=== PATIENT | male | born 1950 | race Caucasian/White ===

== ENCOUNTER 2018-12-30 14:28 | Emergency (ER) | payer OTHER | END 2018-12-30 15:50 | disposition home or self-care (01) | LOC: JERFT 14:28 ==

== ENCOUNTER 2019-12-10 09:23 | Inpatient (IN) | payer OTHER ==
--- NOTE | 2019-12-10 09:35 | PDOC ---
Rapid Medical Evaluation Medical Evaluation: Allergies Allergy/AdvReac Type Severity Reaction Status Date / Time NO Inhibitors Allergy Unknown Verified 11/19/19 08:44 lisinopril AdvReac Cough Verified 11/19/19 08:44 12/10/19 09:27 69 yo male h/o DM, HTN, CAD s/p bypass 1996 on plavix, CHF, CKD, anemia c/o fatigue, ROWELL x 1 month. worsening swelling to b/l LE and groin over the past [address] Bledsoe from wound center for fluid overload. had b/l LE dressings changed today. PMD Dr. Maravilla recently increased furosemide to 40 mg twice day for 5 days, today is day 4 out of 5, then back to 40 mg daily. VSS ill appearing b/l LE clean dressings noted A/P: ROWELL labs ecg cxr
--- NOTE | 2019-12-10 09:47 | PDOC ---
History of Present Illness - General Chief Complaint: Edema Stated Complaint: PAIN - History of Present Illness Initial Comments: Pt is a 69M w/ a history of DM, HTN, CAD s/p bypass 1996 (Plavix), CHF, CKD, anemia who presents for evaluation of 2 weeks of becoming easily fatigued with activity and worsening BLE swelling and worsening weeping from his lower legs. He states he was told to increase his Lasix dose from 40mg daily to 80mg daily for 5 days (today is day 5) w/ no improvement in his swelling. He states this last happened several years ago and was admitted for diuresis (at [facility]) He states that he now becomes tired after 10 step He reports BLE edema that is worsening over 2 weeks. He also reports right inner thigh pain. This was evaluated by Dr. Bledsoe and he was told it is likely due to his volume overload. Denies fevers/chills, chest pain, SOB, GONZALEZ, vision changes, dizziness, abdominal pain, N/V/C/D, or changes in strength/sensation 12/10/19 09:47 Past History - Medical History Allergies/Adverse Reactions: Allergies Allergy/AdvReac Type Severity Reaction Status Date / Time NO Inhibitors Allergy Unknown Verified 12/10/19 09:33 lisinopril AdvReac Cough Verified 12/10/19 09:33 Home Medications: Ambulatory Orders Omeprazole 40 mg PO DAILY 09/28/19 Carvedilol 12.5 mg PO Q12H 12/10/19 Clopidogrel Bisulfate [Clopidogrel] 75 mg PO DAILY 12/10/19 Cyanocobalamin [Vitamin B12 -] 1 tab PO DAILY 12/10/19 Ferrous Sulfate [Iron] 325 mg PO DAILY 12/10/19 Furosemide 40 mg PO BID 12/10/19 Hydralazine HCl 25 mg PO BID 12/10/19 Isosorbide Dinitrate [Isordil] 10 mg PO BID 12/10/19 Rosuvastatin [Crestor -] 20 mg PO HS 12/10/19 Anemia: Yes Asthma: No Cancer: No Cardiac Disorders: No CVA: No COPD: No CHF: Yes (quad bypass 3 cardiac stents) Dementia: No Diabetes: Yes GI Disorders: No Disorders: Yes (kidney function) HTN: Yes Hypercholesterolemia: Yes Liver Disease: No Seizures: No Thyroid Disease: No - Surgical History Abdominal Surgery: Yes (l ing hernia) Appendectomy: No Cardiac Surgery: Yes Cholecystectomy: No Lung Surgery: No Neurologic Surgery: No Orthopedic Surgery: Yes (left foot , great toe amputation, acl and meniscus repair 1994) - Psycho-Social/Smoking History Smoking History: Never smoked Have you smoked in the past 12 months: No If you are a former smoker, when did you quit?: 12yrs old stopped Information on smoking cessation initiated: No - Substance Abuse Hx (Audit-C & DAST Scrn) How often the patient has a drink containing alcohol: Never Score: In Men: 4 or > Positive; In Women: 3 or > Positive: 0 Screen Result (Pos requires Nsg. Audit-10AR): Negative In the last yr the pt used illegal drug/Rx for NonMed reason: No Score: Yes response is considered Positive: 0 Screen Result (Positive result requires Nsg. DAST-10): Negative Review of Systems - Review of Systems Able to Perform ROS?: Yes Comments:: GENERAL/CONSTITUTIONAL: No fever or chills HEAD, EYES, EARS, NOSE AND THROAT: No change in vision. No change in hearing. No sore throat CARDIOVASCULAR: +easy fatigue with exertion RESPIRATORY: Denies cough GASTROINTESTINAL: No nausea, vomiting, diarrhea or constipation GENITOURINARY: No dysuria MUSCULOSKELETAL: No joint or muscle swelling or pain. No neck or back pain SKIN: +recent rashes being treated with topical abx by dermatology NEUROLOGIC: No headache, vertigo, loss of consciousness, or change in strength/ sensation ENDOCRINE: No increased thirst HEMATOLOGIC/LYMPHATIC: +Plavix ALLERGIC/IMMUNOLOGIC: No hives or skin allergy 12/10/19 09:46 Is the patient limited Malay proficient: No *Physical Exam - Vital Signs Last Vital Signs Temp Pulse Resp BP Pulse Ox 98.5 F 66 20 176/77 H 98 12/10/19 09:28 12/10/19 09:28 12/10/19 09:28 12/10/19 09:28 12/10/19 09:28 - Physical Exam GENERAL: Awake, alert, and oriented to person/place/time, in no acute distress HEAD: No signs of trauma, normocephalic, atraumatic EYES: PERRLA, EOMI, sclera anicteric, conjunctiva clear ENT: Hearing grossly normal, nares patent, oropharynx clear without exudates. Moist mucosa LUNGS: No distress, speaks in full sentences, diminished at bases HEART: Regular rate and rhythm, normal S1 and S2, no murmurs appreciated, peripheral pulses normal and equal bilaterally ABDOMEN: Soft, nontender, normoactive bowel sounds. No guarding, no rebound EXTREMITIES: BLE edema to proximal thigh; B/l lower legs with dressings placed by wound care (unable to examine under them); moves all extremities independently, no cellulitis NEUROLOGICAL: Cranial nerves II through XII grossly intact. Normal speech, no focal sensorimotor deficits SKIN: As above otherwise warm, dry 12/10/19 09:46 ED Treatment Course - LABORATORY CBC & Chemistry Diagram: 12/11/19 06:05 12/11/19 06:05 - RADIOLOGY Radiograph Interpretation: RAD/CHEST X-RAY PORTABLE Single view of the chest reveals clear well aerated lungs, sharp angles, prominent heart and sternal sutures, some of which are broken along with clips. There is an unfolded aorta, normal adrienne and no sign of infiltrate or failure. Soft tissues are intact. There are degenerative changes. Correlation recommended. 12/10/19 10:59 Medical Decision Making - Medical Decision Making Pt is a 69M w/ a history of DM, HTN, CAD s/p bypass 1996 (Plavix), CHF, CKD, anemia who presents for evaluation of 2 weeks of becoming easily fatigued with activity and worsening BLE swelling and worsening weeping from his lower legs. ED Course CMP, CBC, Trop I, BNP ECG CXR ECG w/ RBBB; 1st degree AV block, MD 408; no axis deviation; QTc 507 (prolonged) CXR read w/o vascular congestion, PNA, or effusion Leukopenia noted, pt w/o fever or tachycardia Anemia noted, no indication to transfuse at this time Trop I neg BNP elevated, Lasix 80mg IV once given LFTs overall unremarkable Cr elevated, at baseline 12/10/19 10:31 Limited duplex of BLE w/o evidence of DVT Pt admitted to hypervolemia for diuresis Discharge - Discharge Information Problems reviewed: Yes Clinical Impression/Diagnosis: Leg swelling, Peripheral venous insufficiency Fatigue Qualifiers: Fatigue type: unspecified Qualified Code(s): R53.83 - Other fatigue Condition: Stable - Admission Yes - Follow up/Referral - Patient Discharge Instructions - Post Discharge Activity
[2019-12-10] MEDS ORDERED: FUROSEMIDE 40 MG/4 ML INJECTABLE VIAL ONE (10:24)
[2019-12-10] MEDS ORDERED: FUROSEMIDE 40 MG/4 ML INJECTABLE VIAL IVPUSH ONE (10:25)
[2019-12-10 10:30] LABS: BASO % 1.5 % (0-2.0); EOS % 2.7 % (0-4.5); HEMATOCRIT 32.1 % (35.4-49); HEMOGLOBIN 10.3 GM/dL (11.7-16.9); MCH 31.8 pg (25.7-33.7); MCHC 32.1 g/dl (32.0-35.9); MEAN CELL VOLUME 99.2 fl (80-96); NEUT % 66.8 % (42.8-82.8); PLATELET COUNT 78 K/MM3 (134-434); RBC 3.24 M/mm3 (4.00-5.60); RDW 16.7 % (11.9-15.9); WHITE BLOOD COUNT 3.7 K/mm3 (4.0-10.0)
[2019-12-10 10:38] LABS: INR 1.31 (0.83-1.09); PROTHROMBIN TIME (PATIENT) 15.5 SEC (9.7-13.0)
[2019-12-10 10:43] LABS: EPI CELLS 18 /uL (0-25.1); HYALINE CASTS 0 /uL (0-3.1); PH,URINE 6.5 (5.0-8.0); URINE APPEARANCE CLEAR; URINE BACTERIA 81 /uL (0-1359); URINE BILIRUBIN NEGATIVE (NEGATIVE); URINE COLOR YELLOW; URINE GLUCOSE (UA) NEGATIVE (NEGATIVE); URINE KETONE NEGATIVE (NEGATIVE); URINE LEUK ESTERASE NEGATIVE (NEGATIVE); URINE NITRITE NEGATIVE (NEGATIVE); URINE PROTEIN 3+ (NEGATIVE); URINE RBC 3 /uL (0-23.9); URINE WBC 10 /uL (0-25.8)
[2019-12-10 10:58] LABS: ALBUMIN 3.5 g/dl (3.4-5.0); ALK PHOS 70 U/L (45-117); ANION GAP 9 MMOL/L (8-16); BILIRUBIN,TOTAL 1.1 mg/dL (0.2-1); BLOOD UREA NITROGEN 47.7 mg/dL (7-18); CALCIUM 8.8 mg/dL (8.5-10.1); CHLORIDE 104 mmol/L (98-107); CO2 27 mmol/L (21-32); CREATININE 2.8 mg/dL (0.55-1.3); GLUCOSE,RANDOM 165 mg/dL (74-106); MAGNESIUM 2.3 mg/dL (1.8-2.4); N-TERMINAL BNP 7839.3 pg/ml (5-125); POTASSIUM 4.1 mmol/L (3.5-5.1); SGOT/AST 20 U/L (15-37); SGPT/ALT 15 U/L (13-61); SODIUM 139 mmol/L (136-145); TOT PROT 7.1 g/dl (6.4-8.2)
--- NOTE | 2019-12-10 11:50 | EKG ---
Test Reason : Blood Pressure : / mmHG Vent. Rate : 065 BPM Atrial Rate : 065 BPM P-R Int : 408 ms QRS Dur : 154 ms QT Int : 488 ms P-R-T Axes : 011 087 -69 degrees QTc Int : 507 ms SINUS RHYTHM WITH 1ST DEGREE A-V BLOCK RIGHT BUNDLE BRANCH BLOCK T WAVE ABNORMALITY, CONSIDER INFEROLATERAL ISCHEMIA ABNORMAL ECG NO PREVIOUS ECGS AVAILABLE Confirmed by Brittney Madera ([id number]) on 12/10/2019 11:50:19 AM Referred By: Confirmed By:Brittney Madera
--- NOTE | 2019-12-10 12:45 | HP ---
CHIEF COMPLAINT: worsening b/l LE swelling PCP: Dr. Maravilla HISTORY OF PRESENT ILLNESS: 69M w/ pmhx of DM, HTN, CAD (s/p bypass surgery, 1996), CHF, CKD presents in the ED for worsening b/l LE swelling. He was sent by [facility] ([facility]) for further evaluation of his b/l LE swelling. States over the past 2 weeks, he started noticing his legs more swollen, R > L, and was told by his PCP to take an extra dose of PO Lasix 40 in the evening for a total of 5 days. Today was his 4th day of taking an extra Lasix 40, but he had not noticed any improvement in the swelling. Additionally, he reports the swelling has worsened to the point where he has to stop 30 times when he walks outside (baseline he stops 10 times), due to worsening pain and swelling in his R leg. Denies magaña/c, f/c, n/v, chest pain, sob, robles, abd pain, urinary/bowel symptoms. States he takes all his medications as prescribed. He does not currently see a practice business asst as his PCP manages all his conditions. ER course was notable for: (1) Afebrile, BP 166/72, 96 RA (2) IV Lasix 80 mg; CXR showed no infiltrate/failure (3) Duplex ordered Recent Travel: Denies PAST MEDICAL HISTORY: As per HPI FAMILY HISTORY: Father - [place], at age 54 Mother - DM PAST SURGICAL HISTORY: CABG (1996) R ACL/mensicus repair cardiac stents x3 R leg angio/atherectom/angioplasty hernia repair Social History: Smoking: Denies Alcohol: Denies Drugs: Denies Walks with cane Allergies NO Inhibitors Allergy (Unknown, Verified 12/10/19 09:33) lisinopril Adverse Reaction (Verified 12/10/19 09:33) Cough Home Medications (Reconciled with PCP) Medication Instructions Recorded Clopidogrel Bisulfate [Plavix] 75 mg PO DAILY #30 tablet 01/12/18 Omeprazole 40 mg PO DAILY 09/28/19 Carvedilol 12.5 mg PO Q12H 12/10/19 Cyanocobalamin [Vitamin B12 -] 1 tab PO DAILY 12/10/19 Ferrous Sulfate [Iron] 325 mg PO DAILY 12/10/19 Furosemide 40 mg PO BID 12/10/19 Hydralazine HCl 25 mg PO BID 12/10/19 Isosorbide Dinitrate [Isordil] 10 mg PO BID 12/10/19 Rosuvastatin [Crestor -] 20 mg PO HS 12/10/19 REVIEW OF SYSTEMS CONSTITUTIONAL: Absent: fever, chills, diaphoresis, generalized weakness, malaise, loss of appetite, weight change HEENT: Absent: rhinorrhea, nasal congestion, throat pain, throat swelling, difficulty swallowing, mouth swelling, ear pain, eye pain, visual changes CARDIOVASCULAR: peripheral edema Absent: chest pain, syncope, palpitations, irregular heart rate, lightheadedness, RESPIRATORY: Absent: cough, shortness of breath, dyspnea with exertion, orthopnea, wheezing, stridor, hemoptysis GASTROINTESTINAL: Absent: abdominal pain, abdominal distension, nausea, vomiting, diarrhea, constipation, melena, hematochezia GENITOURINARY: Absent: dysuria, frequency, urgency, hesitancy, hematuria, flank pain, genital pain MUSCULOSKELETAL: Absent: myalgia, arthralgia, joint swelling, back pain, neck pain SKIN: Absent: rash, itching, pallor HEMATOLOGIC/IMMUNOLOGIC: Absent: easy bleeding, easy bruising, lymphadenopathy, frequent infections ENDOCRINE: Absent: unexplained weight gain, unexplained weight loss, heat intolerance, cold intolerance NEUROLOGIC: Absent: headache, focal weakness or paresthesias, dizziness, unsteady gait, seizure, mental status changes, bladder or bowel incontinence PSYCHIATRIC: Absent: anxiety, depression, suicidal or homicidal ideation, hallucinations. PHYSICAL EXAMINATION Vital Signs - 24 hr 12/10/19 12/10/19 12/10/19 09:28 10:40 10:56 Temperature 98.5 F Pulse Rate 66 Pulse Rate [ 83 Apical] Respiratory 20 26 H Rate Blood Pressure 176/77 H Blood Pressure 166/72 [Right Arm] O2 Sat by Pulse 98 96 96 Oximetry (%) GENERAL: Well-appearing, elderly male. NAD. AAOx3. HEENT: AT/NC. EOMI. MMM. NECK: Supple, no JVD. LUNGS: CTA B/L. No wheezes/rales noted. HEART: RRR. Normal S1, S2. NO murmurs noted. ABDOMEN: Obese, soft, nondistended. Mild +TTP MUSCULOSKELETAL: Moves all extremities. Limited RLE hip flexion. EXTREMITIES: BLE wrapped in dressing from base of toes to below the knee, unable to assess b/l LE ulcers, dressings c/d/i; L hallux amputation; stump clean dry well-healed. Visible swelling of RLE from knee to thigh, mild +TTP in R inner thigh. NEUROLOGICAL: Cranial nerves II-XII intact. Normal speech. Decreased sensation in R foot. PSYCHIATRIC: Cooperative. Good eye contact. Appropriate mood and affect. SKIN: Warm, dry, normal turgor, no rashes or lesions noted, normal capillary refill. CBCD WBC 3.7 K/mm3 (4.0-10.0) L 12/10/19 10:15 RBC 3.24 M/mm3 (4.00-5.60) L 12/10/19 10:15 Hgb 10.3 GM/dL (11.7-16.9) L 12/10/19 10:15 Hct 32.1 % (35.4-49) L 12/10/19 10:15 MCV 99.2 fl (80-96) H 12/10/19 10:15 MCHC 32.1 g/dl (32.0-35.9) 12/10/19 10:15 RDW 16.7 % (11.9-15.9) H 12/10/19 10:15 Plt Count 78 K/MM3 (134-434) L 12/10/19 10:15 MPV 10.0 fl (7.5-11.1) 12/10/19 10:15 CMP Sodium 139 mmol/L (136-145) 12/10/19 10:15 Potassium 4.1 mmol/L (3.5-5.1) 12/10/19 10:15 Chloride 104 mmol/L (98-107) 12/10/19 10:15 Carbon Dioxide 27 mmol/L (21-32) 12/10/19 10:15 Anion Gap 9 MMOL/L (8-16) 12/10/19 10:15 BUN 47.7 mg/dL (7-18) H 12/10/19 10:15 Creatinine 2.8 mg/dL (0.55-1.3) H 12/10/19 10:15 Calcium 8.8 mg/dL (8.5-10.1) 12/10/19 10:15 Total Bilirubin 1.1 mg/dL (0.2-1) H 12/10/19 10:15 AST 20 U/L (15-37) 12/10/19 10:15 ALT 15 U/L (13-61) 12/10/19 10:15 Alkaline Phosphatase 70 U/L (45-117) 12/10/19 10:15 Total Protein 7.1 g/dl (6.4-8.2) 12/10/19 10:15 Albumin 3.5 g/dl (3.4-5.0) 12/10/19 10:15 IMAGING: * CXR: no sign of infiltrate or failure * B/l LE duplex: No DVT in either leg ASSESSMENT/PLAN: 69M w/ pmhx of DM, HTN, CAD (s/p bypass surgery, 1996), CHF, CKD presents in the ED for worsening b/l LE swelling. #Fluid Overload; 2/2 chronic venous insufficiency vs. CHF exacerbation -Clinically, pt's has no symptoms of sob/robles, lungs are clear b/l and does not appear to have pulmonary vascular congestion. He does have swelling in lower extremity, R > L, with BNP ~7800, but pt also has CKD which may falsely elevate levels. Pt also reports he has had this issue in the past which usually improves with increased dosages of diuretic. Will cont with IV Lasix for now and monitor volume status daily. -IV Lasix 80 mg given, will cont with IV Lasix 40 mg BID -Trops neg x1, will cont to trend -CXR showed no acute process -I/O's, Daily weights -Echo ordered -LE duplex showed no evid of DVT in b/l LE -PT ordered Cont home meds: Plavix 75, Isosorbide Dinitrate 10 BID #PVD w/ Bilateral LE ulcers; s/p angioplasty/stent. Cont routine wound care per vasc surg. OP follow up. Will hold anti-platelet for no in setting of thrombocytopenia. Cont home meds: Crestor 20 #DM; Reported latest A1c ~6.5 and was recently told by PCP to d/c insulin. Will monitor for now. BGM/ISS ACHS. #CKD; Cr 2.8. Follows with nephro as outpatient. No acute issues. Avoid nephrotoxic agents. #Macrocytic Anemia; Cont home meds: Ferrous Sulfate 325, Vitamin B12 100 mcg #Thrombocytopenia; Hold all anti-platelets for now. Will cont to trend CBC, get manual diff, consult heme. #HTN/HLD; Cont home meds: Coreg 12.5 BID, Hydralazine 25 BID, Crestor 20 #CAD (s/p CABG + 3 stents). Cont home meds: Coreg 12.5 BID, Crestor 20 #Prophylaxis DVT: SCD/TEDs, will hold on chemical ppx in setting of thrombocytopenia GI: PPI #FEN -no IVf -recheck lytes in AM -diabetic/sodium-controlled diet Dispo -admit to tele Family Medical History Family Hx Cardiac Disorders: Father ( at age 54) Family Hx Diabetes: Mother Visit type - Medication Review Med list reviewed for High Risk Meds patients 65 and older: Yes - Emergency Visit Emergency Visit: Yes ED Registration Date: 12/10/19 Care time: The patient presented to the Emergency Department on the above date and was hospitalized for further evaluation of their emergent condition. - New Patient This patient is new to me today: Yes Date on this admission: 12/10/19 - Critical Care Critical Care patient: No ATTENDING PHYSICIAN STATEMENT I saw and evaluated the patient. I reviewed the resident's note and discussed the case with the resident. I agree with the resident's findings and plan as documented. SUBJECTIVE: OBJECTIVE: ASSESSMENT AND PLAN:
--- NOTE | 2019-12-10 13:45 | PDOC ---
Documentation entered by Nish Hale SCRIBE, acting as scribe for Christine Santoro MD. Christine Santoro MD: This documentation has been prepared by the lázaroe, Nish Hale SCRIBE, under my direction and personally reviewed by me in its entirety. I confirm that the documentation accurately reflects all work, treatment, procedures, and medical decision making performed by me. Attending Attestation - Resident Resident Name: Jayme Boyd - ED Attending Attestation I have performed the following: I have examined & evaluated the patient, The case was reviewed & discussed with the resident, I agree w/resident's findings & plan, Exceptions are as noted - HPI HPI: 12/10/19 10:27 The patient is a 69 year old male with a significant past medical history of insulin-dependent diabetes, HTN, CAD with bypass, and venous insufficiency who presents to the ED from wound care (Dr. Bledsoe) with bilateral lower leg edema and weeping wounds. Patient reports he has had a cough and weakness with walking as well as dyspnea lying down for the past month. Patient endorses decreased urination in response to lasix which was recently increased to 80mg. Patient denies fever, abdominal pain, headache, or any weakness. Pt denies CP, dizziness, headache, focal weakness/numbness. Patient denies any other symptoms. Allergies: NO Inhibitors, lisinopril - Physicial Exam PE: 12/10/19 10:29 Agree with resident exam - Medical Decision Making 12/10/19 13:39 69yo M presents to the ED with LE edema, ROWELL, fatigue. DDx includes CHF vs PNA vs ACS vs PE Given LE edema, obtained US DVT of LE which was negative. No other PE risk facors W/u with elevated BNP, also bedside sono with full IVC - likely fluid overload although CXR is mostly clear Plan for IV lasix, admit for further evaluation Discharge - Discharge Information Problems reviewed: Yes Clinical Impression/Diagnosis: Leg swelling Fatigue Qualifiers: Fatigue type: unspecified Qualified Code(s): R53.83 - Other fatigue - Follow up/Referral - Patient Discharge Instructions - Post Discharge Activity
--- NOTE | 2019-12-10 13:48 | PN ---
Teaching Attending Note Name of Resident: Daisy Jolley ATTENDING PHYSICIAN STATEMENT I saw and evaluated the patient. I reviewed the resident's note and discussed the case with the resident. I agree with the resident's findings and plan as documented. SUBJECTIVE:69M w/ pmhx of DM, HTN, CAD (s/p bypass surgery, 1996), CHF, PAD s/p L leg angioplasty and stent placement, CKD presents in the ED for worsening b/l LE swelling. He was sent by [facility] ([facility]) where he was seen for chronic eduardo leg wounds, for further evaluation of his b/l LE swelling. States over the past 2 weeks, he started noticing his legs more swollen, R > L, and was told by his PCP to take an extra dose of PO Lasix 40 in the evening for a total of 5 days. Today was his 4th day of taking an extra Lasix 40, but he had not noticed any improvement in the swelling. Additionally, he reports the swelling has worsened to the point where he has to stop 30 times when he walks outside (baseline he stops 10 times), due to worsening pain and swelling in his R leg. has been compliant with the meds, Denies magaña/c, f/c, n/v, chest pain, sob, robles, abd pain, urinary/bowel symptoms. States he takes all his medications as prescribed. He does not currently see a aws developer as his PCP manages all his conditions. OBJECTIVE: O/E appears comfortable, nad, alert awake oriented into 3, vss neck supple no jvd, cvs s1/s2/0 chest ctab abd soft nt no, bs+ ext bilateral leg edema, and legs wrapped in the dresseing( as per vascular surgery not to unwrap till week later, has clean wounds, ) neuro non focal, ASSESSMENT AND PLAN: 69M w/ pmhx of DM, HTN, CAD (s/p bypass surgery, 1996), CHF, CKD presents in the ED for worsening b/l LE swelling. #Fluid Overload; with h/o chf, and venous insufficiency, no improvement with po diuretics, discussed with dr Bledsoe and inpt iv diuretics, and dc planning when pt is euvolemic, 2/2 chronic venous insufficiency vs. CHF exacerbation , will cont with IV Lasix 40 mg BID check cardiac markers, 1st neg, CXR showed no acute process I/O's, Daily weights Echo ordered LE duplex showed no evid of DVT in b/l LE Isosorbide Dinitrate 10 BID #DM; Reported latest A1c ~6.5 and was recently told by PCP to d/c insulin. Will monitor for now. BGM/ISS ACHS. #CKD; Cr 2.8. Follows with nephro as outpatient. No acute issues. Avoid nephrotoxic agents. #Macrocytic Anemia; chronic Cont home meds: #Thrombocytopenia; Hold all anti-platelets for now. check manual diff and manual platelet count, monitor, #HTN/HLD; Cont home meds: Coreg 12.5 BID, Hydralazine 25 BID, Crestor 20 #CAD (s/p CABG + 3 stents). Cont home meds: Coreg 12.5 BID, Crestor 20 #Prophylaxis DVT: SCD/TEDs, will hold on chemical ppx in setting of thrombocytopenia GI: PPI
[2019-12-10] MEDS ORDERED: HEPARIN NA (PORCINE) 5,000 UNITS/ML 1ML VIAL SQ SCH (14:00)
[2019-12-10] MEDS ORDERED: CARVEDILOL 12.5 MG TABLET (FP) PO SCH (14:00)
[2019-12-10] MEDS ORDERED: HEPARIN NA (PORCINE) 5,000 UNITS/ML 1ML VIAL ONE (14:05)
[2019-12-10] MEDS: INSULIN SLIDING SCALE (NOVOLOG) 1 VIAL SQ SCH ×2 (17:00→22:30)
[2019-12-10] MEDS ORDERED: INSULIN SLIDING SCALE (NOVOLOG) 1 VIAL SQ ONE (17:04)
--- NOTE | 2019-12-10 17:07 | ECHO ---
Version: 1 Name: PILLO HYLTON Exam: Adult Echocardiogram Study Date: 12/10/2019, 3:19 PM Age: 69 Years MMode/2D Measurements & Calculations IVSd: 1.19 cm LVIDs: 2.9 cm LVIDd: 4.3 cm LVPWd: 1.08 cm LAV (MOD-bp): 65.0 ml ACS: 1.36 cm Ao root diam: 2.9 cm LVOT diam: 2.00 cm LA dimension: 4.7 cm Doppler Measurements & Calculations MV E max fermín: 117.9 cm/sec Med E/e': 30.2 MV A max fermín: 82.3 cm/sec Med Peak E' Fermín: 3.9 cm/sec MV E/A: 1.43 Lat E/e': 15.1 Lat Peak E' Fermín: 7.8 cm/sec Ao max P.7 mmHg PAUL(I,D): 1.41 cm Ao mean P.2 mmHg LV V1 mean: 51.7 cm/sec Ao V2 max: 147.8 cm/sec LV V1 mean P.20 mmHg TR max fermín: 274.2 cm/sec TR max P.4 mmHg Procedure The study was technically limited with all images being suboptimal in quality. Left Ventricle The left ventricle is grossly normal size. There is mild asymmetric left ventricular hypertrophy. Th e left ventricular ejection fraction is normal. Ejection Fraction = 55-60%. Diastolic dysfunction, Grade II (pseudonormalization pattern). Right Ventricle Borderline right ventricular enlargement. The right ventricular systolic function is normal. Atria The left atrium is mildly dilated. Right atrial size is normal. Mitral Valve There is moderate mitral valve thickening. There is mild to moderate mitral annular calcification. T here is trace to mild mitral regurgitation. Tricuspid Valve The tricuspid valve is not well visualized, but is grossly normal. There is mild tricuspid regurgita tion. Right ventricular systolic pressure is elevated at 40-50mmHg. There is mild pulmonary hypertension. Aortic Valve The aortic valve is not well visualized. No aortic regurgitation is present. Pulmonic Valve The pulmonic valve is not well visualized. Great Vessels The aortic root is not well visualized. Pericardium/Pleura There is no pericardial effusion. Tech Comments TDS due to body habitus. Patient scanned supine. Summary Statements Technically limited study LV: Grossly normal size,mild LVH,normal systolic function EF 55-60%,diastolic dysfunction grade II RV: Borderline enlargement, appears normal in function LA: Mildly dilated Clcified aortic valve ,mildly restricted Mild TR with mild pulmonary HTN Rob Cassy 12/10/2019, 5:06 PM Ordering Physician: Daisy Toro Referring Physician: DAISY TORO Performed By: Emily Groves
[2019-12-10] MEDS ORDERED: ISOSORBIDE DINITRATE 10 MG TABLET (FP) PO SCH (22:00)
[2019-12-10] MEDS ORDERED: PT OWN MED DRAWER 7, Y5N ONE (22:07)
[2019-12-10] MEDS: ROSUVASTATIN CA 20 MG TABLET (FP) PO SCH (22:17)
[2019-12-10] MEDS: hydrALAZINE HCL 25 MG TABLET (FP) PO SCH (22:17)
[2019-12-10] MEDS: CARVEDILOL 12.5 MG TABLET (FP) PO SCH (22:21)
[2019-12-10] MEDS ORDERED: INSULIN (NOVOLOG) ASPART 100 UNITS/ML 10ML VIAL ONE (22:28)
--- NOTE | 2019-12-10 23:49 | CON.HO ---
Consult - text type - Consultation Consultation Note: 69M w/ a history of DM, HTN, CAD s/p bypass 1996 (Plavix), CHF, CKD, anemia who presents for evaluation of 2 weeks of becoming easily fatigued with activity and worsening BLE swelling and worsening weeping from his lower legs. He states he was told to increase his Lasix dose from 40mg daily to 80mg daily for 5 days (today is day 5) w/ no improvement in his swelling. He reports BLE edema that is worsening over 2 weeks. He also reports right gluteal pain, nonradiating Denies fevers/chills, chest pain, SOB, GONZALEZ, vision changes, dizziness, abdominal pain, N/V/C/D, or changes in strength/sensation Allergies/Adverse Reactions: Allergies Allergy/AdvReac Type Severity Reaction Status Date / Time NO Inhibitors Allergy Unknown Verified 12/10/19 09:33 lisinopril AdvReac Cough Verified 12/10/19 09:33 Home Medications: Ambulatory Orders Coreg 25 mg PO BID 09/15/15 Crestor 20 mg PO HS 09/15/15 Isosorbide Dinitrate 10 mg PO BID 09/15/15 Lasix - 40 mg PO BID 09/15/15 Novolog 10 unit SQ DAILY PRN 09/15/15 Clopidogrel Bisulfate [Plavix] 75 mg PO DAILY #30 tablet 01/12/18 Omeprazole 40 mg PO DAILY 09/28/19 Cyanocobalamin [Vitamin B12 -] 1 tab PO DAILY 12/10/19 Ferrous Sulfate [Iron] 325 mg PO DAILY 12/10/19 PMH Anemia: Yes CHF: Yes (quad bypass 3 cardiac stents) Diabetes: Yes Disorders: Yes (kidney function) HTN: Yes Hypercholesterolemia: Yes - Surgical History Abdominal Surgery: Yes (l ing hernia) Cardiac Surgery: Yes Orthopedic Surgery: Yes (left foot , great toe amputation, acl and meniscus repair 1994) - Psycho-Social/Smoking History Smoking History: Never smoked If you are a former smoker, when did you quit?: 12yrs old stopped - Substance Abuse Hx (Aud[facility] & [facility]) How often the patient has a drink containing alcohol: Never *Physical Exam - Vital Signs Last Vital Signs Temp Pulse Resp BP Pulse Ox 98.5 F 66 20 176/77 H 98 12/10/19 09:28 12/10/19 09:28 12/10/19 09:28 12/10/19 09:28 12/10/19 09:28 - Physical Exam Cor: RSR, No murmurs, No gallops Lungs: Clear to P&A Abd: Soft, Normal bowel sounds, No organomegaly BLE wrapped in dressing from base of toes to below the knee, unable to assess b/l LE ulcers, dressings c/d/i; L hallux amputation; stump clean dry well- healed. Visible swelling of RLE from knee to thigh, RAD/CHEST X-RAY PORTABLE Single view of the chest reveals clear well aerated lungs, sharp angles, prominent heart and sternal sutures, some of which are broken along with clips. There is an unfolded aorta, normal adrienne and no sign of infiltrate or failure. Soft tissues are intact. There are degenerative changes. Labs/MEds reviewed A/P Pt is a 69M w/ a history of DM, HTN, CAD s/p bypass 1996 (Plavix), CHF, CKD, anemia who presents for evaluation of 2 weeks of becoming easily fatigued with activity and worsening BLE swelling and worsening weeping from his lower legs. ECG w/ RBBB; 1st degree AV block, RI 408; no axis deviation; QTc 507 (prolonged) CXR read w/o vascular congestion, PNA, or effusion Pancytopenia/macrocytic anemia ? consumption related to CHF r/o occult infxn --- ? wound infxn. check cultures r/o B12/folate deficiency. check TSH check U/S liver/spleen If above w/u neg. will consider w/u for marrow pathology
[2019-12-11] MEDS ORDERED: ACETAMINOPHEN 325 MG TABLET (FP) PO ONE (01:49)
[2019-12-11] MEDS: INSULIN SLIDING SCALE (NOVOLOG) 1 VIAL SQ SCH ×4 (06:21→21:43)
[2019-12-11] MEDS: FUROSEMIDE 40 MG/4 ML INJECTABLE VIAL IVPUSH SCH ×2 (06:22→13:47)
[2019-12-11 06:52] LABS: BASO % 1.3 % (0-2.0); EOS % 2.8 % (0-4.5); HEMATOCRIT 32.8 % (35.4-49); HEMOGLOBIN 10.6 GM/dL (11.7-16.9); LYMPH % 20.7 % (8-40); MCH 32.1 pg (25.7-33.7); MCHC 32.3 g/dl (32.0-35.9); MEAN CELL VOLUME 99.5 fl (80-96); MEAN PLT VOLUME 10.3 fl (7.5-11.1); MONO % 14.7 % (3.8-10.2); NEUT % 60.5 % (42.8-82.8); PLATELET COUNT 76 K/MM3 (134-434); RDW 16.4 % (11.9-15.9); WHITE BLOOD COUNT 4.2 K/mm3 (4.0-10.0)
[2019-12-11 07:27] LABS: ALBUMIN 3.4 g/dl (3.4-5.0); BILIRUBIN,TOTAL 0.9 mg/dL (0.2-1); BLOOD UREA NITROGEN 48.6 mg/dL (7-18); CALCIUM 8.6 mg/dL (8.5-10.1); CREATININE 2.8 mg/dL (0.55-1.3); MAGNESIUM 2.4 mg/dL (1.8-2.4); PHOSPHOROUS 3.6 mg/dL (2.5-4.9); TOT PROT 7.2 g/dl (6.4-8.2)
[2019-12-11] MEDS ORDERED: PT OWN MED DRAWER 7, Y5N ONE ×2 (09:31→17:09)
[2019-12-11] MEDS: hydrALAZINE HCL 25 MG TABLET (FP) PO SCH ×2 (09:36→21:38)
[2019-12-11] MEDS: ISOSORBIDE DINITRATE 10 MG TABLET (FP) PO SCH ×2 (09:36→17:56)
[2019-12-11] MEDS: CARVEDILOL 12.5 MG TABLET (FP) PO SCH ×2 (09:36→21:38)
[2019-12-11] MEDS: FERROUS SO4 325 MG TABLET (FP) PO SCH (09:36)
[2019-12-11] MEDS: PANTOPRAZOLE 40 MG TABLET PO SCH (09:36)
[2019-12-11] MEDS ORDERED: FUROSEMIDE 40 MG/4 ML INJECTABLE VIAL IVPUSH SCH (10:00)
[2019-12-11] MEDS ORDERED: CLOPIDOGREL BISULFATE 75 MG TABLET (FP) PO SCH (10:00)
[2019-12-11] MEDS ORDERED: INSULIN (NOVOLOG) ASPART 100 UNITS/ML 10ML VIAL ONE ×2 (11:26→17:50)
[2019-12-11] MEDS: CYANOCOBALAMIN (VITAMIN B-12) 100 MCG TABLET PO SCH (11:43)
--- NOTE | 2019-12-11 13:06 | PN ---
Teaching Attending Note Name of Resident: Maria C Moncada ATTENDING PHYSICIAN STATEMENT I saw and evaluated the patient. I reviewed the resident's note and discussed the case with the resident. I agree with the resident's findings and plan as documented. SUBJECTIVE: pt was seen and examined at bedside, reported improvement of breathing and leg swelling, denies chest pain OBJECTIVE: Last Vital Signs Temp Pulse Resp BP Pulse Ox 97.6 F 71 20 160/86 97 12/11/19 10:00 12/11/19 10:00 12/11/19 10:00 12/11/19 10:12/11/19 09:00 GENERAL: Awake, alert, and fully oriented, in no acute distress. HEENT: neck supple, obese unable to assess JVD LUNGS: bilateral lower lobe rales. HEART: Regular rate and rhythm, normal S1 and S2 ABDOMEN: obese, Soft, nontender, not distended MUSCULOSKELETAL: both legs wrapped in surgical dressing, pt wanted his surgeon to change the dressing if needed UPPER EXTREMITIES: 2+ pulses, warm, well-perfused. No cyanosis. No clubbing. No peripheral edema. LOWER EXTREMITIES: 2+ pulses, warm, well-perfused. No calf tenderness. Edema extending to knees +3. NEUROLOGICAL: Cranial nerves II-XII intact. Normal speech. ASSESSMENT AND PLAN: 69M w/ a history of DM, HTN, CAD s/p bypass 1996 (Plavix), CHF, CKD, anemia who presents for evaluation of 2 weeks of becoming easily fatigued with activity and worsening BLE swelling and worsening weeping from his lower legs. not fully responding to PO furosemide #Acute on chronic CHF, unknown type will attempt to obtain previous ECHO; with h/o venous insufficiency, IV furosemide, until euvolemic check cardiac markers, 1st neg, CXR showed no acute process I/O's, Daily weights Echo ordered c/w home meds #DM; #CKD; Cr 2.8. Follows with nephro as outpatient. No acute issues. Avoid nephrotoxic agents. #Macrocytic Anemia; chronic check B12, folate, supplement if B12 <400 trend H&H #Thrombocytopenia; US showed splenomegaly Eitiology unknown, pt reported no previous thrombocytopenia hx possible causes: B12 def, consumption, infetion, TSH hold heparin, peripheral smear check B12, TSH, folate if normal then will extend further work up #HTN/HLD; Cont home meds: Coreg 12.5 BID, Hydralazine 25 BID, Crestor 20 #CAD (s/p CABG + 3 stents). Cont home meds: Coreg 12.5 BID, Crestor 20 #Prophylaxis DVT: SCD/TEDs, will hold on chemical ppx in setting of thrombocytopenia GI: PPI
--- NOTE | 2019-12-11 13:37 | PN ---
Physical Exam: SUBJECTIVE: Patient seen and examined at bedside this morning. Patient reports feeling well and noted significant improvement in his leg swelling. He denies any fever, chills, headache, dizziness, chest pain, shortness of breath, abdominal pain, urinary symptoms. OBJECTIVE: Vital Signs Temperature 97.6 F 12/11/19 10:00 Pulse Rate 71 12/11/19 10:00 Respiratory Rate 20 12/11/19 10:00 Blood Pressure 160/86 12/11/19 10:00 O2 Sat by Pulse Oximetry (%) 97 12/11/19 09:00 GENERAL: The patient is awake, alert, and fully oriented, in no acute distress. NECK: full range of motion, supple. LUNGS: Fine bibasilar crackles HEART: Regular rate and rhythm, S1, S2 ABDOMEN: Soft, nontender, nondistended, normoactive bowel sounds EXTREMITIES: 2+ pulses, warm, well-perfused, B/L LE wrapped in bandage NEUROLOGICAL: Cranial nerves II through XII grossly intact. Normal speech PSYCH: Normal mood, normal affect. SKIN: Warm, dry, normal turgor Laboratory Results - last 24 hr 12/10/19 12/10/19 12/10/19 16:58 18:35 22:25 WBC RBC Hgb Hct MCV MCH MCHC RDW Plt Count MPV Absolute Neuts (auto) Neutrophils % Lymphocytes % Monocytes % Eosinophils % Basophils % Nucleated RBC % Sodium Potassium Chloride Carbon Dioxide Anion Gap BUN Creatinine Est GFR (CKD-EPI)AfAm Est GFR (CKD-EPI)NonAf POC Glucometer 201 254 Random Glucose Hemoglobin A1c % Calcium Phosphorus Magnesium Total Bilirubin AST ALT Alkaline Phosphatase LD Total Troponin I < 0.02 Total Protein Albumin TSH Free T4 12/11/19 12/11/19 12/11/19 05:41 06:05 06:05 WBC 4.2 RBC 3.30 L Hgb 10.6 L Hct 32.8 L MCV 99.5 H MCH 32.1 MCHC 32.3 RDW 16.4 H Plt Count 76 L MPV 10.3 Absolute Neuts (auto) 2.5 Neutrophils % 60.5 Lymphocytes % 20.7 D Monocytes % 14.7 H Eosinophils % 2.8 Basophils % 1.3 Nucleated RBC % 0 Sodium 139 Potassium 4.0 Chloride 103 Carbon Dioxide 29 Anion Gap 7 L BUN 48.6 H Creatinine 2.8 H Est GFR (CKD-EPI)AfAm 25.34 Est GFR (CKD-EPI)NonAf 21.86 POC Glucometer 135 Random Glucose 146 H Hemoglobin A1c % Calcium 8.6 Phosphorus 3.6 Magnesium 2.4 Total Bilirubin 0.9 AST 17 ALT 15 Alkaline Phosphatase 65 LD Total 187 Troponin I Total Protein 7.2 Albumin 3.4 TSH 0.50 Free T4 1.24 H 12/11/19 12/11/19 06:05 11:11 WBC RBC Hgb Hct MCV MCH MCHC RDW Plt Count MPV Absolute Neuts (auto) Neutrophils % Lymphocytes % Monocytes % Eosinophils % Basophils % Nucleated RBC % Sodium Potassium Chloride Carbon Dioxide Anion Gap BUN Creatinine Est GFR (CKD-EPI)AfAm Est GFR (CKD-EPI)NonAf POC Glucometer 208 Random Glucose Hemoglobin A1c % 6.7 H Calcium Phosphorus Magnesium Total Bilirubin AST ALT Alkaline Phosphatase LD Total Troponin I Total Protein Albumin TSH Free T4 Active Medications Generic Name Dose Route Start Last Admin Trade Name Freq PRN Reason Stop Dose Admin Carvedilol 12.5 mg 12/10/19 14:44 12/11/19 09:36 Coreg - PO 12.5 mg BID ISH Administration Cyanocobalamin 100 mcg 12/11/19 10:00 12/11/19 11:43 Vitamin B12 - PO 100 mcg DAILY ISH Administration Ferrous Sulfate 325 mg 12/11/19 10:00 12/11/19 09:36 Feosol - PO 325 mg DAILY ISH Administration Furosemide 40 mg 12/11/19 06:00 12/11/19 06:22 Lasix Injection - IVPUSH 40 mg BIDLASIX ISH Administration Hydralazine HCl 25 mg 12/10/19 22:00 12/11/19 09:36 Apresoline - PO 25 mg BID ISH Administration Insulin Aspart 1 vial 12/10/19 16:30 12/11/19 11:42 Novolog Vial Sliding Scale - SQ 4 units ACHS ISH Administration Protocol Isosorbide Dinitrate 10 mg 12/11/19 10:00 12/11/19 09:36 Isordil - PO 10 mg BIDISORDIL ISH Administration Pantoprazole Sodium 40 mg 12/11/19 10:00 12/11/19 09:36 Protonix - PO 40 mg DAILY ISH Administration Rosuvastatin Calcium 20 mg 12/10/19 22:00 12/10/19 22:17 Crestor - PO 20 mg HS ISH Administration ASSESSMENT/PLAN: Patient is a 69M w/ pmhx of DM, HTN, CAD (s/p bypass surgery, 1996), CHF, CKD presents in the ED for worsening bilateral LE swelling. #Acute on Chronic CHF -Echo (12/09) - LV grossly normal size, mild LVH, normal systolic function EF 55- 60%, diastolic dysfunction grade II. Calcified aortic valve, mildly restricted. Mild TR with mild pulmonary HTN -will continue with IV Lasix 40 mg BID -Trops neg x2 -CXR showed no acute process -I/O's, Daily weights -LE duplex showed no evid of DVT in b/l LE -Physical therapy -Cont Coreg 12.5mg bid #PVD w/ Bilateral LE ulcers -s/p angioplasty/stent. -Cont routine wound care. Vascular surgery consulted. -Will hold Plavix in setting of thrombocytopenia. #DM -A1c ~6.7 -BGM/ISS ACHS. #CKD -Cr 2.5. (currently at baseline) -Follows with nephro as outpatient. -Avoid nephrotoxic agents. #Macrocytic Anemia -Cont home meds: Ferrous Sulfate 325, Vitamin B12 100 mcg -Folate and Vit b12 levels pending #Thrombocytopenia -Hold all anti-platelets for now. -Will cont to trend CBC -Heme-onc (Dr. Cintron) consulted. REcommendations appreciated. -B12, folate, TSH -Abd US: diffuse fatty infiltration of the liver and mild splenomegaly -If above w/u neg. will consider w/u for marrow pathology #HTN/HLD -Cont home meds: Coreg 12.5 BID, Hydralazine 25 BID, Isosorbide Dinitrate 10 BID -Crestor 20mg HS #CAD -s/p CABG + 3 stents. -Cont home meds: Coreg 12.5 BID, Crestor 20 #FEN -not on any standing fluids -recheck lytes in AM -diabetic/sodium-controlled diet #Prophylaxis DVT: SCD/TEDs, will hold on chemical ppx in setting of thrombocytopenia GI: PPI #Dispo -admit to tele Visit type - Emergency Visit Emergency Visit: Yes ED Registration Date: 12/10/19 Care time: The patient presented to the Emergency Department on the above date and was hospitalized for further evaluation of their emergent condition. - New Patient This patient is new to me today: Yes Date on this admission: 12/11/19 - Critical Care Critical Care patient: No - Medication Review Med list reviewed for High Risk Meds patients 65 and older: Yes ATTENDING PHYSICIAN STATEMENT I saw and evaluated the patient. I reviewed the resident's note and discussed the case with the resident. I agree with the resident's findings and plan as documented. SUBJECTIVE: OBJECTIVE: ASSESSMENT AND PLAN:
--- NOTE | 2019-12-11 14:30 | PN ---
<Rufus Paulson - Last Filed: 12/13/19 10:57> Physical Exam: SUBJECTIVE: Patient seen and examined. Pt. denies any acute complaints. 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 OBJECTIVE: Vital Signs Period Temp Pulse Resp BP Sys/Espinosa Pulse Ox Last 24 Hr 97.5 F-98.3 F 60-71 18-22 129-160/55-86 60-97 GENERAL: The patient is awake, alert, and fully oriented, in no acute distress. HEAD: Normal with no signs of trauma. EYES: Sclera anicteric, conjunctiva clear. ENT: Ears normal, nares patent, oropharynx clear without exudates, moist mucous membranes. NECK: Trachea midline, full range of motion, supple. LUNGS: Breath sounds equal, clear to auscultation bilaterally, no wheezes, no crackles, no accessory muscle use. HEART: Regular rate and rhythm, S1, S2 without murmur ABDOMEN: Soft, nontender, nondistended, normoactive bowel sounds, no guarding, no rebound EXTREMITIES: 2+ dorsal pedal pulses, warm, well-perfused, no edema. NEUROLOGICAL: No focal deficits. Normal speech, gait not observed. PSYCH: Normal mood, normal affect. SKIN: Warm, dry, normal turgor, lower extremities bandaged Laboratory Results - last 24 hr 12/10/19 12/10/19 12/10/19 16:58 18:35 22:25 WBC RBC Hgb Hct MCV MCH MCHC RDW Plt Count MPV Absolute Neuts (auto) Neutrophils % Lymphocytes % Monocytes % Eosinophils % Basophils % Nucleated RBC % Sodium Potassium Chloride Carbon Dioxide Anion Gap BUN Creatinine Est GFR (CKD-EPI)AfAm Est GFR (CKD-EPI)NonAf POC Glucometer 201 254 Random Glucose Hemoglobin A1c % Calcium Phosphorus Magnesium Total Bilirubin AST ALT Alkaline Phosphatase LD Total Troponin I < 0.02 Total Protein Albumin TSH Free T4 12/11/19 12/11/19 12/11/19 05:41 06:05 06:05 WBC 4.2 RBC 3.30 L Hgb 10.6 L Hct 32.8 L MCV 99.5 H MCH 32.1 MCHC 32.3 RDW 16.4 H Plt Count 76 L MPV 10.3 Absolute Neuts (auto) 2.5 Neutrophils % 60.5 Lymphocytes % 20.7 D Monocytes % 14.7 H Eosinophils % 2.8 Basophils % 1.3 Nucleated RBC % 0 Sodium 139 Potassium 4.0 Chloride 103 Carbon Dioxide 29 Anion Gap 7 L BUN 48.6 H Creatinine 2.8 H Est GFR (CKD-EPI)AfAm 25.34 Est GFR (CKD-EPI)NonAf 21.86 POC Glucometer 135 Random Glucose 146 H Hemoglobin A1c % Calcium 8.6 Phosphorus 3.6 Magnesium 2.4 Total Bilirubin 0.9 AST 17 ALT 15 Alkaline Phosphatase 65 LD Total 187 Troponin I Total Protein 7.2 Albumin 3.4 TSH 0.50 Free T4 1.24 H 12/11/19 12/11/19 06:05 11:11 WBC RBC Hgb Hct MCV MCH MCHC RDW Plt Count MPV Absolute Neuts (auto) Neutrophils % Lymphocytes % Monocytes % Eosinophils % Basophils % Nucleated RBC % Sodium Potassium Chloride Carbon Dioxide Anion Gap BUN Creatinine Est GFR (CKD-EPI)AfAm Est GFR (CKD-EPI)NonAf POC Glucometer 208 Random Glucose Hemoglobin A1c % 6.7 H Calcium Phosphorus Magnesium Total Bilirubin AST ALT Alkaline Phosphatase LD Total Troponin I Total Protein Albumin TSH Free T4 Active Medications Generic Name Dose Route Start Last Admin Trade Name Freq PRN Reason Stop Dose Admin Carvedilol 12.5 mg 12/10/19 14:44 12/11/19 09:36 Coreg - PO 12.5 mg BID ISH Administration Cyanocobalamin 100 mcg 12/11/19 10:00 12/11/19 11:43 Vitamin B12 - PO 100 mcg DAILY ISH Administration Ferrous Sulfate 325 mg 12/11/19 10:00 12/11/19 09:36 Feosol - PO 325 mg DAILY ISH Administration Furosemide 40 mg 12/11/19 06:00 12/11/19 13:47 Lasix Injection - IVPUSH 40 mg BIDLASIX ISH Administration Hydralazine HCl 25 mg 12/10/19 22:00 12/11/19 09:36 Apresoline - PO 25 mg BID ISH Administration Insulin Aspart 1 vial 12/10/19 16:30 12/11/19 11:42 Novolog Vial Sliding Scale - SQ 4 units ACHS ISH Administration Protocol Isosorbide Dinitrate 10 mg 12/11/19 10:00 12/11/19 09:36 Isordil - PO 10 mg BIDISORDIL ISH Administration Pantoprazole Sodium 40 mg 12/11/19 10:00 12/11/19 09:36 Protonix - PO 40 mg DAILY ISH Administration Rosuvastatin Calcium 20 mg 12/10/19 22:00 12/10/19 22:17 Crestor - PO 20 mg HS ISH Administration ASSESSMENT/PLAN: Pt. laura 69 y.o. M w/ PMHx. of DM2, HTN, CAD (s/p CABG and PCI, on Plavix), HFpEF, CKD and anemia presents for lower extremity swelling, lethargy and weeping from wounds in lower extremity. Pt. admitted for CHF exacerbation. We are called to assess for cytopenia #Cytopenia Anemia is borderline macrocytic and is likely related to chronic kidney disease. Has been stable while in the hospital. Abd US. shows fatty infiltration of the liver and mild splenomegaly, this is likely a contributing factor to baseline thrombocytopenia. Pt. is admitted for CHF exacerbation which can cause a decreased in platelets, cannot rule out drug induced thrombocytopenia TSH, T4, B12 and folate studies unremarkable Will consider for bone marrow biopsy if Pt. continues platelet decline CXR noted to be clear with sharp angles. Visit type - Emergency Visit Emergency Visit: Yes ED Registration Date: 12/10/19 Care time: The patient presented to the Emergency Department on the above date and was hospitalized for further evaluation of their emergent condition. - New Patient This patient is new to me today: No - Critical Care Critical Care patient: No - Discharge Referral Referred to [facility] Med [facility] No - Medication Review Med list reviewed for High Risk Meds patients 65 and older: Yes ATTENDING PHYSICIAN STATEMENT I saw and evaluated the patient. I reviewed the resident's note and discussed the case with the resident. I agree with the resident's findings and plan as documented. SUBJECTIVE: OBJECTIVE: ASSESSMENT AND PLAN: <Chepe Colon - Last Filed: 12/18/19 10:07> Physical Exam: SUBJECTIVE: Patient seen and examined OBJECTIVE: GENERAL: The patient is awake, alert, and fully oriented, in no acute distress. HEAD: Normal with no signs of trauma. EYES: PERRL, extraocular movements intact, sclera anicteric, conjunctiva clear. No ptosis. ENT: Ears normal, nares patent, oropharynx clear without exudates, moist mucous membranes. NECK: Trachea midline, full range of motion, supple. LUNGS: Breath sounds equal, clear to auscultation bilaterally, no wheezes, no crackles, no accessory muscle use. HEART: Regular rate and rhythm, S1, S2 without murmur, rub or gallop. ABDOMEN: Soft, nontender, nondistended, normoactive bowel sounds, no guarding, no rebound, no hepatosplenomegaly, no masses. EXTREMITIES: 2+ pulses, warm, well-perfused, no edema. NEUROLOGICAL: Cranial nerves II through XII grossly intact. Normal speech, gait not observed. PSYCH: Normal mood, normal affect. SKIN: Warm, dry, normal turgor, no rashes or lesions noted ASSESSMENT/PLAN: ATTENDING PHYSICIAN STATEMENT I saw and evaluated the patient. I reviewed the resident's note and discussed the case with the resident. I agree with the resident's findings and plan as documented. SUBJECTIVE: OBJECTIVE: ASSESSMENT AND PLAN:
--- NOTE | 2019-12-11 15:47 | CONSULT ---
- Consultation REQUESTING PROVIDER: CONSULT REQUEST: We have been asked to surgically evaluate this patient for Multiple leg wounds/ulcers PCP:Sherie García MD HISTORY OF PRESENT ILLNESS: 69M w/ pmhx of DM, HTN, CAD (s/p bypass surgery, 1996), CHF, CKD presents in the ED for worsening b/l LE swelling. He was sent by [facility] ([facility]) for further evaluation of his b/l LE swelling. States over the past 2 weeks, he started noticing his legs more swollen, R > L, and was told by his PCP to take an extra dose of PO Lasix 40 in the evening for a total of 5 days. Today was his 4th day of taking an extra Lasix 40, but he had not noticed any improvement in the swelling. Additionally, he reports the swelling has worsened to the point where he has to stop 30 times when he walks outside (baseline he stops 10 times), due to worsening pain and swelling in his R leg. Denies magaña/c, f/c, n/v, chest pain, sob, robles, abd pain, urinary/bowel symptoms. States he takes all his medications as prescribed. He does not currently see a program review director as his PCP manages all his conditions. ER course was notable for: (1) Afebrile, BP 166/72, 96 RA (2) IV Lasix 80 mg; CXR showed no infiltrate/failure (3) Duplex ordered Recent Travel: Denies PAST MEDICAL HISTORY: As per HPI FAMILY HISTORY: Father - [place], at age 54 Mother - DM PAST SURGICAL HISTORY: CABG (1996) R ACL/mensicus repair cardiac stents x3 R leg angio/atherectom/angioplasty hernia repair Social History: Smoking: Denies Alcohol: Denies Drugs: Denies Walks with cane Allergies NO Inhibitors Allergy (Unknown, Verified 12/10/19 09:33) lisinopril Adverse Reaction (Verified 12/10/19 09:33) Cough Home Medications (Reconciled with PCP) Medication Instructions Recorded Clopidogrel Bisulfate [Plavix] 75 mg PO DAILY #30 tablet 01/12/18 Omeprazole 40 mg PO DAILY 09/28/19 Carvedilol 12.5 mg PO Q12H 12/10/19 Cyanocobalamin [Vitamin B12 -] 1 tab PO DAILY 12/10/19 Ferrous Sulfate [Iron] 325 mg PO DAILY 12/10/19 Furosemide 40 mg PO BID 12/10/19 Hydralazine HCl 25 mg PO BID 12/10/19 Isosorbide Dinitrate [Isordil] 10 mg PO BID 12/10/19 Rosuvastatin [Crestor -] 20 mg PO HS 12/10/19 REVIEW OF SYSTEMS CONSTITUTIONAL: Absent: fever, chills, diaphoresis, generalized weakness, malaise, loss of appetite, weight change HEENT: Absent: rhinorrhea, nasal congestion, throat pain, throat swelling, difficulty swallowing, mouth swelling, ear pain, eye pain, visual changes CARDIOVASCULAR: peripheral edema Absent: chest pain, syncope, palpitations, irregular heart rate, lightheadednes s, RESPIRATORY: Absent: cough, shortness of breath, dyspnea with exertion, orthopnea, wheezing, stridor, hemoptysis GASTROINTESTINAL: Absent: abdominal pain, abdominal distension, nausea, vomiting, diarrhea, constipation, melena, hematochezia GENITOURINARY: Absent: dysuria, frequency, urgency, hesitancy, hematuria, flank pain, genital pain MUSCULOSKELETAL: Absent: myalgia, arthralgia, joint swelling, back pain, neck pain SKIN: Absent: rash, itching, pallor HEMATOLOGIC/IMMUNOLOGIC: Absent: easy bleeding, easy bruising, lymphadenopathy, frequent infections ENDOCRINE: Absent: unexplained weight gain, unexplained weight loss, heat intolerance, cold intolerance NEUROLOGIC: Absent: headache, focal weakness or paresthesias, dizziness, unsteady gait, seizure, mental status changes, bladder or bowel incontinence PSYCHIATRIC: Absent: anxiety, depression, suicidal or homicidal ideation, hallucinations. PHYSICAL EXAMINATION Vital Signs - 24 hr 12/10/19 12/10/19 12/10/19 09:28 10:40 10:56 Temperature 98.5 F Pulse Rate 66 Pulse Rate [ 83 Apical] Respiratory 20 26 H Rate Blood Pressure 176/77 H Blood Pressure 166/72 [Right Arm] O2 Sat by Pulse 98 96 96 Oximetry (%) GENERAL: Well-appearing, elderly male. NAD. AAOx3. HEENT: AT/NC. EOMI. MMM. NECK: Supple, no JVD. LUNGS: CTA B/L. No wheezes/rales noted. HEART: RRR. Normal S1, S2. NO murmurs noted. ABDOMEN: Obese, soft, nondistended. Mild +TTP MUSCULOSKELETAL: Moves all extremities. Limited RLE hip flexion. EXTREMITIES: BLE wrapped in dressing from base of toes to below the knee, unable to assess b/l LE ulcers, dressings c/d/i; L hallux amputation; stump clean dry well-healed. Visible swelling of RLE from knee to thigh, mild +TTP in R inner thigh. NEUROLOGICAL: Cranial nerves II-XII intact. Normal speech. Decreased sensation in R foot. PSYCHIATRIC: Cooperative. Good eye contact. Appropriate mood and affect. SKIN: Warm, dry, normal turgor, no rashes or lesions noted, normal capillary refill. CBCD WBC 3.7 K/mm3 (4.0-10.0) L 12/10/19 10:15 RBC 3.24 M/mm3 (4.00-5.60) L 12/10/19 10:15 Hgb 10.3 GM/dL (11.7-16.9) L 12/10/19 10:15 Hct 32.1 % (35.4-49) L 12/10/19 10:15 MCV 99.2 fl (80-96) H 12/10/19 10:15 MCHC 32.1 g/dl (32.0-35.9) 12/10/19 10:15 RDW 16.7 % (11.9-15.9) H 12/10/19 10:15 Plt Count 78 K/MM3 (134-434) L 12/10/19 10:15 MPV 10.0 fl (7.5-11.1) 12/10/19 10:15 CMP Sodium 139 mmol/L (136-145) 12/10/19 10:15 Potassium 4.1 mmol/L (3.5-5.1) 12/10/19 10:15 Chloride 104 mmol/L (98-107) 12/10/19 10:15 Carbon Dioxide 27 mmol/L (21-32) 12/10/19 10:15 Anion Gap 9 MMOL/L (8-16) 12/10/19 10:15 BUN 47.7 mg/dL (7-18) H 12/10/19 10:15 Creatinine 2.8 mg/dL (0.55-1.3) H 12/10/19 10:15 Calcium 8.8 mg/dL (8.5-10.1) 12/10/19 10:15 Total Bilirubin 1.1 mg/dL (0.2-1) H 12/10/19 10:15 AST 20 U/L (15-37) 12/10/19 10:15 ALT 15 U/L (13-61) 12/10/19 10:15 Alkaline Phosphatase 70 U/L (45-117) 12/10/19 10:15 Total Protein 7.1 g/dl (6.4-8.2) 12/10/19 10:15 Albumin 3.5 g/dl (3.4-5.0) 12/10/19 10:15 IMAGING: * CXR: no sign of infiltrate or failure * B/l LE duplex: No DVT in either leg ASSESSMENT/PLAN: 69M w/ pmhx of DM, HTN, CAD (s/p bypass surgery, 1996), CHF, CKD presents in the ED for worsening b/l LE swelling. PMHx: PSHx: Home Medications Medication Instructions Recorded Omeprazole 40 mg PO DAILY 09/28/19 Carvedilol 12.5 mg PO Q12H 12/10/19 Clopidogrel Bisulfate [Clopidogrel] 75 mg PO DAILY 12/10/19 Cyanocobalamin [Vitamin B12 -] 1 tab PO DAILY 12/10/19 Ferrous Sulfate [Iron] 325 mg PO DAILY 12/10/19 Furosemide 40 mg PO BID 12/10/19 Hydralazine HCl 25 mg PO BID 12/10/19 Isosorbide Dinitrate [Isordil] 10 mg PO BID 12/10/19 Rosuvastatin [Crestor -] 20 mg PO HS 12/10/19 Allergies Allergy/AdvReac Type Severity Reaction Status Date / Time NO Inhibitors Allergy Unknown Verified 12/10/19 09:33 lisinopril AdvReac Cough Verified 12/10/19 09:33 REVIEW OF SYSTEMS: CONSTITUTIONAL: Absent: fever, chills, diaphoresis, generalized weakness, malaise, loss of appetite, weight change CARDIOVASCULAR: Absent: chest pain, syncope, palpitations, irregular heart rate, lightheadedness, peripheral edema RESPIRATORY: Absent: cough, shortness of breath, dyspnea with exertion, wheezing, stridor, hemoptysis GASTROINTESTINAL: Absent: abdominal pain, abdominal distension, nausea, vomiting, diarrhea, constipation, melena, hematochezia GENITOURINARY: Absent: dysuria, frequency, urgency, hesitancy, hematuria, flank pain, genital pain MUSCULOSKELETAL: Absent: myalgia, arthralgia, joint swelling, back pain, neck pain SKIN: Absent: rash, itching, pallor HEMATOLOGIC/IMMUNOLOGIC: Absent: easy bleeding, easy bruising, lymphadenopathy NEUROLOGIC: Absent: headache, focal weakness, paresthesias, dizziness, unsteady gait, seizure, mental status changes, bladder or bowel incontinence PSYCHIATRIC: Absent: anxiety, depression, suicidal or homicidal ideation, hallucinations. PHYSICAL EXAM: GENERAL: Awake, alert, and fully oriented, in no acute distress. HEAD: Normal with no signs of trauma. EYES: PERRL, sclera anicteric, conjunctiva clear. NECK: Normal ROM, supple without lymphadenopathy, JVD, or masses. LUNGS: Clear to auscultation bilat anteriorly. No wheezes, and no crackles. No accessory muscle use. HEART: Regular rate and rhythm. No murmurs ABDOMEN: Soft, nontender, not distended, normoactive bowel sounds, no guarding, no rebound, no masses. No organomegaly. MUSCULOSKELETAL: Normal ROM at all joints. No bony deformities or tenderness. No CVA tenderness. UPPER EXTREMITIES: 2+ pulses, warm, well-perfused. No cyanosis. Cap refill <2 seconds. No peripheral edema. LOWER EXTREMITIES: 2+ pulses, warm, well-perfused. No calf tenderness. No peripheral edema. NEUROLOGICAL: Normal speech, gait not observed. PSYCH: Cooperative. Good eye contact. Appropriate mood and affect. SKIN: Warm, dry, normal turgor, no rashes or lesions noted. Vital Signs Temperature 97.7 F 12/11/19 14:00 Pulse Rate 62 12/11/19 14:00 Respiratory Rate 20 12/11/19 10:00 Blood Pressure 131/73 12/11/19 14:00 O2 Sat by Pulse Oximetry (%) 97 12/11/19 09:00 Lab Results WBC 4.2 K/mm3 (4.0-10.0) 12/11/19 06:05 RBC 3.30 M/mm3 (4.00-5.60) L 12/11/19 06:05 Hgb 10.6 GM/dL (11.7-16.9) L 12/11/19 06:05 Hct 32.8 % (35.4-49) L 12/11/19 06:05 MCV 99.5 fl (80-96) H 12/11/19 06:05 MCHC 32.3 g/dl (32.0-35.9) 12/11/19 06:05 RDW 16.4 % (11.9-15.9) H 12/11/19 06:05 Plt Count 76 K/MM3 (134-434) L 12/11/19 06:05 INR 1.31 (0.83-1.09) H 12/10/19 10:15 Sodium 139 mmol/L (136-145) 12/11/19 06:05 Potassium 4.0 mmol/L (3.5-5.1) 12/11/19 06:05 Chloride 103 mmol/L (98-107) 12/11/19 06:05 Carbon Dioxide 29 mmol/L (21-32) 12/11/19 06:05 Anion Gap 7 MMOL/L (8-16) L 12/11/19 06:05 BUN 48.6 mg/dL (7-18) H 12/11/19 06:05 Creatinine 2.8 mg/dL (0.55-1.3) H 12/11/19 06:05 Random Glucose 146 mg/dL (74-106) H 12/11/19 06:05 Calcium 8.6 mg/dL (8.5-10.1) 12/11/19 06:05
--- NOTE | 2019-12-11 16:37 | PN ---
Teaching Attending Note Name of Resident: Rufus Paulson ATTENDING PHYSICIAN STATEMENT I saw and evaluated the patient. I reviewed the resident's note and discussed the case with the resident. I agree with the resident's findings and plan as documented. SUBJECTIVE: Doing well. Denies SOB, bleeding. ASSESSMENT AND PLAN: 69 y/o gentleman w/ a history of DM, HTN, CAD s/p bypass 1996 (Plavix), CHF, CKD, anemia who presents for evaluation of 2 weeks of becoming easily fatigued with activity and worsening BLE swelling and worsening weeping from his lower legs. ECG w/ RBBB; 1st degree AV block, CO 408; no axis deviation; QTc 507 (prolonged) CXR read w/o vascular congestion, PNA, or effusion Pancytopenia/macrocytic anemia ? consumption related to CHF r/o occult infxn --- ? wound infxn. check cultures r/o B12/folate deficiency. check TSH check U/S liver/spleen Peripheral blood flow cytometry/cytogenetics. May consider BMBx if sustained cytopenias
[2019-12-11] MEDS: ROSUVASTATIN CA 20 MG TABLET (FP) PO SCH (21:38)
[2019-12-12] MEDS ORDERED: ACETAMINOPHEN 325 MG TABLET (FP) PO ONE (02:20)
[2019-12-12] MEDS ORDERED: ACETAMINOPHEN 325 MG TABLET (FP) ONE (02:23)
[2019-12-12] MEDS: FUROSEMIDE 40 MG/4 ML INJECTABLE VIAL IVPUSH SCH ×2 (06:30→13:37)
[2019-12-12] MEDS: INSULIN SLIDING SCALE (NOVOLOG) 1 VIAL SQ SCH ×4 (06:31→21:15)
[2019-12-12 07:06] LABS: BASO % 1.1 % (0-2.0); EOS % 4.4 % (0-4.5); HEMATOCRIT 31.6 % (35.4-49); HEMOGLOBIN 10.4 GM/dL (11.7-16.9); LYMPH % 17.8 % (8-40); MCH 32.4 pg (25.7-33.7); MCHC 32.7 g/dl (32.0-35.9); MEAN PLT VOLUME 10.1 fl (7.5-11.1); MONO % 14.3 % (3.8-10.2); NEUT % 62.4 % (42.8-82.8); PLATELET COUNT 73 K/MM3 (134-434); RDW 16.1 % (11.9-15.9); WHITE BLOOD COUNT 4.2 K/mm3 (4.0-10.0)
[2019-12-12 07:41] LABS: ALBUMIN 3.5 g/dl (3.4-5.0); BILIRUBIN,TOTAL 0.8 mg/dL (0.2-1); BLOOD UREA NITROGEN 50.8 mg/dL (7-18); CREATININE 2.5 mg/dL (0.55-1.3); MAGNESIUM 2.5 mg/dL (1.8-2.4); PHOSPHOROUS 3.6 mg/dL (2.5-4.9); POTASSIUM 3.6 mmol/L (3.5-5.1); TOT PROT 7.1 g/dl (6.4-8.2)
[2019-12-12] MEDS ORDERED: PT OWN MED DRAWER 7, Y5N ONE (09:32)
[2019-12-12] MEDS: PANTOPRAZOLE 40 MG TABLET PO SCH (10:01)
[2019-12-12] MEDS: CYANOCOBALAMIN (VITAMIN B-12) 100 MCG TABLET PO SCH (10:01)
[2019-12-12] MEDS: hydrALAZINE HCL 25 MG TABLET (FP) PO SCH ×2 (10:01→21:07)
[2019-12-12] MEDS: ISOSORBIDE DINITRATE 10 MG TABLET (FP) PO SCH ×2 (10:01→18:01)
[2019-12-12] MEDS: FERROUS SO4 325 MG TABLET (FP) PO SCH (10:01)
[2019-12-12] MEDS: CARVEDILOL 12.5 MG TABLET (FP) PO SCH ×2 (10:01→21:07)
--- NOTE | 2019-12-12 11:42 | CONSULT ---
Consult Consult Specialty:: Nephrology Reason for Consultation:: CKD - History of Present Illness Chief Complaint: edema History of Present Illness: Pt is a 69 year old male with pmhx of dm, htn, cad, chf, ckd who presents with lower ext edema. I was called to evaluate him for elevated talent management specialist. He says that he has ckd for many years and that it has been attributed to the DM. He has never had a kidney biopsy. He denies nsaid use. He denies hematuria or dysuria. He complains of worsening lower ext edema. He denies scrotal edema. He denies shortness of breath. He was also found to be pancytopenic. - History Source History Provided By: Patient - Past Medical History Cardio/Vascular: Yes: HTN, Hyperlipdemia Renal/: Yes: Renal Inusuff - Alcohol/Substance Use Hx Alcohol Use: No - Smoking History Smoking history: Never smoked Have you smoked in the past 12 months: No If you are a former smoker, when did you quit?: 12yrs old stopped Home Medications - Allergies Allergies/Adverse Reactions: Allergies Allergy/AdvReac Type Severity Reaction Status Date / Time NO Inhibitors Allergy Unknown Verified 12/10/19 09:33 lisinopril AdvReac Cough Verified 12/10/19 09:33 - Home Medications Home Medications: Ambulatory Orders Omeprazole 40 mg PO DAILY 09/28/19 Carvedilol 12.5 mg PO Q12H 12/10/19 Clopidogrel Bisulfate [Clopidogrel] 75 mg PO DAILY 12/10/19 Cyanocobalamin [Vitamin B12 -] 1 tab PO DAILY 12/10/19 Ferrous Sulfate [Iron] 325 mg PO DAILY 12/10/19 Furosemide 40 mg PO BID 12/10/19 Hydralazine HCl 25 mg PO BID 12/10/19 Isosorbide Dinitrate [Isordil] 10 mg PO BID 12/10/19 Rosuvastatin [Crestor -] 20 mg PO HS 12/10/19 Family Medical History Family History: Denies Review of Systems - Review of Systems Constitutional: reports: Malaise Eyes: reports: No Symptoms HENT: reports: No Symptoms Neck: reports: No Symptoms Cardiovascular: reports: Edema, Shortness of Breath Respiratory: reports: SOB on Exertion Gastrointestinal: reports: No Symptoms Genitourinary: reports: No Symptoms Musculoskeletal: reports: No Symptoms Integumentary: reports: Lesions Neurological: reports: No Symptoms Endocrine: reports: No Symptoms Hematology/Lymphatic: reports: No Symptoms Psychiatric: reports: No Symptoms Physical Exam Vital Signs: Vital Signs Temperature 97.5 F L 12/12/19 09:59 Pulse Rate 63 12/12/19 09:59 Respiratory Rate 18 12/12/19 09:59 Blood Pressure 141/64 12/12/19 09:59 O2 Sat by Pulse Oximetry (%) 96 12/12/19 09:59 Constitutional: Yes: Calm Eyes: Yes: Conjunctiva Clear HENT: Yes: Atraumatic Neck: Yes: Supple Cardiovascular: Yes: S1, S2 Gastrointestinal: Yes: Soft Renal/: Yes: WNL Musculoskeletal: Yes: WNL Edema: Yes Edema: LLE: 2+, RLE: 2+ Neurological: Yes: Oriented Psychiatric: Yes: Oriented Labs: CBC, BMP 12/12/19 05:50 12/12/19 05:50 Laboratory Tests 01/05/18 11/01/19 12/10/19 10:24 13:58 10:00 Hgb Plt Count Creatinine 2.5 H 2.3 H Hemoglobin A1c % Calcium Urine Protein 3+ H COVID-19 (JACKELYN) 12/10/19 12/10/19 12/10/19 10:15 10:15 10:45 Hgb Plt Count 78 L Creatinine 2.8 H Hemoglobin A1c % Calcium Urine Protein COVID-19 (JACKELYN) Not detected 12/11/19 12/11/19 12/11/19 06:05 06:05 06:05 Hgb Plt Count 76 L Creatinine 2.8 H Hemoglobin A1c % 6.7 H Calcium Urine Protein COVID-19 (JACKELYN) 12/12/19 12/12/19 05:50 05:50 Hgb 10.4 L Plt Count 73 L Creatinine 2.5 H Hemoglobin A1c % Calcium 9.0 Urine Protein COVID-19 (JACKELYN) Imaging - Results Chest X-ray: Report Reviewed Ultrasound: Report Reviewed Assessment/Plan Current Medications Generic Name Dose Route Start Last Admin Trade Name Freq PRN Reason Stop Dose Admin Carvedilol 12.5 mg 12/10/19 14:44 12/12/19 10:01 Coreg - PO 12.5 mg BID ISH Administration Cyanocobalamin 100 mcg 12/11/19 10:00 12/12/19 10:01 Vitamin B12 - PO 100 mcg DAILY ISH Administration Ferrous Sulfate 325 mg 12/11/19 10:00 12/12/19 10:01 Feosol - PO 325 mg DAILY ISH Administration Furosemide 40 mg 12/11/19 06:00 12/12/19 06:30 Lasix Injection - IVPUSH 40 mg BIDLASIX ISH Administration Hydralazine HCl 25 mg 12/10/19 22:00 12/12/19 10:01 Apresoline - PO 25 mg BID ISH Administration Insulin Aspart 1 vial 12/10/19 16:30 12/12/19 06:31 Novolog Vial Sliding Scale - SQ 2 units ACHS ISH Administration Protocol Isosorbide Dinitrate 10 mg 12/11/19 10:00 12/12/19 10:01 Isordil - PO 10 mg BIDISORDIL ISH Administration Pantoprazole Sodium 40 mg 12/11/19 10:00 12/12/19 10:01 Protonix - PO 40 mg DAILY ISH Administration Rosuvastatin Calcium 20 mg 12/10/19 22:00 12/11/19 21:38 Crestor - PO 20 mg HS ISH Administration Impression 1. CKD 2. volume overload 3. hld 4. htn 5. dm 6. proteinuria 7. pancytopenia 8. various skin lesions, looke like scabs, will observe Plan - renal function is stable - check protein to talent management specialist ratio to quantify proteinuria - repeat spep - check echo - possible bone marrow biopsy - pt did see a vehicle operator, Dr Thomas in the past, put a page out to see what renal workup was done - will follow - cont lasix - avoid nsaids
--- NOTE | 2019-12-12 11:46 | PN ---
Teaching Attending Note Name of Resident: Maria C Moncada ATTENDING PHYSICIAN STATEMENT I saw and evaluated the patient. I reviewed the resident's note and discussed the case with the resident. I agree with the resident's findings and plan as documented. SUBJECTIVE: pt seen and examined at bedside, sitting on chair, denies CP, dyspnea OBJECTIVE: Last Vital Signs Temp Pulse Resp BP Pulse Ox 97.5 F L 63 18 141/64 96 12/12/19 09:59 12/12/19 09:59 12/12/19 09:59 12/12/19 09:59 12/12/19 09:59 GENERAL: Awake, alert, and fully oriented, in no acute distress. HEENT: neck supple, obese unable to assess JVD LUNGS: clear to auscultation HEART: Regular rate and rhythm, normal S1 and S2 ABDOMEN: obese, Soft, nontender, not distended MUSCULOSKELETAL: both legs wrapped in surgical dressing, pt wanted his surgeon to change the dressing if needed UPPER EXTREMITIES: 2+ pulses, warm, well-perfused. No cyanosis. No clubbing. No peripheral edema. LOWER EXTREMITIES: 2+ pulses, warm, well-perfused. No calf tenderness. Edema extending to knees +3, slight improvement compare to yesterday. [id number] more obvious on medial aspect of both thighs with mild tenderness to palpation NEUROLOGICAL: Cranial nerves II-XII intact. Normal speech. Skin: scattered open blisters on upper extremities bilaterally WBC 4.2 K/mm3 (4.0-10.0) 12/12/19 05:50 RBC 3.20 M/mm3 (4.00-5.60) L 12/12/19 05:50 Hgb 10.4 GM/dL (11.7-16.9) L 12/12/19 05:50 Hct 31.6 % (35.4-49) L 12/12/19 05:50 MCV 99.0 fl (80-96) H 12/12/19 05:50 MCHC 32.7 g/dl (32.0-35.9) 12/12/19 05:50 RDW 16.1 % (11.9-15.9) H 12/12/19 05:50 Plt Count 73 K/MM3 (134-434) L 12/12/19 05:50 MPV 10.1 fl (7.5-11.1) 12/12/19 05:50 CMP Sodium 138 mmol/L (136-145) 12/12/19 05:50 Potassium 3.6 mmol/L (3.5-5.1) 12/12/19 05:50 Chloride 100 mmol/L (98-107) 12/12/19 05:50 Carbon Dioxide 28 mmol/L (21-32) 12/12/19 05:50 Anion Gap 9 MMOL/L (8-16) 12/12/19 05:50 BUN 50.8 mg/dL (7-18) H 12/12/19 05:50 Creatinine 2.5 mg/dL (0.55-1.3) H 12/12/19 05:50 Calcium 9.0 mg/dL (8.5-10.1) 12/12/19 05:50 Total Bilirubin 0.8 mg/dL (0.2-1) 12/12/19 05:50 AST 16 U/L (15-37) 12/12/19 05:50 ALT 15 U/L (13-61) 12/12/19 05:50 Alkaline Phosphatase 68 U/L (45-117) 12/12/19 05:50 Total Protein 7.1 g/dl (6.4-8.2) 12/12/19 05:50 Albumin 3.5 g/dl (3.4-5.0) 12/12/19 05:50 ASSESSMENT AND PLAN: 69M w/ a history of DM, HTN, CAD s/p bypass 1996 (Plavix), CHF, CKD, anemia who presents for evaluation of 2 weeks of becoming easily fatigued with activity and worsening BLE swelling and worsening weeping from his lower legs. not fully responding to PO furosemide #Acute on chronic HFpEF ECHO reviewed, pt have HFpEF and Pul HTN IV furosemide, until euvolemic I/O's, Daily weights CXR showed no acute process c/w home meds #DM; #LESTER on CKD; Cr 2.5. F Avoid nephrotoxic agents. renal dose of medications Ptnuria +3, in the setting of his general conditions would consult nephrology SPEP ptn/creat ratio #Macrocytic Anemia; and thrombocytopenia B12, TSH done, not clinically significant US showed splenomegaly trend H&H MDS? in setting of thrombocytopenia, anemia will need BM biopsy #HTN/HLD; Cont home meds: Coreg 12.5 BID, Hydralazine 25 BID, Crestor 20 #CAD (s/p CABG + 3 stents). Cont home meds: Coreg 12.5 BID, Crestor 20 #Prophylaxis DVT: SCD/TEDs, will hold on chemical ppx in setting of thrombocytopenia GI: PPI
[2019-12-12] MEDS ORDERED: ACETAMINOPHEN 325 MG TABLET (FP) PO PRN (14:20)
--- NOTE | 2019-12-12 15:33 | PN ---
Physical Exam: SUBJECTIVE: Patient seen and examined OBJECTIVE: Vital Signs Temperature 97.9 F 12/12/19 13:35 Pulse Rate 71 12/12/19 13:35 Respiratory Rate 18 12/12/19 13:35 Blood Pressure 138/72 12/12/19 13:35 O2 Sat by Pulse Oximetry (%) 99 12/12/19 13:35 GENERAL: The patient is awake, alert, and fully oriented, in no acute distress. NECK: full range of motion, supple. LUNGS: Fine bibasilar crackles HEART: Regular rate and rhythm, S1, S2 ABDOMEN: Soft, nontender, nondistended, normoactive bowel sounds EXTREMITIES: 2+ pulses, warm, well-perfused, B/L LE wrapped in bandage NEUROLOGICAL: Cranial nerves II through XII grossly intact. Normal speech PSYCH: Normal mood, normal affect. SKIN: Warm, dry, normal turgor Laboratory Results - last 24 hr 12/10/19 12/11/19 12/11/19 10:45 06:05 16:50 WBC RBC Hgb Hct MCV MCH MCHC RDW Plt Count MPV Absolute Neuts (auto) Neutrophils % Lymphocytes % Monocytes % Eosinophils % Basophils % Nucleated RBC % Sodium Potassium Chloride Carbon Dioxide Anion Gap BUN Creatinine Est GFR (CKD-EPI)AfAm Est GFR (CKD-EPI)NonAf POC Glucometer 246 Random Glucose Calcium Phosphorus Magnesium Total Bilirubin AST ALT Alkaline Phosphatase Total Protein Albumin Vitamin B12 1516 H Serum Folate 12 Ur Random Creatinine U Random Total Protein Protein/Creatinin Ratio COVID-19 (JACKELYN) Not detected 12/11/19 12/12/19 12/12/19 21:39 05:50 05:50 WBC 4.2 RBC 3.20 L Hgb 10.4 L Hct 31.6 L MCV 99.0 H MCH 32.4 MCHC 32.7 RDW 16.1 H Plt Count 73 L MPV 10.1 Absolute Neuts (auto) 2.6 Neutrophils % 62.4 Lymphocytes % 17.8 Monocytes % 14.3 H Eosinophils % 4.4 Basophils % 1.1 Nucleated RBC % 0 Sodium 138 Potassium 3.6 Chloride 100 Carbon Dioxide 28 Anion Gap 9 BUN 50.8 H Creatinine 2.5 H Est GFR (CKD-EPI)AfAm 29.06 Est GFR (CKD-EPI)NonAf 25.07 POC Glucometer 228 Random Glucose 172 H Calcium 9.0 Phosphorus 3.6 Magnesium 2.5 H Total Bilirubin 0.8 AST 16 ALT 15 Alkaline Phosphatase 68 Total Protein 7.1 Albumin 3.5 Vitamin B12 1599 H Serum Folate Ur Random Creatinine U Random Total Protein Protein/Creatinin Ratio COVID-19 (JACKELYN) 12/12/19 12/12/19 12/12/19 05:57 11:53 12:00 WBC RBC Hgb Hct MCV MCH MCHC RDW Plt Count MPV Absolute Neuts (auto) Neutrophils % Lymphocytes % Monocytes % Eosinophils % Basophils % Nucleated RBC % Sodium Potassium Chloride Carbon Dioxide Anion Gap BUN Creatinine Est GFR (CKD-EPI)AfAm Est GFR (CKD-EPI)NonAf POC Glucometer 156 235 Random Glucose Calcium Phosphorus Magnesium Total Bilirubin AST ALT Alkaline Phosphatase Total Protein Albumin Vitamin B12 Serum Folate Ur Random Creatinine 16.0 L U Random Total Protein 60.6 H Protein/Creatinin Ratio 3.8 COVID-19 (JACKELYN) Active Medications Generic Name Dose Route Start Last Admin Trade Name Freq PRN Reason Stop Dose Admin Acetaminophen 650 mg 12/12/19 14:20 Tylenol - PO Q6H PRN PAIN LEVEL 1-5 Carvedilol 12.5 mg 12/10/19 14:44 12/12/19 10:01 Coreg - PO 12.5 mg BID ISH Administration Cyanocobalamin 100 mcg 12/11/19 10:00 12/12/19 10:01 Vitamin B12 - PO 100 mcg DAILY ISH Administration Ferrous Sulfate 325 mg 12/11/19 10:00 12/12/19 10:01 Feosol - PO 325 mg DAILY ISH Administration Furosemide 40 mg 12/11/19 06:00 12/12/19 13:37 Lasix Injection - IVPUSH 40 mg BIDLASIX ISH Administration Hydralazine HCl 25 mg 12/10/19 22:00 12/12/19 10:01 Apresoline - PO 25 mg BID ISH Administration Insulin Aspart 1 vial 12/10/19 16:30 12/12/19 11:54 Novolog Vial Sliding Scale - SQ 4 units ACHS ISH Administration Protocol Isosorbide Dinitrate 10 mg 12/11/19 10:00 12/12/19 10:01 Isordil - PO 10 mg BIDISORDIL ISH Administration Pantoprazole Sodium 40 mg 12/11/19 10:00 12/12/19 10:01 Protonix - PO 40 mg DAILY ISH Administration Rosuvastatin Calcium 20 mg 12/10/19 22:00 12/11/19 21:38 Crestor - PO 20 mg HS ISH Administration ASSESSMENT/PLAN: Patient is a 69M w/ pmhx of DM, HTN, CAD (s/p bypass surgery, 1996), CHF, CKD presents in the ED for worsening bilateral LE swelling. #Acute on Chronic CHF -Echo (12/09) - LV grossly normal size, mild LVH, normal systolic function EF 55- 60%, diastolic dysfunction grade II. Calcified aortic valve, mildly restricted. Mild TR with mild pulmonary HTN -will continue with IV Lasix 40 mg BID -Trops neg x2 -CXR showed no acute process -I/O's, Daily weights -LE duplex showed no evid of DVT in b/l LE -Physical therapy -Cont Coreg 12.5mg bid #PVD w/ Bilateral LE ulcers -s/p angioplasty/stent. -Cont routine wound care. Vascular surgery consulted. -Will hold Plavix in setting of thrombocytopenia. #DM -A1c ~6.7 -BGM/ISS ACHS. #CKD -Cr 2.5. (currently at baseline) -Follows with nephro as outpatient. -Avoid nephrotoxic agents. -protein to building cleaning supervisor ratio to quantify proteinuria -spep -cont lasix -Nephrology (Dr. Hearn) consulted. REcommendations appreciated. #Macrocytic Anemia -Cont home meds: Ferrous Sulfate 325, Vitamin B12 100 mcg -Folate and Vit b12 levels elevated #Thrombocytopenia -Hold all anti-platelets for now. -Will cont to trend CBC -Heme-onc (Dr. Cintron) consulted. REcommendations appreciated. -B12, folate, TSH -Abd US: diffuse fatty infiltration of the liver and mild splenomegaly -Peripheral blood flow cytometry/cytogenetics done -may consider bone marrow bx #HTN/HLD -Cont home meds: Coreg 12.5 BID, Hydralazine 25 BID, Isosorbide Dinitrate 10 BID -Crestor 20mg HS #CAD -s/p CABG + 3 stents. -Cont home meds: Coreg 12.5 BID, Crestor 20 #FEN -not on any standing fluids -routine bmp monitoring -diabetic/sodium-controlled diet #Prophylaxis -DVT: SCD/TEDs, will hold on chemical ppx in setting of thrombocytopenia -GI: PPI #Dispo -admit to tele Visit type - Emergency Visit Emergency Visit: Yes ED Registration Date: 12/10/19 Care time: The patient presented to the Emergency Department on the above date and was hospitalized for further evaluation of their emergent condition. - New Patient This patient is new to me today: No - Critical Care Critical Care patient: No - Medication Review Med list reviewed for High Risk Meds patients 65 and older: Yes ATTENDING PHYSICIAN STATEMENT I saw and evaluated the patient. I reviewed the resident's note and discussed the case with the resident. I agree with the resident's findings and plan as documented. SUBJECTIVE: OBJECTIVE: ASSESSMENT AND PLAN:
[2019-12-12] MEDS: ROSUVASTATIN CA 20 MG TABLET (FP) PO SCH (21:07)
[2019-12-13] MEDS: FUROSEMIDE 40 MG/4 ML INJECTABLE VIAL IVPUSH SCH ×2 (06:50→13:33)
[2019-12-13] MEDS: INSULIN SLIDING SCALE (NOVOLOG) 1 VIAL SQ SCH ×4 (06:51→22:12)
[2019-12-13 07:43] LABS: BASO % 1.4 % (0-2.0); EOS % 3.6 % (0-4.5); HEMATOCRIT 33.8 % (35.4-49); HEMOGLOBIN 10.9 GM/dL (11.7-16.9); LYMPH % 17.5 % (8-40); MCH 32.1 pg (25.7-33.7); MCHC 32.4 g/dl (32.0-35.9); MEAN CELL VOLUME 99.3 fl (80-96); MEAN PLT VOLUME 10.7 fl (7.5-11.1); MONO % 13.3 % (3.8-10.2); NEUT % 64.2 % (42.8-82.8); PLATELET COUNT 92 K/MM3 (134-434); RDW 16.1 % (11.9-15.9); WHITE BLOOD COUNT 4.4 K/mm3 (4.0-10.0)
[2019-12-13 08:11] LABS: ALBUMIN 3.7 g/dl (3.4-5.0); BLOOD UREA NITROGEN 50.1 mg/dL (7-18); CALCIUM 9.4 mg/dL (8.5-10.1); CREATININE 2.5 mg/dL (0.55-1.3); MAGNESIUM 2.4 mg/dL (1.8-2.4); PHOSPHOROUS 3.5 mg/dL (2.5-4.9); POTASSIUM 3.9 mmol/L (3.5-5.1); TOT PROT 7.5 g/dl (6.4-8.2)
[2019-12-13] MEDS ORDERED: PT OWN MED DRAWER 7, Y5N ONE (09:22)
[2019-12-13] MEDS: CARVEDILOL 12.5 MG TABLET (FP) PO SCH ×2 (09:47→21:15)
[2019-12-13] MEDS: CYANOCOBALAMIN (VITAMIN B-12) 100 MCG TABLET PO SCH (09:47)
[2019-12-13] MEDS: ISOSORBIDE DINITRATE 10 MG TABLET (FP) PO SCH ×2 (09:48→21:15)
[2019-12-13] MEDS: FERROUS SO4 325 MG TABLET (FP) PO SCH (09:48)
[2019-12-13] MEDS: PANTOPRAZOLE 40 MG TABLET PO SCH (09:48)
[2019-12-13] MEDS: hydrALAZINE HCL 25 MG TABLET (FP) PO SCH ×2 (09:48→21:15)
--- NOTE | 2019-12-13 10:57 | PN ---
Physical Exam: SUBJECTIVE: Patient seen and examined. Pt. denies any acute complaints. Pt. is happy that his legs have been re-bandaged. Pt. tolderating PO and denies any bleeding. OBJECTIVE: Vital Signs Period Temp Pulse Resp BP Sys/Espinosa Pulse Ox Last 24 Hr 97.8 F-98.2 F 58-71 18-20 102-156/49-73 97-99 GENERAL: The patient is awake, alert, and fully oriented, in no acute distress. HEAD: Normal with no signs of trauma. EYES: Sclera anicteric, conjunctiva clear. ENT: Ears normal, nares patent, oropharynx clear without exudates, moist mucous membranes. NECK: Trachea midline, full range of motion, supple. LUNGS: Breath sounds equal, clear to auscultation bilaterally, no wheezes, no crackles, no accessory muscle use. HEART: Regular rate and rhythm, S1, S2 without murmur ABDOMEN: Soft, nontender, nondistended, normoactive bowel sounds, no guarding, no rebound EXTREMITIES: 2+ dorsal pedal pulses, warm, well-perfused, no edema. NEUROLOGICAL: No focal deficits. Normal speech, gait not observed. PSYCH: Normal mood, normal affect. SKIN: Warm, dry, normal turgor, lower extremities bandaged Laboratory Results - last 24 hr 12/11/19 12/12/19 12/12/19 06:05 11:53 12:00 WBC RBC Hgb Hct 32.6 L MCV MCH MCHC RDW Plt Count MPV Absolute Neuts (auto) Neutrophils % Lymphocytes % Monocytes % Eosinophils % Basophils % Nucleated RBC % Sodium Potassium Chloride Carbon Dioxide Anion Gap BUN Creatinine Est GFR (CKD-EPI)AfAm Est GFR (CKD-EPI)NonAf POC Glucometer 235 Random Glucose Calcium Phosphorus Magnesium Total Bilirubin AST ALT Alkaline Phosphatase Total Protein Albumin Folate 1804 Folate Hemolysate 588.0 Ur Random Creatinine 16.0 L U Random Total Protein 60.6 H Protein/Creatinin Ratio 3.8 12/12/19 12/12/19 12/13/19 17:29 21:09 06:00 WBC 4.4 RBC 3.40 L Hgb 10.9 L Hct 33.8 L MCV 99.3 H MCH 32.1 MCHC 32.4 RDW 16.1 H Plt Count 92 L D MPV 10.7 Absolute Neuts (auto) 2.8 Neutrophils % 64.2 Lymphocytes % 17.5 Monocytes % 13.3 H Eosinophils % 3.6 Basophils % 1.4 Nucleated RBC % 0 Sodium Potassium Chloride Carbon Dioxide Anion Gap BUN Creatinine Est GFR (CKD-EPI)AfAm Est GFR (CKD-EPI)NonAf POC Glucometer 264 210 Random Glucose Calcium Phosphorus Magnesium Total Bilirubin AST ALT Alkaline Phosphatase Total Protein Albumin Folate Folate Hemolysate Ur Random Creatinine U Random Total Protein Protein/Creatinin Ratio 12/13/19 12/13/19 06:00 06:15 WBC RBC Hgb Hct MCV MCH MCHC RDW Plt Count MPV Absolute Neuts (auto) Neutrophils % Lymphocytes % Monocytes % Eosinophils % Basophils % Nucleated RBC % Sodium 136 Potassium 3.9 Chloride 99 Carbon Dioxide 29 Anion Gap 9 BUN 50.1 H Creatinine 2.5 H Est GFR (CKD-EPI)AfAm 29.06 Est GFR (CKD-EPI)NonAf 25.07 POC Glucometer 280 Random Glucose 263 H Calcium 9.4 Phosphorus 3.5 Magnesium 2.4 Total Bilirubin 1.0 AST 16 ALT 15 Alkaline Phosphatase 73 Total Protein 7.5 Albumin 3.7 Folate Folate Hemolysate Ur Random Creatinine U Random Total Protein Protein/Creatinin Ratio Active Medications Generic Name Dose Route Start Last Admin Trade Name Freq PRN Reason Stop Dose Admin Acetaminophen 650 mg 12/12/19 14:20 12/12/19 21:15 Tylenol - PO 650 mg Q6H PRN Administration PAIN LEVEL 1-5 Carvedilol 12.5 mg 12/10/19 14:44 12/13/19 09:47 Coreg - PO 12.5 mg BID ISH Administration Cyanocobalamin 100 mcg 12/11/19 10:00 12/13/19 09:47 Vitamin B12 - PO 100 mcg DAILY ISH Administration Ferrous Sulfate 325 mg 12/11/19 10:00 12/13/19 09:48 Feosol - PO 325 mg DAILY ISH Administration Furosemide 40 mg 12/11/19 06:00 12/13/19 06:50 Lasix Injection - IVPUSH 40 mg BIDLASIX ISH Administration Hydralazine HCl 25 mg 12/10/19 22:00 12/13/19 09:48 Apresoline - PO 25 mg BID ISH Administration Insulin Aspart 1 vial 12/10/19 16:30 12/13/19 06:51 Novolog Vial Sliding Scale - SQ 6 units ACHS ISH Administration Protocol Isosorbide Dinitrate 10 mg 12/11/19 10:00 12/13/19 09:48 Isordil - PO 10 mg BIDISORDIL ISH Administration Pantoprazole Sodium 40 mg 12/11/19 10:00 12/13/19 09:48 Protonix - PO 40 mg DAILY ISH Administration Rosuvastatin Calcium 20 mg 12/10/19 22:00 12/12/19 21:07 Crestor - PO 20 mg HS ISH Administration ASSESSMENT/PLAN: Pt. laura 69 y.o. M w/ PMHx. of DM2, HTN, CAD (s/p CABG and PCI, on Plavix), HFpEF, CKD and anemia presents for lower extremity swelling, lethargy and w eeping from wounds in lower extremity. Pt. admitted for CHF exacerbation. We are called to assess for cytopenia #Cytopenia Anemia is borderline macrocytic and is likely related to chronic kidney disease. Has been stable while in the hospital. Abd US. shows fatty infiltration of the liver and mild splenomegaly, this is likely a contributing factor to baseline thrombocytopenia. Pt. is admitted for CHF exacerbation which can cause a decreased in platelets, cannot rule out drug induced thrombocytopenia. TSH, T4, B12 and folate studies unremarkable Will consider for bone marrow biopsy if Pt. continues platelet decline Platelets have increased to 92K CXR noted to be clear with sharp angles. Visit type - Emergency Visit Emergency Visit: Yes ED Registration Date: 12/10/19 Care time: The patient presented to the Emergency Department on the above date and was hospitalized for further evaluation of their emergent condition. - New Patient This patient is new to me today: No - Critical Care Critical Care patient: No - Discharge Referral Referred to [facility] Med [facility].C[facility] No - Medication Review Med list reviewed for High Risk Meds patients 65 and older: Yes ATTENDING PHYSICIAN STATEMENT I saw and evaluated the patient. I reviewed the resident's note and discussed the case with the resident. I agree with the resident's findings and plan as documented. SUBJECTIVE: OBJECTIVE: ASSESSMENT AND PLAN:
--- NOTE | 2019-12-13 11:55 | PN ---
Teaching Attending Note Name of Resident: Maria C Moncada ATTENDING PHYSICIAN STATEMENT I saw and evaluated the patient. I reviewed the resident's note and discussed the case with the resident. I agree with the resident's findings and plan as documented. SUBJECTIVE: OBJECTIVE: ASSESSMENT AND PLAN: 69M w/ a history of DM, HTN, CAD s/p bypass 1996 (Plavix), CHF, CKD, anemia who presents for evaluation of 2 weeks of becoming easily fatigued with activity and worsening BLE swelling and worsening weeping from his lower legs. not fully responding to PO furosemide #Acute on chronic HFpEF ECHO reviewed, pt have HFpEF and Pul HTN IV furosemide, until euvolemic I/O's, Daily weights leg swelling decreased c/w home meds #DM; added levemir #LESTER on CKD; Cr 2.5. F Avoid nephrotoxic agents. renal dose of medications ptn/color weigher 3.8 SPEP kidney biopsy? #Macrocytic Anemia; and thrombocytopenia B12, TSH done, not clinically significant US showed splenomegaly trend H&H improving plt MDS? will need BM biopsy # positive culture - will repeat as WBC normal, pt afebrile #HTN/HLD; Cont home meds: Coreg 12.5 BID, Hydralazine 25 BID, Crestor 20 #CAD (s/p CABG + 3 stents). Cont home meds: Coreg 12.5 BID, Crestor 20 DVT: SCD/TEDs, will hold on chemical ppx in setting of thrombocytopenia GI: PPI
--- NOTE | 2019-12-13 13:02 | PN ---
Physical Exam: SUBJECTIVE: Patient seen and examined OBJECTIVE: Vital Signs Temperature 97.8 F 12/13/19 09:46 Pulse Rate 63 12/13/19 09:46 Respiratory Rate 18 12/13/19 09:46 Blood Pressure 137/67 12/13/19 09:46 O2 Sat by Pulse Oximetry (%) 98 12/13/19 09:46 GENERAL: The patient is awake, alert, and fully oriented, in no acute distress. NECK: full range of motion, supple. LUNGS: Fine bibasilar crackles HEART: Regular rate and rhythm, S1, S2 ABDOMEN: Soft, nontender, nondistended, normoactive bowel sounds EXTREMITIES: 2+ pulses, warm, well-perfused, B/L LE wrapped in bandage NEUROLOGICAL: Cranial nerves II through XII grossly intact. Normal speech PSYCH: Normal mood, normal affect. SKIN: Warm, dry, normal turgor Laboratory Results - last 24 hr 12/11/19 12/12/19 12/12/19 06:05 17:29 21:09 WBC RBC Hgb Hct 32.6 L MCV MCH MCHC RDW Plt Count MPV Absolute Neuts (auto) Neutrophils % Lymphocytes % Monocytes % Eosinophils % Basophils % Nucleated RBC % Sodium Potassium Chloride Carbon Dioxide Anion Gap BUN Creatinine Est GFR (CKD-EPI)AfAm Est GFR (CKD-EPI)NonAf POC Glucometer 264 210 Random Glucose Calcium Phosphorus Magnesium Total Bilirubin AST ALT Alkaline Phosphatase Total Protein Albumin Folate 1804 Folate Hemolysate 588.0 12/13/19 12/13/19 12/13/19 06:00 06:00 06:15 WBC 4.4 RBC 3.40 L Hgb 10.9 L Hct 33.8 L MCV 99.3 H MCH 32.1 MCHC 32.4 RDW 16.1 H Plt Count 92 L D MPV 10.7 Absolute Neuts (auto) 2.8 Neutrophils % 64.2 Lymphocytes % 17.5 Monocytes % 13.3 H Eosinophils % 3.6 Basophils % 1.4 Nucleated RBC % 0 Sodium 136 Potassium 3.9 Chloride 99 Carbon Dioxide 29 Anion Gap 9 BUN 50.1 H Creatinine 2.5 H Est GFR (CKD-EPI)AfAm 29.06 Est GFR (CKD-EPI)NonAf 25.07 POC Glucometer 280 Random Glucose 263 H Calcium 9.4 Phosphorus 3.5 Magnesium 2.4 Total Bilirubin 1.0 AST 16 ALT 15 Alkaline Phosphatase 73 Total Protein 7.5 Albumin 3.7 Folate Folate Hemolysate 12/13/19 11:08 WBC RBC Hgb Hct MCV MCH MCHC RDW Plt Count MPV Absolute Neuts (auto) Neutrophils % Lymphocytes % Monocytes % Eosinophils % Basophils % Nucleated RBC % Sodium Potassium Chloride Carbon Dioxide Anion Gap BUN Creatinine Est GFR (CKD-EPI)AfAm Est GFR (CKD-EPI)NonAf POC Glucometer 277 Random Glucose Calcium Phosphorus Magnesium Total Bilirubin AST ALT Alkaline Phosphatase Total Protein Albumin Folate Folate Hemolysate Active Medications Generic Name Dose Route Start Last Admin Trade Name Freq PRN Reason Stop Dose Admin Acetaminophen 650 mg 12/12/19 14:20 12/12/19 21:15 Tylenol - PO 650 mg Q6H PRN Administration PAIN LEVEL 1-5 Carvedilol 12.5 mg 12/10/19 14:44 12/13/19 09:47 Coreg - PO 12.5 mg BID ISH Administration Cyanocobalamin 100 mcg 12/11/19 10:00 12/13/19 09:47 Vitamin B12 - PO 100 mcg DAILY ISH Administration Ferrous Sulfate 325 mg 12/11/19 10:00 12/13/19 09:48 Feosol - PO 325 mg DAILY ISH Administration Furosemide 40 mg 12/11/19 06:00 12/13/19 06:50 Lasix Injection - IVPUSH 40 mg BIDLASIX ISH Administration Hydralazine HCl 25 mg 12/10/19 22:00 12/13/19 09:48 Apresoline - PO 25 mg BID ISH Administration Insulin Aspart 1 vial 12/10/19 16:30 12/13/19 11:43 Novolog Vial Sliding Scale - SQ 6 units ACHS ISH Administration Protocol Insulin Detemir 8 units 12/13/19 22:00 Levemir Vial SQ 0700,2200 ISH Isosorbide Dinitrate 10 mg 12/11/19 10:00 12/13/19 09:48 Isordil - PO 10 mg BIDISORDIL ISH Administration Pantoprazole Sodium 40 mg 12/11/19 10:00 12/13/19 09:48 Protonix - PO 40 mg DAILY ISH Administration Rosuvastatin Calcium 20 mg 12/10/19 22:00 12/12/19 21:07 Crestor - PO 20 mg HS ISH Administration ASSESSMENT/PLAN: Patient is a 69M w/ pmhx of DM, HTN, CAD (s/p bypass surgery, 1996), CHF, CKD presents in the ED for worsening bilateral LE swelling. #Acute on Chronic CHF -Echo (12/09) - LV grossly normal size, mild LVH, normal systolic function EF 55- 60%, diastolic dysfunction grade II. Calcified aortic valve, mildly restricted. Mild TR with mild pulmonary HTN -will continue with IV Lasix 40 mg BID -Trops neg x2 -CXR showed no acute process -I/O's, Daily weights -LE duplex showed no evid of DVT in b/l LE -Physical therapy -Cont Coreg 12.5mg bid #PVD w/ Bilateral LE ulcers -s/p angioplasty/stent. -Cont routine wound care. Vascular surgery consulted. -Will hold Plavix in setting of thrombocytopenia. #DM -A1c ~6.7 -BGM/ISS ACHS. #CKD -Cr 2.5. (currently at baseline) -Follows with nephro as outpatient. -Avoid nephrotoxic agents. -protein to workforce management coordinator ratio elevated -spep -cont lasix -Nephrology (Dr. Hearn) consulted. REcommendations appreciated. #Macrocytic Anemia -Cont home meds: Ferrous Sulfate 325, Vitamin B12 100 mcg -Folate and Vit b12 levels elevated #Thrombocytopenia, improving -Hold all anti-platelets for now. -Will cont to trend CBC -Heme-onc (Dr. Cintron) consulted. REcommendations appreciated. -B12, folate, TSH -Abd US: diffuse fatty infiltration of the liver and mild splenomegaly -Peripheral blood flow cytometry/cytogenetics sent -may consider bone marrow bx, likely as outpatient #HTN/HLD -Cont home meds: Coreg 12.5 BID, Hydralazine 25 BID, Isosorbide Dinitrate 10 BID -Crestor 20mg HS #CAD -s/p CABG + 3 stents. -Cont home meds: Coreg 12.5 BID, Crestor 20 #FEN -not on any standing fluids -routine bmp monitoring -diabetic/sodium-controlled diet #Prophylaxis -DVT: SCD/TEDs -GI: PPI #Dispo -admit to tele Visit type - Emergency Visit Emergency Visit: Yes ED Registration Date: 12/10/19 Care time: The patient presented to the Emergency Department on the above date and was hospitalized for further evaluation of their emergent condition. - New Patient This patient is new to me today: No - Critical Care Critical Care patient: No - Medication Review Med list reviewed for High Risk Meds patients 65 and older: Yes ATTENDING PHYSICIAN STATEMENT I saw and evaluated the patient. I reviewed the resident's note and discussed the case with the resident. I agree with the resident's findings and plan as documented. SUBJECTIVE: OBJECTIVE: ASSESSMENT AND PLAN:
--- NOTE | 2019-12-13 14:12 | PN ---
Progress Note, Physician History of Present Illness: Pt seen and examined at bedside. He is awake and alert. He feels that his edema is improving. - Current Medication List Current Medications: Active Medications Acetaminophen (Tylenol -) 650 mg PO Q6H PRN PRN Reason: PAIN LEVEL 1-5 Last Admin: 12/12/19 21:15 Dose: 650 mg Documented by: Carvedilol (Coreg -) 12.5 mg PO BID [facility] Last Admin: 12/13/19 09:47 Dose: 12.5 mg Documented by: Cyanocobalamin (Vitamin B12 -) 100 mcg PO DAILY [facility] Last Admin: 12/13/19 09:47 Dose: 100 mcg Documented by: Ferrous Sulfate (Feosol -) 325 mg PO DAILY [facility] Last Admin: 12/13/19 09:48 Dose: 325 mg Documented by: Furosemide (Lasix Injection -) 40 mg IVPUSH BIDLASIX [facility] Last Admin: 12/13/19 13:33 Dose: 40 mg Documented by: Hydralazine HCl (Apresoline -) 25 mg PO BID [facility] Last Admin: 12/13/19 09:48 Dose: 25 mg Documented by: Insulin Aspart (Novolog Vial Sliding Scale -) 1 vial SQ ACHS [facility]; Protocol Last Admin: 12/13/19 11:43 Dose: 6 units Documented by: Insulin Detemir (Levemir Vial) 8 units SQ 0700,2200 [facility] Isosorbide Dinitrate (Isordil -) 10 mg PO BIDISORDIL [facility] Last Admin: 12/13/19 09:48 Dose: 10 mg Documented by: Pantoprazole Sodium (Protonix -) 40 mg PO DAILY [facility] Last Admin: 12/13/19 09:48 Dose: 40 mg Documented by: Rosuvastatin Calcium (Crestor -) 20 mg PO HS [facility] Last Admin: 12/12/19 21:07 Dose: 20 mg Documented by: - Objective Vital Signs: Vital Signs Temperature 97.8 F 12/13/19 09:46 Pulse Rate 63 12/13/19 09:46 Respiratory Rate 18 12/13/19 09:46 Blood Pressure 137/67 12/13/19 09:46 O2 Sat by Pulse Oximetry (%) 98 12/13/19 09:46 Constitutional: Yes: Calm Eyes: Yes: Conjunctiva Clear HENT: Yes: Atraumatic Neck: Yes: Supple Cardiovascular: Yes: S1, S2 Respiratory: Yes: CTA Bilaterally Gastrointestinal: Yes: Soft Genitourinary: Yes: WNL Musculoskeletal: Yes: WNL Edema: Yes Edema: LLE: 2+, RLE: 2+ Neurological: Yes: Oriented Psychiatric: Yes: Oriented Labs: CBC, BMP 12/13/19 06:00 12/13/19 06:00 INR, PTT INR 1.31 (0.83-1.09) H 12/10/19 10:15 Assessment/Plan Current Medications Generic Name Dose Route Start Last Admin Trade Name Freq PRN Reason Stop Dose Admin Acetaminophen 650 mg 12/12/19 14:20 12/12/19 21:15 Tylenol - PO 650 mg Q6H PRN Administration PAIN LEVEL 1-5 Carvedilol 12.5 mg 12/10/19 14:44 12/13/19 09:47 Coreg - PO 12.5 mg BID ISH Administration Cyanocobalamin 100 mcg 12/11/19 10:00 12/13/19 09:47 Vitamin B12 - PO 100 mcg DAILY ISH Administration Ferrous Sulfate 325 mg 12/11/19 10:00 12/13/19 09:48 Feosol - PO 325 mg DAILY ISH Administration Furosemide 40 mg 12/11/19 06:00 12/13/19 13:33 Lasix Injection - IVPUSH 40 mg BIDLASIX ISH Administration Hydralazine HCl 25 mg 12/10/19 22:00 12/13/19 09:48 Apresoline - PO 25 mg BID ISH Administration Insulin Aspart 1 vial 12/10/19 16:30 12/13/19 11:43 Novolog Vial Sliding Scale - SQ 6 units ACHS ISH Administration Protocol Insulin Detemir 8 units 12/13/19 22:00 Levemir Vial SQ 0700,2200 ISH Isosorbide Dinitrate 10 mg 12/11/19 10:00 12/13/19 09:48 Isordil - PO 10 mg BIDISORDIL ISH Administration Pantoprazole Sodium 40 mg 12/11/19 10:00 12/13/19 09:48 Protonix - PO 40 mg DAILY ISH Administration Rosuvastatin Calcium 20 mg 12/10/19 22:00 12/12/19 21:07 Crestor - PO 20 mg HS ISH Administration Impression 1. CKD 2. volume overload 3. hld 4. htn 5. dm 6. proteinuria 7. pancytopenia 8. various skin lesions, looke like scabs, will observe Plan - cont lasix - renal function not far from baseline - pt had platelets of 80 last week as outpt - discussed with his resident care technician, Dr Thomas, renal function has been stable as outpt and pt has history of proteinuria. Would defer renal biopsy to primary outpt resident care technician. - cont to monitor platelets, improving - follow spep - monitor volume status - discussed diet, pt is not compliant with diet - avoid nsaids
[2019-12-13] MEDS: ROSUVASTATIN CA 20 MG TABLET (FP) PO SCH (21:15)
[2019-12-13] MEDS: INSULIN (LEVEMIR) 100 UNITS/ML UNITS SQ SCH (22:10)
[2019-12-14] MEDS: MUPIROCIN 2% TOPICAL OINTMENT 22 GM TUBE TP SCH ×3 (00:11→21:26)
[2019-12-14] MEDS: FUROSEMIDE 40 MG/4 ML INJECTABLE VIAL IVPUSH SCH (06:13)
[2019-12-14] MEDS: INSULIN (LEVEMIR) 100 UNITS/ML UNITS SQ SCH ×2 (06:15→21:20)
[2019-12-14] MEDS: INSULIN SLIDING SCALE (NOVOLOG) 1 VIAL SQ SCH ×4 (06:16→21:20)
[2019-12-14 06:53] LABS: BASO % 1.4 % (0-2.0); EOS % 3.9 % (0-4.5); HEMATOCRIT 31.9 % (35.4-49); HEMOGLOBIN 10.4 GM/dL (11.7-16.9); LYMPH % 19.2 % (8-40); MCH 32.2 pg (25.7-33.7); MCHC 32.7 g/dl (32.0-35.9); MEAN CELL VOLUME 98.6 fl (80-96); NEUT % 61.5 % (42.8-82.8); PLATELET COUNT 87 K/MM3 (134-434); RBC 3.24 M/mm3 (4.00-5.60); RDW 16.1 % (11.9-15.9); WHITE BLOOD COUNT 4.4 K/mm3 (4.0-10.0)
[2019-12-14 07:24] LABS: CALCIUM 9.2 mg/dL (8.5-10.1); CREATININE 2.6 mg/dL (0.55-1.3); MAGNESIUM 2.4 mg/dL (1.8-2.4); POTASSIUM 4.1 mmol/L (3.5-5.1)
[2019-12-14] MEDS ORDERED: PT OWN MED DRAWER 7, Y5N ONE ×2 (09:49→17:06)
[2019-12-14] MEDS: CARVEDILOL 12.5 MG TABLET (FP) PO SCH ×2 (10:01→21:17)
[2019-12-14] MEDS: FERROUS SO4 325 MG TABLET (FP) PO SCH (10:01)
[2019-12-14] MEDS: CYANOCOBALAMIN (VITAMIN B-12) 100 MCG TABLET PO SCH (10:01)
[2019-12-14] MEDS: ISOSORBIDE DINITRATE 10 MG TABLET (FP) PO SCH ×2 (10:01→17:21)
[2019-12-14] MEDS: hydrALAZINE HCL 25 MG TABLET (FP) PO SCH ×2 (10:01→21:17)
[2019-12-14] MEDS: PANTOPRAZOLE 40 MG TABLET PO SCH (10:01)
--- NOTE | 2019-12-14 11:33 | PN ---
Teaching Attending Note Name of Resident: Maria C Moncada ATTENDING PHYSICIAN STATEMENT I saw and evaluated the patient. I reviewed the resident's note and discussed the case with the resident. I agree with the resident's findings and plan as documented. SUBJECTIVE: seen and examined, pleasant OBJECTIVE: Last Vital Signs Temp Pulse Resp BP Pulse Ox 98.1 F 70 20 133/70 98 12/14/19 06:10 12/14/19 06:10 12/14/19 06:10 12/14/19 06:10 12/13/19 23:38 GENERAL: Awake, alert, and fully oriented, in no acute distress. HEENT: neck supple, obese unable to assess JVD LUNGS: clear to auscultation HEART: Regular rate and rhythm, normal S1 and S2 ABDOMEN: obese, Soft, nontender, not distended MUSCULOSKELETAL: both legs wrapped in surgical dressing, pt wanted his surgeon to change the dressing if needed UPPER EXTREMITIES: 2+ pulses, warm, well-perfused. No cyanosis. No clubbing. No peripheral edema. LOWER EXTREMITIES: 2+ pulses, warm, well-perfused. No calf tenderness. Edema extending to knees +1, much improved [id number] more obvious on medial aspect of both thighs with mild tenderness to palpation NEUROLOGICAL: Cranial nerves II-XII intact. Normal speech. Skin: scattered open blisters on upper extremities bilaterally CBCD WBC 4.4 K/mm3 (4.0-10.0) 12/14/19 06:35 RBC 3.24 M/mm3 (4.00-5.60) L 12/14/19 06:35 Hgb 10.4 GM/dL (11.7-16.9) L 12/14/19 06:35 Hct 31.9 % (35.4-49) L 12/14/19 06:35 MCV 98.6 fl (80-96) H 12/14/19 06:35 MCHC 32.7 g/dl (32.0-35.9) 12/14/19 06:35 RDW 16.1 % (11.9-15.9) H 12/14/19 06:35 Plt Count 87 K/MM3 (134-434) L 12/14/19 06:35 MPV 10.0 fl (7.5-11.1) 12/14/19 06:35 CMP Sodium 136 mmol/L (136-145) 12/14/19 06:35 Potassium 4.1 mmol/L (3.5-5.1) 12/14/19 06:35 Chloride 98 mmol/L (98-107) 12/14/19 06:35 Carbon Dioxide 31 mmol/L (21-32) 12/14/19 06:35 Anion Gap 7 MMOL/L (8-16) L 12/14/19 06:35 BUN 54.0 mg/dL (7-18) H 12/14/19 06:35 Creatinine 2.6 mg/dL (0.55-1.3) H 12/14/19 06:35 Calcium 9.2 mg/dL (8.5-10.1) 12/14/19 06:35 Total Bilirubin 1.0 mg/dL (0.2-1) 12/13/19 06:00 AST 16 U/L (15-37) 12/13/19 06:00 ALT 15 U/L (13-61) 12/13/19 06:00 Alkaline Phosphatase 73 U/L (45-117) 12/13/19 06:00 Total Protein 7.5 g/dl (6.4-8.2) 12/13/19 06:00 Albumin 3.7 g/dl (3.4-5.0) 12/13/19 06:00 ASSESSMENT AND PLAN: 69M w/ a history of DM, HTN, CAD s/p bypass 1996 (Plavix), CHF, CKD, anemia who presents for evaluation of 2 weeks of becoming easily fatigued with activity and worsening BLE swelling and worsening weeping from his lower legs. not fully responding to PO furosemide #Acute on chronic HFpEF ECHO reviewed, pt have HFpEF and Pul HTN IV furosemide decrease to once daily I/O's, Daily weights leg swelling decreased c/w home meds #DM; levemir #LESTER on CKD; Cr 2.5. F Avoid nephrotoxic agents. 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 will need BM biopsy # positive culture - will repeat as WBC normal, pt afebrile #HTN/HLD #CAD DVT: SCD/TEDs, will hold on chemical ppx in setting of thrombocytopenia GI: PPI if cultures are still negative will d/c in AM plan for outpatient appointments with his PMD, taker off hemp fiber, auto rebuilder and hem/onc spoke with patient and his , who agrees with the above plan.
--- NOTE | 2019-12-14 11:53 | PN ---
Physical Exam: SUBJECTIVE: Patient seen and examined. No acute events overnight. OBJECTIVE: Vital Signs Temperature 98.5 F 12/14/19 10:00 Pulse Rate 70 12/14/19 10:00 Respiratory Rate 12/14/19 10:00 Blood Pressure 132/66 12/14/19 10:00 O2 Sat by Pulse Oximetry (%) 98 12/14/19 10:00 GENERAL: The patient is awake, alert, and fully oriented, in no acute distress. NECK: full range of motion, supple. LUNGS: Fine bibasilar crackles HEART: Regular rate and rhythm, S1, S2 ABDOMEN: Soft, nontender, nondistended, normoactive bowel sounds EXTREMITIES: 2+ pulses, warm, well-perfused, B/L LE wrapped in bandage NEUROLOGICAL: Cranial nerves II through XII grossly intact. Normal speech PSYCH: Normal mood, normal affect. SKIN: Warm, dry, normal turgor Laboratory Results - last 24 hr 12/12/19 12/13/19 12/13/19 13:15 17:20 21:47 WBC RBC Hgb Hct MCV MCH MCHC RDW Plt Count MPV Absolute Neuts (auto) Neutrophils % Lymphocytes % Monocytes % Eosinophils % Basophils % Nucleated RBC % Sodium Potassium Chloride Carbon Dioxide Anion Gap BUN Creatinine Est GFR (CKD-EPI)AfAm Est GFR (CKD-EPI)NonAf POC Glucometer 245 253 Random Glucose Calcium Magnesium Total Protein (PEP) 6.8 Albumin (PEP) 3.6 Globulin 3.2 Albumin/Globulin Ratio 1.1 Beta Globulins 1.0 CHASTITY M-Jairon Not observed 12/14/19 12/14/19 12/14/19 05:13 06:35 06:35 WBC 4.4 RBC 3.24 L Hgb 10.4 L Hct 31.9 L MCV 98.6 H MCH 32.2 MCHC 32.7 RDW 16.1 H Plt Count 87 L MPV 10.0 Absolute Neuts (auto) 2.7 Neutrophils % 61.5 Lymphocytes % 19.2 Monocytes % 14.0 H Eosinophils % 3.9 Basophils % 1.4 Nucleated RBC % 0 Sodium 136 Potassium 4.1 Chloride 98 Carbon Dioxide 31 Anion Gap 7 L BUN 54.0 H Creatinine 2.6 H Est GFR (CKD-EPI)AfAm 27.72 Est GFR (CKD-EPI)NonAf 23.91 POC Glucometer 189 Random Glucose 205 H Calcium 9.2 Magnesium 2.4 Total Protein (PEP) Albumin (PEP) Globulin Albumin/Globulin Ratio Beta Globulins CHASTITY M-Jairon Active Medications Generic Name Dose Route Start Last Admin Trade Name Freq PRN Reason Stop Dose Admin Acetaminophen 650 mg 12/12/19 14:20 12/12/19 21:15 Tylenol - PO 650 mg Q6H PRN Administration PAIN LEVEL 1-5 Carvedilol 12.5 mg 12/10/19 14:44 12/14/19 10:01 Coreg - PO 12.5 mg BID [facility] Administration Cyanocobalamin 100 mcg 12/11/19 10:00 12/14/19 10:01 Vitamin B12 - PO 100 mcg DAILY [facility] Administration Ferrous Sulfate 325 mg 12/11/19 10:00 12/14/19 10:01 Feosol - PO 325 mg DAILY [facility] Administration Furosemide 40 mg 12/15/19 10:00 Lasix Injection - IVPUSH DAILY [facility] Hydralazine HCl 25 mg 12/10/19 22:00 12/14/19 10:01 Apresoline - PO 25 mg BID [facility] Administration Insulin Aspart 1 vial 12/10/19 16:30 12/14/19 06:16 Novolog Vial Sliding Scale - SQ 4 units ACHS [facility] Administration Protocol Insulin Detemir 10 units 12/14/19 22:00 Levemir Vial SQ BID@0700,2200 [facility] Isosorbide Dinitrate 10 mg 12/11/19 10:00 12/14/19 10:01 Isordil - PO 10 mg BIDISORDIL [facility] Administration Mupirocin 1 applic 12/13/19 22:00 12/14/19 00:11 Bactroban 2% Ointment - TP Not Given BID [facility] Pantoprazole Sodium 40 mg 12/11/19 10:00 12/14/19 10:01 Protonix - PO 40 mg DAILY [facility] Administration Rosuvastatin Calcium 20 mg 12/10/19 22:00 12/13/19 21:15 Crestor - PO 20 mg HS [facility] Administration ASSESSMENT/PLAN: Patient is a 69M w/ pmhx of DM, HTN, CAD (s/p bypass surgery, 1996), CHF, CKD p resents in the ED for worsening bilateral LE swelling. #Acute on Chronic CHF -Echo (12/09) - LV grossly normal size, mild LVH, normal systolic function EF 55- 60%, diastolic dysfunction grade II. Calcified aortic valve, mildly restricted. Mild TR with mild pulmonary HTN -decreased IV Lasix to 40mg daily. Likely can switch to PO tomorrow -Trops neg x2 -CXR showed no acute process -I/O's, Daily weights -LE duplex showed no evid of DVT in b/l LE -Physical therapy -Cont Coreg 12.5mg bid #PVD w/ Bilateral LE ulcers -s/p angioplasty/stent. -Cont routine wound care. Vascular surgery consulted. -Will hold Plavix in setting of thrombocytopenia. #DM -A1c ~6.7 -BGM/ISS ACHS. #CKD -Cr at baseline -Avoid nephrotoxic agents. -protein to geriatric physician ratio elevated -spep -cont lasix -to follow up with aquatic director upon discharge -Nephrology (Dr. Hearn) consulted. REcommendations appreciated. #Macrocytic Anemia -Cont home meds: Ferrous Sulfate 325, Vitamin B12 100 mcg -Folate and Vit b12 levels elevated #Thrombocytopenia, improving -Hold all anti-platelets for now. -Will cont to trend CBC -Heme-onc (Dr. Cintron) consulted. REcommendations appreciated. -B12, folate, TSH -Abd US: diffuse fatty infiltration of the liver and mild splenomegaly -Peripheral blood flow cytometry/cytogenetics sent. to follow up results OP -may consider bone marrow bx, likely as outpatient #HTN/HLD -Cont home meds: Coreg 12.5 BID, Hydralazine 25 BID, Isosorbide Dinitrate 10 BID -Crestor 20mg HS #CAD -s/p CABG + 3 stents. -Cont home meds: Coreg 12.5 BID, Crestor 20 #FEN -not on any standing fluids -routine bmp monitoring -diabetic/sodium-controlled diet #Prophylaxis -DVT: SCD/TEDs -GI: PPI #Dispo -admit to tele Visit type - Emergency Visit Emergency Visit: Yes ED Registration Date: 12/10/19 Care time: The patient presented to the Emergency Department on the above date and was hospitalized for further evaluation of their emergent condition. - New Patient This patient is new to me today: No - Critical Care Critical Care patient: No - Medication Review Med list reviewed for High Risk Meds patients 65 and older: Yes ATTENDING PHYSICIAN STATEMENT I saw and evaluated the patient. I reviewed the resident's note and discussed the case with the resident. I agree with the resident's findings and plan as documented. SUBJECTIVE: OBJECTIVE: ASSESSMENT AND PLAN:
--- NOTE | 2019-12-14 14:46 | PN ---
Progress Note, Physician History of Present Illness: Pt seen and examined at bedside. He is awake and alert. He feels that his edema is improving. - Current Medication List Current Medications: Active Medications Acetaminophen (Tylenol -) 650 mg PO Q6H PRN PRN Reason: PAIN LEVEL 1-5 Last Admin: 12/12/19 21:15 Dose: 650 mg Documented by: Carvedilol (Coreg -) 12.5 mg PO BID [facility] Last Admin: 12/14/19 10:01 Dose: 12.5 mg Documented by: Cyanocobalamin (Vitamin B12 -) 100 mcg PO DAILY [facility] Last Admin: 12/14/19 10:01 Dose: 100 mcg Documented by: Ferrous Sulfate (Feosol -) 325 mg PO DAILY [facility] Last Admin: 12/14/19 10:01 Dose: 325 mg Documented by: Furosemide (Lasix Injection -) 40 mg IVPUSH DAILY [facility] Hydralazine HCl (Apresoline -) 25 mg PO BID [facility] Last Admin: 12/14/19 10:01 Dose: 25 mg Documented by: Insulin Aspart (Novolog Vial Sliding Scale -) 1 vial SQ [facility]; Protocol Last Admin: 12/14/19 12:28 Dose: Not Given Documented by: Insulin Detemir (Levemir Vial) 10 units SQ BID@0700,2200 [facility] Isosorbide Dinitrate (Isordil -) 10 mg PO BIDISORDIL [facility] Last Admin: 12/14/19 10:01 Dose: 10 mg Documented by: Mupirocin (Bactroban 2% Ointment -) 1 applic TP BID [facility] Last Admin: 12/14/19 12:29 Dose: Not Given Documented by: Pantoprazole Sodium (Protonix -) 40 mg PO DAILY [facility] Last Admin: 12/14/19 10:01 Dose: 40 mg Documented by: Rosuvastatin Calcium (Crestor -) 20 mg PO HS [facility] Last Admin: 12/13/19 21:15 Dose: 20 mg Documented by: - Objective Vital Signs: Vital Signs Temperature 98.5 F 12/14/19 10:00 Pulse Rate 70 12/14/19 10:00 Respiratory Rate 20 12/14/19 10:00 Blood Pressure 132/66 12/14/19 10:00 O2 Sat by Pulse Oximetry (%) 98 12/14/19 10:00 Constitutional: Yes: Calm Eyes: Yes: Conjunctiva Clear HENT: Yes: Atraumatic Neck: Yes: Supple Cardiovascular: Yes: S1, S2 Respiratory: Yes: CTA Bilaterally Gastrointestinal: Yes: Normal Bowel Sounds, Soft Genitourinary: Yes: WNL Musculoskeletal: Yes: WNL Edema: Yes Edema: LLE: 2+, RLE: 2+ Neurological: Yes: Oriented Psychiatric: Yes: Oriented Labs: CBC, BMP 12/14/19 06:35 12/14/19 06:35 INR, PTT INR 1.31 (0.83-1.09) H 12/10/19 10:15 Assessment/Plan Current Medications Generic Name Dose Route Start Last Admin Trade Name Freq PRN Reason Stop Dose Admin Acetaminophen 650 mg 12/12/19 14:20 12/12/19 21:15 Tylenol - PO 650 mg Q6H PRN Administration PAIN LEVEL 1-5 Carvedilol 12.5 mg 12/10/19 14:44 12/14/19 10:01 Coreg - PO 12.5 mg BID [facility] Administration Cyanocobalamin 100 mcg 12/11/19 10:00 12/14/19 10:01 Vitamin B12 - PO 100 mcg DAILY [facility] Administration Ferrous Sulfate 325 mg 12/11/19 10:00 12/14/19 10:01 Feosol - PO 325 mg DAILY [facility] Administration Furosemide 40 mg 12/15/19 10:00 Lasix Injection - IVPUSH DAILY [facility] Hydralazine HCl 25 mg 12/10/19 22:00 12/14/19 10:01 Apresoline - PO 25 mg BID [facility] Administration Insulin Aspart 1 vial 12/10/19 16:30 12/14/19 12:28 Novolog Vial Sliding Scale - SQ Not Given ACHS [facility] Protocol Insulin Detemir 10 units 12/14/19 22:00 Levemir Vial SQ BID@0700,2200 [facility] Isosorbide Dinitrate 10 mg 12/11/19 10:00 12/14/19 10:01 Isordil - PO 10 mg BIDISORDIL [facility] Administration Mupirocin 1 applic 12/13/19 22:00 12/14/19 12:29 Bactroban 2% Ointment - TP Not Given BID [facility] Pantoprazole Sodium 40 mg 12/11/19 10:00 12/14/19 10:01 Protonix - PO 40 mg DAILY [facility] Administration Rosuvastatin Calcium 20 mg 12/10/19 22:00 12/13/19 21:15 Crestor - PO 20 mg HS [facility] Administration Impression 1. CKD 2. volume overload 3. hld 4. htn 5. dm 6. proteinuria 7. pancytopenia 8. various skin lesions, looke like scabs, will observe Plan - volume status improving - monitor renal function - cont lasix, can switch to PO likely tomorrow - will need outpt follow up - follow spep - monitor platelets - discussed diet again - avoid nsaids
[2019-12-14] MEDS: ROSUVASTATIN CA 20 MG TABLET (FP) PO SCH (21:17)
[2019-12-15] VITALS: BMI 32.4
[2019-12-15] MEDS: INSULIN SLIDING SCALE (NOVOLOG) 1 VIAL SQ SCH ×2 (06:12→12:25)
[2019-12-15] MEDS: INSULIN (LEVEMIR) 100 UNITS/ML UNITS SQ SCH (06:12)
[2019-12-15 08:53] VITALS: BP 135/86; PULSE 78; TEMP 97.7
[2019-12-15] MEDS ORDERED: PT OWN MED DRAWER 7, Y5N ONE ×2 (08:59→09:55)
--- NOTE | 2019-12-15 09:36 | PN ---
Physical Exam: SUBJECTIVE: Patient seen and examined OBJECTIVE: Vital Signs Period Temp Pulse Resp BP Sys/Espinosa Pulse Ox Last 24 Hr 97.7 F-98.8 F 67-78 18-20 111-153/62-93 96-100 GENERAL: Awake, alert, and fully oriented, in no acute distress. HEENT: neck supple, obese unable to assess JVD LUNGS: clear to auscultation HEART: Regular rate and rhythm, normal S1 and S2 ABDOMEN: obese, Soft, nontender, not distended MUSCULOSKELETAL: both legs wrapped in surgical dressing, pt wanted his surgeon to change the dressing if needed UPPER EXTREMITIES: 2+ pulses, warm, well-perfused. No cyanosis. No clubbing. No peripheral edema. LOWER EXTREMITIES: 2+ pulses, warm, well-perfused. No calf tenderness. Edema extending to knees +1, much improved [id number] more obvious on medial aspect of both thighs with mild tenderness to palpation NEUROLOGICAL: Cranial nerves II-XII intact. Normal speech. Skin: scattered open blisters on upper extremities bilaterally Laboratory Results - last 24 hr 12/11/19 12/14/19 12/14/19 17:20 11:54 17:11 POC Glucometer 155 243 Ur Random Creatinine 18.2 Ur Random Microalbumin 228.3 Microalb/Creat Ratio 1254 H 12/14/19 12/15/19 21:10 06:00 POC Glucometer 178 170 Ur Random Creatinine Ur Random Microalbumin Microalb/Creat Ratio Active Medications Generic Name Dose Route Start Last Admin Trade Name Freq PRN Reason Stop Dose Admin Acetaminophen 650 mg 12/12/19 14:20 12/12/19 21:15 Tylenol - PO 650 mg Q6H PRN Administration PAIN LEVEL 1-5 Carvedilol 12.5 mg 12/10/19 14:44 12/14/19 21:17 Coreg - PO 12.5 mg BID [facility] Administration Cyanocobalamin 100 mcg 12/11/19 10:00 12/14/19 10:01 Vitamin B12 - PO 100 mcg DAILY [facility] Administration Ferrous Sulfate 325 mg 12/11/19 10:00 12/14/19 10:01 Feosol - PO 325 mg DAILY [facility] Administration Furosemide 40 mg 12/15/19 10:00 Lasix Injection - IVPUSH DAILY [facility] Hydralazine HCl 25 mg 12/10/19 22:00 12/14/19 21:17 Apresoline - PO 25 mg BID [facility] Administration Insulin Aspart 1 vial 12/10/19 16:30 12/15/19 06:12 Novolog Vial Sliding Scale - SQ 2 units ACHS [facility] Administration Protocol Insulin Detemir 10 units 12/14/19 22:00 12/15/19 06:12 Levemir Vial SQ 10 units BID@0700,2200 [facility] Administration Isosorbide Dinitrate 10 mg 12/11/19 10:00 12/14/19 17:21 Isordil - PO 10 mg BIDISORDIL [facility] Administration Mupirocin 1 applic 12/13/19 22:00 12/14/19 21:26 Bactroban 2% Ointment - TP 1 applic BID [facility] Administration Pantoprazole Sodium 40 mg 12/11/19 10:00 12/14/19 10:01 Protonix - PO 40 mg DAILY [facility] Administration Rosuvastatin Calcium 20 mg 12/10/19 22:00 12/14/19 21:17 Crestor - PO 20 mg HS [facility] Administration ASSESSMENT/PLAN: 69M w/ a history of DM, HTN, CAD s/p bypass 1996 (Plavix), CHF, CKD, anemia who presents for evaluation of 2 weeks of becoming easily fatigued with activity and worsening BLE swelling and worsening weeping from his lower legs. not fully responding to PO furosemide #Acute on chronic HFpEF ECHO reviewed, pt have HFpEF and Pul HTN IV furosemide decrease to once daily I/O's, Daily weights leg swelling decreased c/w home meds #LESTER on CKD; Avoid nephrotoxic agents. renal dose of medications nephrotic range SPEP, kidney biopsy, pt elected to c/w his outpatient racing mechanic #Macrocytic Anemia; and thrombocytopenia flow cytometry sent trend H&H improving plt MDS? will need BM biopsy #HTN/HLD #CAD #DM repeat culture showing no growth, likely contaminated first set plan for outpatient appointments with his PMD, junior graphic designer, racing mechanic and hem/onc discharge in afternoon. Visit type - Emergency Visit Emergency Visit: Yes ED Registration Date: 12/10/19 Care time: The patient presented to the Emergency Department on the above date and was hospitalized for further evaluation of their emergent condition. - New Patient This patient is new to me today: No - Critical Care Critical Care patient: No - Discharge Referral Referred to [facility] Med P.C.: No - Medication Review Med list reviewed for High Risk Meds patients 65 and older: Yes (reviewed)
[2019-12-15] MEDS ORDERED: FUROSEMIDE 40 MG/4 ML INJECTABLE VIAL IVPUSH SCH (10:00)
[2019-12-15] MEDS: CARVEDILOL 12.5 MG TABLET (FP) PO SCH (10:32)
[2019-12-15] MEDS: ISOSORBIDE DINITRATE 10 MG TABLET (FP) PO SCH (10:32)
[2019-12-15] MEDS: FERROUS SO4 325 MG TABLET (FP) PO SCH (10:32)
[2019-12-15] MEDS: hydrALAZINE HCL 25 MG TABLET (FP) PO SCH (10:32)
[2019-12-15] MEDS: PANTOPRAZOLE 40 MG TABLET PO SCH (10:32)
[2019-12-15] MEDS: CYANOCOBALAMIN (VITAMIN B-12) 100 MCG TABLET PO SCH (10:32)
[2019-12-15] MEDS: MUPIROCIN 2% TOPICAL OINTMENT 22 GM TUBE TP SCH (10:33)
--- NOTE | 2019-12-15 11:16 | DS ---
Physical Exam: SUBJECTIVE: Patient seen and examined OBJECTIVE: Vital Signs Period Temp Pulse Resp BP Sys/Espinosa Pulse Ox Last 24 Hr 97.7 F-98.8 F 67-78 18-20 111-153/62-93 96-100 PHYSICAL EXAM GENERAL: Awake, alert, and fully oriented, in no acute distress. HEENT: neck supple, obese unable to assess JVD LUNGS: clear to auscultation HEART: Regular rate and rhythm, normal S1 and S2 ABDOMEN: obese, Soft, nontender, not distended MUSCULOSKELETAL: both legs wrapped in surgical dressing, pt wanted his surgeon to change the dressing if needed UPPER EXTREMITIES: 2+ pulses, warm, well-perfused. No cyanosis. No clubbing. No peripheral edema. LOWER EXTREMITIES: 2+ pulses, warm, well-perfused. No calf tenderness. Edema extending to knees +1, much improved [id number] more obvious on medial aspect of both thighs with mild tenderness to palpation NEUROLOGICAL: Cranial nerves II-XII intact. Normal speech. Skin: scattered open blisters on upper extremities bilaterally LABS Laboratory Results - last 24 hr 12/11/19 12/14/19 12/14/19 17:20 11:54 17:11 POC Glucometer 155 243 Ur Random Creatinine 18.2 Ur Random Microalbumin 228.3 Microalb/Creat Ratio 1254 H 12/14/19 12/15/19 21:10 06:00 POC Glucometer 178 170 Ur Random Creatinine Ur Random Microalbumin Microalb/Creat Ratio CBCD WBC 4.4 K/mm3 (4.0-10.0) 12/14/19 06:35 RBC 3.24 M/mm3 (4.00-5.60) L 12/14/19 06:35 Hgb 10.4 GM/dL (11.7-16.9) L 12/14/19 06:35 Hct 31.9 % (35.4-49) L 12/14/19 06:35 MCV 98.6 fl (80-96) H 12/14/19 06:35 MCHC 32.7 g/dl (32.0-35.9) 12/14/19 06:35 RDW 16.1 % (11.9-15.9) H 12/14/19 06:35 Plt Count 87 K/MM3 (134-434) L 12/14/19 06:35 MPV 10.0 fl (7.5-11.1) 12/14/19 06:35 CMP Sodium 136 mmol/L (136-145) 12/14/19 06:35 Potassium 4.1 mmol/L (3.5-5.1) 12/14/19 06:35 Chloride 98 mmol/L (98-107) 12/14/19 06:35 Carbon Dioxide 31 mmol/L (21-32) 12/14/19 06:35 Anion Gap 7 MMOL/L (8-16) L 12/14/19 06:35 BUN 54.0 mg/dL (7-18) H 12/14/19 06:35 Creatinine 2.6 mg/dL (0.55-1.3) H 12/14/19 06:35 Calcium 9.2 mg/dL (8.5-10.1) 12/14/19 06:35 Total Bilirubin 1.0 mg/dL (0.2-1) 12/13/19 06:00 AST 16 U/L (15-37) 12/13/19 06:00 ALT 15 U/L (13-61) 12/13/19 06:00 Alkaline Phosphatase 73 U/L (45-117) 12/13/19 06:00 Total Protein 7.5 g/dl (6.4-8.2) 12/13/19 06:00 Albumin 3.7 g/dl (3.4-5.0) 12/13/19 06:00 HOME MEDICATIONS: Home Medications Medication Instructions Recorded Omeprazole 40 mg PO DAILY 09/28/19 Carvedilol 12.5 mg PO Q12H 12/10/19 Clopidogrel Bisulfate [Clopidogrel] 75 mg PO DAILY 12/10/19 Cyanocobalamin [Vitamin B12 -] 1 tab PO DAILY 12/10/19 Ferrous Sulfate [Iron] 325 mg PO DAILY 12/10/19 Hydralazine HCl 25 mg PO BID 12/10/19 Isosorbide Dinitrate [Isordil] 10 mg PO BID 12/10/19 Rosuvastatin [Crestor -] 20 mg PO HS 12/10/19 Mupirocin Ointment [Bactroban 2% 1 applic TP BID applic 12/14/19 Ointment -] Furosemide 40 mg PO DAILY #10 tablet 12/15/19 HOSPITAL COURSE: pt was admitted for treatment of acute on chronic heart failure and was placed on IV diuretics, his leg swelling and dyspnea improved. Pt was noted to have thrombocytopenia, survey data technician was consulted and condition was evaluated. His platelets count remained stable and pt was instructed to continue follow up as outpatient. Pt was noted to have high proteinuria in nephrotic range, laser engraver was consulted and pt was recommended to get kidney biopsy but pt wanted to continue workup with his outpatient laser engraver. Blood cultures were done on admission and one set came up positive. However, pt did not show any signs of systemic infection, so blood cultures were repeat. Pt continued to be afebrile, no WBC count, improving with IV diuresis. Repeated culture were negative for any growth and pt was discharged home on IV furosemide and follow up with his PMD and grinder operator tool. Date of Admission:12/10/19 Date of Discharge: 12/15/19 Minutes to complete discharge: 35 Discharge Summary Problems reviewed: Yes Reason For Visit: ACUTE CHRONIC CHF FATIGUE SWELLING OF LOWER EXTREM Current Active Problems Fatigue (Acute) Venous (peripheral) insufficiency (Acute) Condition: Stable - Instructions Diet, Activity, Other Instructions: Please, schedule a follow up appointment with your grinder operator tool within a week Please, schedule a follow up appointment with your primary care provider within a week Please, schedule a follow up appointment with survey data technician Avoid high salt intake, take your medications as instructed. If have an emergency, call 911 or come to Emergency Department. Referrals: Lonny Maravilla MD [Primary Care Provider] - Disposition: HOME - Home Medications Comprehensive Discharge Medication List: Ambulatory Orders Omeprazole 40 mg PO DAILY 09/28/19 Carvedilol 12.5 mg PO Q12H 12/10/19 Clopidogrel Bisulfate [Clopidogrel] 75 mg PO DAILY 12/10/19 Cyanocobalamin [Vitamin B12 -] 1 tab PO DAILY 12/10/19 Ferrous Sulfate [Iron] 325 mg PO DAILY 12/10/19 Hydralazine HCl 25 mg PO BID 12/10/19 Isosorbide Dinitrate [Isordil] 10 mg PO BID 12/10/19 Rosuvastatin [Crestor -] 20 mg PO HS 12/10/19 Mupirocin Ointment [Bactroban 2% Ointment -] 1 applic TP BID applic 12/14/19 Furosemide 40 mg PO DAILY #10 tablet 12/15/19 This patient is new to me today: No Emergency Visit: Yes ED Registration Date: 12/10/19 Care time: The patient presented to the Emergency Department on the above date and was hospitalized for further evaluation of their emergent condition. Critical Care patient: No - Discharge Referral Referred to [facility] Med P.C.: No
--- NOTE | 2019-12-15 13:19 | PN ---
Progress Note, Physician History of Present Illness: Pt seen and examined at bedside. He is awake and alert. He feels edema is improving. - Objective Vital Signs: Vital Signs Temperature 97.7 F 12/15/19 08:52 Pulse Rate 78 12/15/19 08:52 Respiratory Rate 18 12/15/19 09:00 Blood Pressure 135/86 12/15/19 08:52 O2 Sat by Pulse Oximetry (%) 100 12/15/19 09:00 Constitutional: Yes: Calm Eyes: Yes: Conjunctiva Clear HENT: Yes: Atraumatic Cardiovascular: Yes: S1, S2 Respiratory: Yes: CTA Bilaterally Gastrointestinal: Yes: Soft Genitourinary: Yes: WNL Musculoskeletal: Yes: WNL Edema: Yes Edema: LLE: 1+, RLE: 1+ Integumentary: Yes: WNL Neurological: Yes: Oriented Psychiatric: Yes: Oriented Labs: CBC, BMP 12/14/19 06:35 12/14/19 06:35 INR, PTT INR 1.31 (0.83-1.09) H 12/10/19 10:15 Assessment/Plan Laboratory Tests 12/12/19 12/12/19 12/13/19 12:00 13:15 06:00 Plt Count 92 L D Total Protein (PEP) 6.8 Albumin (PEP) 3.6 Globulin 3.2 Albumin/Globulin Ratio 1.1 Beta Globulins 1.0 Protein/Creatinin Ratio 3.8 CHASTITY M-Jairon Not observed 12/14/19 06:35 Plt Count 87 L Total Protein (PEP) Albumin (PEP) Globulin Albumin/Globulin Ratio Beta Globulins Protein/Creatinin Ratio CHASTITY M-Jairon Impression 1. CKD 2. volume overload 3. hld 4. htn 5. dm 6. proteinuria 7. pancytopenia 8. various skin lesions, looke like scabs, will observe Plan - cont lasix - pt will follow with his health and wellness coach next week - discussed low sodium diet - monitor platelets - avoid nsaids
== END 2019-12-15 13:00 | disposition home or self-care (01) | DRG 291 ==
LOC: JER 09:23 → JERBED 12:54 → J4W 18:43
PROVIDERS: ADMIT Internal Medicine; ATTEND Student in an Organized Health Care Education/Training Program
DX: I13.0 Hypertensive heart and chronic kidney disease with heart failure and stage 1 through stage 4 chronic kidney disease, or unspecified chronic kidney disease (principal); I50.33 Acute on chronic diastolic (congestive) heart failure; D61.818 Other pancytopenia; N17.9 Acute kidney failure, unspecified; L97.929 Non-pressure chronic ulcer of unspecified part of left lower leg with unspecified severity; L97.919 Non-pressure chronic ulcer of unspecified part of right lower leg with unspecified severity; E11.22 Type 2 diabetes mellitus with diabetic chronic kidney disease; I25.10 Atherosclerotic heart disease of native coronary artery without angina pectoris; N18.9 Chronic kidney disease, unspecified; I50.9 Heart failure, unspecified; D64.9 Anemia, unspecified; I45.10 Unspecified right bundle-branch block; I44.0 Atrioventricular block, first degree; Z79.4 Long term (current) use of insulin; E11.51 Type 2 diabetes mellitus with diabetic peripheral angiopathy without gangrene; D69.6 Thrombocytopenia, unspecified; Z95.1 Presence of aortocoronary bypass graft; R16.1 Splenomegaly, not elsewhere classified; I27.20 Pulmonary hypertension, unspecified; E87.5 Hyperkalemia
CPT/HCPCS: 36415; 71045-TC-FY; 76700-TC; 80048; 80053; 81003; 82043; 82565; 82570; 82607; 82746; 82747; 82962; 83036; 83615; 83735; 83880; 84100; 84155; 84156; 84165; 84439; 84443; 84484; 85014; 85025; 85610; 85730; 87040; 87086; 87186; 93005; 93010; 93306-TC; 93970-TC; 97116-GP; 97161-GP; 99285-25; G0463-25; J1644; U0003

== ENCOUNTER 2019-12-19 12:01 | Emergency (ER) | payer OTHER ==
--- NOTE | 2019-12-19 12:20 | RAPID ---
Physical Examination Vital Signs: 98.1F, 67bpm, 151/61, 18 breaths/min, 96% room air Constitutional: Yes: Well Nourished Eyes: Yes: WNL, EOM Intact HENT: Yes: WNL, Normocephalic, Other (laceration and bruise on forehead. blood on forehead.) Neck: Yes: WNL, Supple, Trachea Midline Musculoskeletal: Yes: WNL Extremities: Yes: WNL Edema: No Integumentary: Yes: WNL Neurological: Yes: WNL, Alert, Oriented ...Motor Strength: WNL Psychiatric: Yes: WNL Rapid Response - Rapid Response Assessment: Rapid Response called for the patient in the main lobby. Rapid Response team arrived at the main lobby at 11:56. Patient found fallen by the elevators with a small laceration on his forehead above his eyebrows and a small amount of blood from the laceration. Bruising and swelling where the patient hit his head. Patient is responsive and not confused. Patient taken to the ED.
[2019-12-19 12:42] VITALS: BMI 32.7
--- NOTE | 2019-12-19 13:11 | PDOC ---
History of Present Illness - General Chief Complaint: Injury Stated Complaint: FALL Time Seen by Provider: 12/19/19 13:07 Past History - Medical History Allergies/Adverse Reactions: Allergies Allergy/AdvReac Type Severity Reaction Status Date / Time NO Inhibitors Allergy Unknown Verified 12/10/19 09:33 lisinopril AdvReac Cough Verified 12/10/19 09:33 Home Medications: Ambulatory Orders Omeprazole 40 mg PO DAILY 09/28/19 Carvedilol 12.5 mg PO Q12H 12/10/19 Clopidogrel Bisulfate [Clopidogrel] 75 mg PO DAILY 12/10/19 Cyanocobalamin [Vitamin B12 -] 1 tab PO DAILY 12/10/19 Ferrous Sulfate [Iron] 325 mg PO DAILY 12/10/19 Hydralazine HCl 25 mg PO BID 12/10/19 Isosorbide Dinitrate [Isordil] 10 mg PO BID 12/10/19 Rosuvastatin [Crestor -] 20 mg PO HS 12/10/19 Mupirocin Ointment [Bactroban 2% Ointment -] 1 applic TP BID applic 12/14/19 Furosemide 40 mg PO DAILY #10 tablet 12/15/19 Anemia: Yes Asthma: No Cancer: No Cardiac Disorders: No CVA: No COPD: No CHF: Yes (quad bypass 3 cardiac stents) Dementia: No Diabetes: Yes GI Disorders: No Disorders: Yes (kidney function) HTN: Yes Hypercholesterolemia: Yes Liver Disease: No Seizures: No Thyroid Disease: No - Surgical History Abdominal Surgery: Yes (l ing hernia) Appendectomy: No Cardiac Surgery: Yes Cholecystectomy: No Lung Surgery: No Neurologic Surgery: No Orthopedic Surgery: Yes (left foot , great toe amputation, acl and meniscus repair 1994) - Psycho-Social/Smoking History Smoking History: Never smoked Have you smoked in the past 12 months: No If you are a former smoker, when did you quit?: 12yrs old stopped - Substance Abuse Hx (Audit-C & DAST Scrn) How often the patient has a drink containing alcohol: Never Score: In Men: 4 or > Positive; In Women: 3 or > Positive: 0 Screen Result (Pos requires Nsg. Audit-10AR): Negative *Physical Exam - Vital Signs Last Vital Signs Temp Pulse Resp BP Pulse Ox 98.1 F 66 20 151/61 98 12/19/19 12:05 12/19/19 12:05 12/19/19 12:05 12/19/19 12:05 12/19/19 12:05 Medical Decision Making - Medical Decision Making 12/19/19 13:10 HPI: 69yo M hx DM, HTN, CAD s/p bypass 1996 (Plavix), CHF, CKD, anemia, and recent admission for CHF exacerbation from 12/09-12/15/19 brought to ED by rapid response for unwitnessed fall with head injury at 1156. 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 Denies syncope, prodromal sx, CP, lightheadedness, SOB, vision changes, numbness/tingling, weakness, confusion, difficulty walking or talking, back pain, neck pain, hip pain, abdominal pain, N/V, other injuries. Last tetanus 2 years ago. "Rapid Response called for the patient in the main lobby. Rapid Response team arrived at the main lobby at 11:56. Patient found fallen by the elevators with a small laceration on his forehead above his eyebrows and a small amount of blood from the laceration. Bruising and swelling where the patient hit his head. Patient is responsive and not confused. Patient taken to the ED." ROS: Constitutional: Positive for fall Negative for chills, fever, fatigue, diaphoresis. HENT: Positive for forehead lac. Negative for sore throat, rhinorrhea, congestion. Eyes: Negative for visual disturbance. Respiratory: Negative for shortness of breath, cough, and wheezing. Cardiovascular: Negative for chest pain, palpitations, and leg swelling. Gastrointestinal: Negative for abdominal pain, blood in stool, constipation, diarrhea, nausea, and vomiting. Genitourinary: Negative for dysuria, flank pain, and hematuria. Musculoskeletal: Negative for myalgias, back pain, and neck pain. Skin: Negative for rash. Neurological: Negative for light-headedness, dizziness, vertigo, syncope, weakness, numbness and headaches. Psychiatric/Behavioral: Negative for behavioral problems and confusion. PE: Gen: Alert, NAD, comfortable-appearing. HEENT: PERRL, EOMI, MMM, NC, hematoma with overlying linear 1cm lac to L eyebrow. No conjunctival pallor. Sclera are non-icteric. Oropharynx is clear. CV: Regular rate and rhythm. No murmurs, rubs, or gallops. PULM: No resp distress. CTAB, no wheezes, rales, or rhonchi. ABD: soft, NT/ND, no rebound tenderness or guarding, no CVA tenderness. BACK: No TTP of c/t/l-spine. No step-offs or deformities. MSK: No bony deformities. 2+ pulses in all extremities. NEURO: AAOx3. PERRL. CN 2-12 intact. 5/5 strength in all extremities. Sensation to light touch intact in all extremities. EXTREMITIES: No cyanosis. No clubbing. No edema. No calf tenderness. Wounds on BLEs covered by dressings without bleeding or purulence. PSYCH: Normal mood and thought pattern. SKIN: Warm and dry. Normal capillary refill. No rashes. No jaundice. MDM: 69yo M hx DM, HTN, CAD s/p bypass 1996 (Plavix), CHF, CKD, anemia, and recent admission for CHF exacerbation from 12/09-12/15/19 brought to ED by rapid response for unwitnessed fall with head injury at 1156. Hemodynamically stable, afebrile, neurologically intact. Mechanical fall - no concern for syncope or seizure. Rule out fractures, dislocations, and ICH with imaging. No indication for labs. EKG from this AM reviewed. Recent labs reviewed. -CTH/c-spine/face -lac cleaned and repaired with dermabond -wound care: spoke with them, will see pt when discharged today -dispo: likely d/c home 12/19/19 15:27 CTs reviewed - no acute pathology No indication for observation due to very low risk of delayed bleed on plavix. Will discharge home to wound care upstairs with PCP f/u. Return precautions g iven. Pt understands all discharge instructions and all questions were answered. Discharge - Discharge Information Problems reviewed: Yes Clinical Impression/Diagnosis: Fall, Forehead laceration, Head injury Condition: Improved Disposition: HOME - Admission No - Follow up/Referral Referrals: ON STAFF,NOT [Primary Care Provider] - - Patient Discharge Instructions Patient Printed Discharge Instructions: DI for Laceration Repair With Dermabond Additional Instructions: Your laceration (cut) was repaired with dermabond glue. Keep it clean and dry. Your CT scans of your brain, neck, and face showed no fracture or bleed. Follow-up with your primary care doctor within 1 week. Return to the Emergency Department for any vomiting, weakness, difficulty walking, confusion, or any other new or concerning symptoms. Also return for any signs of infection of your cut including fever, chills, pus drainage, or redness. - Post Discharge Activity
--- NOTE | 2019-12-19 14:23 | PDOC ---
Documentation entered by Pee Flores SCRIBE, acting as scribe for Ceasar Heredia MD. Ceasar Heredia MD: This documentation has been prepared by the Sandra ramirez Angel, SCRIBE, under my direction and personally reviewed by me in its entirety. I confirm that the documentation accurately reflects all work, treatment, procedures, and medical decision making performed by me. Attending Attestation - Resident Resident Name: Lisa Rashid - ED Attending Attestation I have performed the following: I have examined & evaluated the patient, The case was reviewed & discussed with the resident, I agree w/resident's findings & plan, Exceptions are as noted - HPI HPI: 12/19/19 13:43 The patient is a 69 year old male with a significant past medical history of DM, HTN, CAD s/p bypass 1996 (Plavix), CHF, CKD, anemia, and recent admission for CHF exacerbation from 12/09-12/15/19 who presents to the ED s/p mechanical fall at 11:56. 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 Denies LOC. Denies CP/SOB/palpitations/lightheadedness. A rapid response was called, and pt was helped to his feet. He was able to ambulate afterwards. - Physicial Exam PE: 12/19/19 14:30 See resident exam - Medical Decision Making 12/19/19 14:30 69 M with mechanical fall. - CT head/c-spine 12/19/19 15:33 CTs unremarkable Pt is well appearing, with normal vitals. Clinically stable for DC at this time. I discussed the physical exam findings, ancillary test results and final diagnoses with the patient. I answered all of the patient's questions. The patient was satisfied with the care received and felt comfortable with the discharge plan and treatment plan. The patient agrees to follow up with the primary care physician within 24-72 hours. Please note this patient was evaluated during the COVID-19 crisis with the presidential [place] Act Declaration and the [place] governor executive order number 202. He/she was evaluated and clinical decisions were made relative to healthcare system resources as well as clinical picture during a pandemic crisis situation. Discharge - Discharge Information Problems reviewed: Yes Clinical Impression/Diagnosis: Fall, Forehead laceration, Head injury Condition: Improved Disposition: HOME - Follow up/Referral Referrals: ON STAFF,NOT [Primary Care Provider] - - Patient Discharge Instructions Patient Printed Discharge Instructions: DI for Laceration Repair With Dermabond Additional Instructions: Your laceration (cut) was repaired with dermabond glue. Keep it clean and dry. Your CT scans of your brain, neck, and face showed no fracture or bleed. Follow-up with your primary care doctor within 1 week. Return to the Emergency Department for any vomiting, weakness, difficulty walking, confusion, or any other new or concerning symptoms. Also return for any signs of infection of your cut including fever, chills, pus drainage, or redness. - Post Discharge Activity
[2019-12-19 15:40] VITALS: BP 147/65; PULSE 70; TEMP 98.2
== END 2019-12-19 15:48 | disposition home or self-care (01) ==
LOC: JER 12:01
DX: S01.81XA Laceration without foreign body of other part of head, initial encounter (principal); S09.90XA Unspecified injury of head, initial encounter
CPT/HCPCS: 70450-TC; 70486-TC; 72125-TC; 99284-25

== ENCOUNTER 2020-01-05 10:13 | Observation (INO) | payer OTHER ==
[2020-01-05 10:19] VITALS: BMI 33.0
[2020-01-05] MEDS ORDERED: ACETAMINOPHEN 1000 MG/100 ML VIAL (NON FORMULARY) IVPB ONE (11:33)
[2020-01-05] MEDS ORDERED: LIDOCAINE 5% TOPICAL PATCH TP ONE (11:33)
--- NOTE | 2020-01-05 11:40 | PDOC ---
History of Present Illness - General Chief Complaint: Pain, Acute Stated Complaint: BACK PAIN - History of Present Illness Initial Comments: The pt is a 69M w/ a history of DM, CAD s/p CABG, HTN, HLD, BLE chronic wounds who presents for evaluation of approximately 1 week of worsening ROWELL/lightheadedness with exertion. The pt reports he previously was able to walk through his house and store without rest with a walker and now can only walk several steps before becoming tired. He denies vision changes, chest pain, trouble breathing, abdominal pain, N/ V/C/D, dysuria, hematuria Pt also reports 2+ weeks of R lower back pain that occurred after a fall. The pt reports falling forward but never directly injuring his back. He reports constant R lower back pain that is non-radiating, worse with movement/laying/touch, alleviated by sitting. He tried percocet, Tylenol w/ minimal relief. Pt has been seen for PCP for pain. Denies fevers/chills, cough, sick contacts 01/05/20 11:34 Past History - Medical History Allergies/Adverse Reactions: Allergies Allergy/AdvReac Type Severity Reaction Status Date / Time NO Inhibitors Allergy Unknown Verified 01/05/20 10:52 lisinopril AdvReac Cough Verified 01/05/20 10:52 Home Medications: Ambulatory Orders Omeprazole 40 mg PO DAILY 09/28/19 Carvedilol 12.5 mg PO Q12H 12/10/19 Clopidogrel Bisulfate [Clopidogrel] 75 mg PO DAILY 12/10/19 Cyanocobalamin [Vitamin B12 -] 1 tab PO DAILY 12/10/19 Ferrous Sulfate [Iron] 325 mg PO DAILY 12/10/19 Hydralazine HCl 25 mg PO BID 12/10/19 Isosorbide Dinitrate [Isordil] 10 mg PO BID 12/10/19 Rosuvastatin [Crestor -] 20 mg PO HS 12/10/19 Mupirocin Ointment [Bactroban 2% Ointment -] 1 applic TP BID applic 12/14/19 Furosemide 40 mg PO DAILY #10 tablet 12/15/19 Tramadol HCl 50 mg PO PRN 01/05/20 Lidocaine 5% Patch [Lidoderm -] 1 patch TP DAILY #30 patch 01/07/20 Anemia: Yes Asthma: No Cancer: No Cardiac Disorders: No CVA: No COPD: No CHF: Yes (quad bypass 3 cardiac stents) Dementia: No Diabetes: Yes GI Disorders: No Disorders: Yes (kidney function) HTN: Yes Hypercholesterolemia: Yes Liver Disease: No Seizures: No Thyroid Disease: No Other medical history: B/L wounds, - Surgical History Abdominal Surgery: Yes (l ing hernia) Appendectomy: No Cardiac Surgery: Yes Cholecystectomy: No Lung Surgery: No Neurologic Surgery: No Orthopedic Surgery: Yes (left foot , great toe amputation, acl and meniscus repair 1994) - Immunization History Immunization Up to Date: Yes - Psycho-Social/Smoking History Smoking History: Never smoked Have you smoked in the past 12 months: No If you are a former smoker, when did you quit?: 12yrs old stopped Information on smoking cessation initiated: No - Substance Abuse Hx (Audit-C & DAST Scrn) How often the patient has a drink containing alcohol: Never Score: In Men: 4 or > Positive; In Women: 3 or > Positive: 0 Screen Result (Pos requires Nsg. Audit-10AR): Negative In the last yr the pt used illegal drug/Rx for NonMed reason: No Score: Yes response is considered Positive: 0 Screen Result (Positive result requires Nsg. DAST-10): Negative Review of Systems - Review of Systems Able to Perform ROS?: Yes Comments:: GENERAL/CONSTITUTIONAL: No fever or chills HEAD, EYES, EARS, NOSE AND THROAT: No change in vision. No change in hearing. No sore throat CARDIOVASCULAR: No chest pain RESPIRATORY: Denies cough, hemoptysis GASTROINTESTINAL: No nausea, vomiting, diarrhea or constipation GENITOURINARY: No dysuria, frequency, or change in urination MUSCULOSKELETAL: +R lower back pain SKIN: No rash NEUROLOGIC: No headache, vertigo, loss of consciousness, or change in strength/s ensation ENDOCRINE: No increased thirst. No abnormal weight change HEMATOLOGIC/LYMPHATIC: +anemia ALLERGIC/IMMUNOLOGIC: No hives or skin allergy 01/05/20 11:38 Is the patient limited Trinidadian proficient: No *Physical Exam - Vital Signs Last Vital Signs Temp Pulse Resp BP Pulse Ox 98.7 F 63 20 145/73 97 01/05/20 10:14 01/05/20 10:14 01/05/20 10:14 01/05/20 10:14 01/05/20 10:14 - Physical Exam GENERAL: Awake, alert, and oriented to person/place/time, in no acute distress HEAD: No signs of trauma, normocephalic, atraumatic EYES: PERRLA, EOMI, sclera anicteric, conjunctiva clear ENT: Hearing grossly normal, nares patent, oropharynx clear without exudates. Moist mucosa LUNGS: No distress, speaks in full sentences, clear to auscultation bilaterally BACK: R paraspinous TTP, no midline TTP, no step-offs; no wounds/abrasions HEART: Regular rate and rhythm, normal S1 and S2, no murmurs appreciated, peripheral pulses normal and equal bilaterally ABDOMEN: Soft, nontender, normoactive bowel sounds. No guarding, no rebound EXTREMITIES: Normal inspection, Normal range of motion, no edema. No clubbing or cyanosis NEUROLOGICAL: Cranial nerves II through XII grossly intact. Normal speech, normal gait, no focal sensorimotor deficits SKIN: Warm, Dry 01/05/20 11:39 ED Treatment Course - LABORATORY CBC & Chemistry Diagram: 01/07/20 12:00 01/07/20 12:00 - RADIOLOGY Radiology Studies Ordered: Category Date Time Status CHEST X-RAY PORTABLE* [RAD] Stat Radiology 01/05/20 11:33 Ordered SPINE-LUMBAR SACRAL [RAD] Stat Radiology 01/05/20 11:33 Ordered Medical Decision Making - Medical Decision Making The pt is a 69M w/ a history of DM, CAD s/p CABG, HTN, HLD, BLE chronic wounds who presents for evaluation of approximately 1 week of worsening ROWELL/lightheadedness with exertion. Ddx: ACS, HF, consider PNA/viral infection, muscular strain, not likely spinal injury/nerve injury or pelvic injury ED Course CMP, CBC, Trop I, BNP ECG CXR Tylenol and Lidoderm patch for pain 01/05/20 11:40 No leukocytosis Anemia noted, will not transfuse at this time Lytes overall unremarkable Cr elevated but at baseline Trop I neg BNP 9000s from 7000s ECG w/ 1st degree AV block w/ frequent PVCs; RBBB; no acute ischemic changes 01/05/20 12:53 Plan for admission for ROWELL/ACS Pt signed out to [facility] Admitting Discharge - Discharge Information Problems reviewed: Yes Clinical Impression/Diagnosis: ROWELL (dyspnea on exertion) Lower back pain Qualifiers: Chronicity: acute Back pain laterality: right Sciatica presence: without sciatica Qualified Code(s): M54.5 - Low back pain CKD (chronic kidney disease) Qualifiers: Chronic kidney disease stage: unspecified stage Qualified Code(s): N18.9 - Chronic kidney disease, unspecified Anemia Qualifiers: Anemia type: unspecified type Qualified Code(s): D64.9 - Anemia, unspecified Condition: Stable - Admission Yes - Follow up/Referral - Patient Discharge Instructions - Post Discharge Activity
[2020-01-05] MEDS ORDERED: ACETAMINOPHEN INJECTION 100 ML IVPB ONE (11:48)
[2020-01-05] MEDS ORDERED: LIDOCAINE 5% TOPICAL PATCH ONE (11:48)
[2020-01-05 12:27] LABS: BASO % 1.4 % (0-2.0); EOS % 3.7 % (0-4.5); HEMATOCRIT 25.9 % (35.4-49); HEMOGLOBIN 8.5 GM/dL (11.7-16.9); MCH 33.4 pg (25.7-33.7); MEAN CELL VOLUME 101.2 fl (80-96); MONO % 10.9 % (3.8-10.2); PLATELET COUNT 114 K/MM3 (134-434); RBC 2.56 M/mm3 (4.00-5.60); RDW 16.3 % (11.9-15.9); WHITE BLOOD COUNT 5.4 K/mm3 (4.0-10.0)
[2020-01-05 12:50] LABS: ALBUMIN 3.5 g/dl (3.4-5.0); ALK PHOS 79 U/L (45-117); ANION GAP 11 MMOL/L (8-16); CALCIUM 8.7 mg/dL (8.5-10.1); CHLORIDE 103 mmol/L (98-107); CO2 23 mmol/L (21-32); CREATININE 2.7 mg/dL (0.55-1.3); GLUCOSE,RANDOM 154 mg/dL (74-106); SGOT/AST 19 U/L (15-37); SGPT/ALT 18 U/L (13-61); SODIUM 137 mmol/L (136-145); TOT PROT 7.1 g/dl (6.4-8.2)
[2020-01-05] MEDS ORDERED: traMADol HCL 50 MG TABLET PO PRN (13:30)
--- NOTE | 2020-01-05 13:30 | HP ---
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, 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 and primary care's are in [facility] on the [facility], patient had a fall on December 19, 2019 X [facility] hallway due to loss of balance, hit his right lower back since then patient has right lower back pain, patient was discharged from the ED after negative CT head today presented with one-week history of gradually worsening shortness of breath dyspnea on exertion and back pain since he had a fall on 12/19/2019 as mentioned above also complains of worsening lower extremity swelling, patient claims that he is compliant with the medication, no history of chest pain, palpitation, dizziness syncope nausea vomiting diarrhea EKG in the ED shows multiple PVCs considering multiple risk factors admitted for further evaluation and management. Patient denies any fever/chills/. History Source: Patient - Past Medical History Cardiovascular: Yes: HTN, Hyperlipdemia Renal/: Yes: Renal Inusuff - Past Surgical History Past Surgical History: Yes: Bypass - Smoking History Smoking history: Never smoked Have you smoked in the past 12 months: No If you are a former smoker, when did you quit?: 12yrs old stopped - Alcohol/Substance Use Hx Alcohol Use: No - Social History Usual Living Arrangement: Yes: Alone History of Recent Travel: No Home Medications - Allergies Allergies/Adverse Reactions: Allergies Allergy/AdvReac Type Severity Reaction Status Date / Time NO Inhibitors Allergy Unknown Verified 01/05/20 10:52 lisinopril AdvReac Cough Verified 01/05/20 10:52 - Home Medications Home Medications: Ambulatory Orders Omeprazole 40 mg PO DAILY 09/28/19 Carvedilol 12.5 mg PO Q12H 12/10/19 Clopidogrel Bisulfate [Clopidogrel] 75 mg PO DAILY 12/10/19 Cyanocobalamin [Vitamin B12 -] 1 tab PO DAILY 12/10/19 Ferrous Sulfate [Iron] 325 mg PO DAILY 12/10/19 Hydralazine HCl 25 mg PO BID 12/10/19 Isosorbide Dinitrate [Isordil] 10 mg PO BID 12/10/19 Rosuvastatin [Crestor -] 20 mg PO HS 12/10/19 Mupirocin Ointment [Bactroban 2% Ointment -] 1 applic TP BID applic 12/14/19 Furosemide 40 mg PO DAILY #10 tablet 12/15/19 Tramadol HCl 50 mg PO PRN 01/05/20 Family Medical History Family Hx Cardiac Disorders: Father ( at age 54) Family Hx Diabetes: Mother Review of Systems - Review of Systems Constitutional: denies: Chills, Diaphoresis, Fever Eyes: denies: Blind Spots, Blurred Vision, Double Vision HENT: denies: Difficult Swallowing, Ear Discharge, Ear Pain Neck: denies: Decreased ROM, Lumps, Pain on Movement Cardiovascular: reports: Edema, Shortness of Breath. denies: Chest Pain Respiratory: reports: Exercise Intolerance, SOB on Exertion Gastrointestinal: denies: Abdominal Pain, Bloating, Constipation, Diarrhea Genitourinary: denies: Burning, Discharge, Dysuria Breasts: reports: Discharge from Nipple. denies: Breast Implants Musculoskeletal: reports: Back Pain, Other Integumentary: reports: Blister, Other (Chronic venous stasis ulcer) Hematology/Lymphatic: reports: Easily Bruised Physical Examination Vital Signs: Vital Signs Temperature 98.7 F 01/05/20 10:14 Pulse Rate 63 01/05/20 10:14 Respiratory Rate 20 01/05/20 10:14 Blood Pressure 145/73 01/05/20 10:14 O2 Sat by Pulse Oximetry (%) 97 01/05/20 10:14 General: Elderly man, comfortable, not in distress HEENT mucous membranes moist, no anemia, no jaundice, PERRLA, no nystagmus Neck: No JVD, supple, no bruit, thyroid palpably normal, normal carotid pulsations. Chest: Nontender, clear to auscultation bilaterally CVS: S1-S2 regular no murmur/gallop/rub Abdomen: Nondistended, soft, bowel sounds present. Extremities: Bilateral edema, legs are in elastic stockings compression bandage. 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 , no gross motor sensory deficit Labs: CBC,CMP WBC 5.4 K/mm3 (4.0-10.0) 01/05/20 11:55 RBC 2.56 M/mm3 (4.00-5.60) L 01/05/20 11:55 Hgb 8.5 GM/dL (11.7-16.9) L 01/05/20 11:55 Hct 25.9 % (35.4-49) L D 01/05/20 11:55 MCV 101.2 fl (80-96) H 01/05/20 11:55 MCH 33.4 pg (25.7-33.7) 01/05/20 11:55 MCHC 33.0 g/dl (32.0-35.9) 01/05/20 11:55 RDW 16.3 % (11.9-15.9) H 01/05/20 11:55 Plt Count 114 K/MM3 (134-434) L D 01/05/20 11:55 MPV 10.0 fl (7.5-11.1) 01/05/20 11:55 Absolute Neuts (auto) 3.8 K/mm3 (1.5-8.0) 01/05/20 11:55 Neutrophils % 69.0 % (42.8-82.8) 01/05/20 11:55 Lymphocytes % 15.0 % (8-40) D 01/05/20 11:55 Monocytes % 10.9 % (3.8-10.2) H 01/05/20 11:55 Eosinophils % 3.7 % (0-4.5) 01/05/20 11:55 Basophils % 1.4 % (0-2.0) 01/05/20 11:55 Nucleated RBC % 0 % (0-0) 01/05/20 11:55 Sodium 137 mmol/L (136-145) 01/05/20 11:55 Potassium 5.0 mmol/L (3.5-5.1) 01/05/20 11:55 Chloride 103 mmol/L (98-107) 01/05/20 11:55 Carbon Dioxide 23 mmol/L (21-32) 01/05/20 11:55 Anion Gap 11 MMOL/L (8-16) 01/05/20 11:55 BUN 69.0 mg/dL (7-18) H 01/05/20 11:55 Creatinine 2.7 mg/dL (0.55-1.3) H 01/05/20 11:55 Est GFR (CKD-EPI)AfAm 26.48 01/05/20 11:55 Est GFR (CKD-EPI)NonAf 22.85 01/05/20 11:55 Random Glucose 154 mg/dL (74-106) H 01/05/20 11:55 Calcium 8.7 mg/dL (8.5-10.1) 01/05/20 11:55 Total Bilirubin 1.0 mg/dL (0.2-1) 01/05/20 11:55 AST 19 U/L (15-37) 01/05/20 11:55 ALT 18 U/L (13-61) 01/05/20 11:55 Alkaline Phosphatase 79 U/L (45-117) 01/05/20 11:55 Troponin I < 0.02 ng/ml (0.00-0.05) 01/05/20 11:55 B-Natriuretic Peptide 9096.9 pg/ml (5-125) H 01/05/20 11:55 Total Protein 7.1 g/dl (6.4-8.2) 01/05/20 11:55 Albumin 3.5 g/dl (3.4-5.0) 01/05/20 11:55 Imaging - Results Chest X-ray: Report Reviewed (Mild pulmonary congestion) X-ray: Report Reviewed (Lumbosacral spine: Report awaited) Cat Scan: Report Reviewed (Lumbar spine: Pending) EKG: Report Reviewed (Sinus rhythm with frequent PVCs with ventricular rate of 64, 1st degree AV block w/ frequent PVCs; RBBB, TWI and STD in I and II which are the same as prior EKG from 12/10/19) Problem List - Problems (1) Heart failure, diastolic, with acute decompensation Assessment/Plan: Patient has history of heart failure with reduced ejection fraction last echo was 1 month ago, will hold p.o. Lasix start IV Lasix, resume all home medications. Problems reviewed: Yes Code(s): I50.33 - ACUTE ON CHRONIC DIASTOLIC (CONGESTIVE) HEART FAILURE (2) Type 2 diabetes mellitus Assessment/Plan: Patient has history of diabetes mellitus last hemoglobin A1c was low we will continue correction dose insulin diabetic diet. Problems reviewed: Yes Code(s): E11.9 - TYPE 2 DIABETES MELLITUS WITHOUT COMPLICATIONS (3) Chronic venous hypertension with ulcer Assessment/Plan: Chronic venous stasis ulcer normal CBC normal will follow-up wound care recommendations. Problems reviewed: Yes Code(s): I87.319 - CHRONIC VENOUS HYPERTENSION W ULCER OF UNSP LOW EXTRM; L97.909 - NON-PRS CHRONIC ULC UNSP PRT OF UNSP LOW LEG W UNSP SEVERITY (4) Hypertension Assessment/Plan: Well-controlled resume all home medications Problems reviewed: Yes Code(s): I10 - ESSENTIAL (PRIMARY) HYPERTENSION (5) CAD (coronary artery disease) Assessment/Plan: Patient has history of CAD status post CABG in 1996, recent echo shows normal ejection fraction no regional wall motion abnormality, at present denies any chest pain, first troponin is negative we will follow-up serial troponin I, telemetry monitoring as patient has multiple PVCs will consider cardiology consultation Problems reviewed: Yes Code(s): I25.10 - ATHSCL HEART DISEASE OF [place] CORONARY ARTERY W/O ANG PCTRS (6) Stage 3b chronic kidney disease Assessment/Plan: Patient has history of diabetic nephropathy CKD stage IIIb renal functions are at baseline considering diuretic will follow-up renal consult recommendations. Problems reviewed: Yes Code(s): N18.3 - CHRONIC KIDNEY DISEASE, STAGE 3 (MODERATE) (7) Chronic anemia Assessment/Plan: Patient has history of chronic anemia mild worsening we will follow-up serial H&H. Problems reviewed: Yes Code(s): D64.9 - ANEMIA, UNSPECIFIED (8) Dyslipidemia Assessment/Plan: Continue Crestor Problems reviewed: Yes Code(s): E78.5 - HYPERLIPIDEMIA, UNSPECIFIED (9) Back pain Assessment/Plan: Right lower back pain continue tramadol, follow-up x-ray lumbosacral spine, no clinical sign of spinal cord injury, lidocaine patch. Problems reviewed: Yes Code(s): M54.9 - DORSALGIA, UNSPECIFIED
[2020-01-05] MEDS ORDERED: FUROSEMIDE 40 MG/4 ML INJECTABLE VIAL IVPUSH ONE (13:38)
[2020-01-05] MEDS ORDERED: FUROSEMIDE 40 MG/4 ML INJECTABLE VIAL ONE (14:01)
--- NOTE | 2020-01-05 14:14 | PDOC ---
Documentation entered by Haritha Sevilla SCRIBE, acting as scribe for Cindy Bassett MD. Cindy Bassett MD: This documentation has been prepared by the Di ramirez Brenda, SCRIBE, under my direction and personally reviewed by me in its entirety. I confirm that the documentation accurately reflects all work, treatment, procedures, and medical decision making performed by me. Attending Attestation - Resident Resident Name: Jayme Boyd - ED Attending Attestation I have performed the following: I have examined & evaluated the patient, The case was reviewed & discussed with the resident, I agree w/resident's findings & plan, Exceptions are as noted - HPI HPI: 01/05/20 11:38 The patient is a 69 year old male with a significant PMH of DM, HTN, CAD s/p bypass 1996 (Plavix), CHF, CKD, anemia, and recent admission for CHF exacerbation from 12/09-12/15/19 who presents to the emergency department with 1 week of worsening ROWELL and lightheadedness which worsens with exertion, as well as inability to walk his baseline distance without stopping to rest. Also notes falling about 3 weeks ago with persistent right lumbar pain since that time, for which he also saw his PCP. The patient denies chest pain, shortness of breath, headache and dizziness. Denies fever, chills, nausea, vomiting, diarrhea and constipation. Denies dysuria, frequency, urgency and hematuria. Allergies: NKA Past surgical history: Social history: No reported hx of tobacco use, alcohol use or illicit drug use. PCP: Maravilla - Physicial Exam PE: GENERAL: elderly, pleasant, nontoxic-appearing, no distress, answers questions appropriately HEENT: PERRLA, EOMI, moist mucous membranes NECK/BACK: right lower lumbar paraspinous tenderness to palpation with no midline ttp, no spinal stepoff or deformity, no hematoma, full ROM, neck supple CARDIOVASCULAR: regular rate/rhythm, strong peripheral pulses, capillary refill <2 seconds, extremities wwp, no edema LUNGS/RESPIRATORY: no respiratory distress, CTAB GI/ABDOMEN: symmetric [id number], normoactive BS, soft, no ttp, no midline pulsatile masses : no CVA tenderness MSK/EXTREMITIES: no acute-appearing muscle atrophy, no acute deformity DERM/SKIN: warm and dry, no pallor, no jaundice, no rash, no pathologic- appearing bruising, no skin breakdown, no cuts, no lesions NEUROLOGICAL: GCS 15, CN II-XII grossly intact, 5/5 strength proximally and distally, no facial droop - Medical Decision Making 69YOM p/w SOB, ROWELL, lightheadednes, inability to walk his baseline distance without stopping, similar to his prior CHF exacerbation. Initial Vital Signs Temp Pulse Resp BP Pulse Ox 98.7 F 63 20 145/73 97 01/05/20 10:14 01/05/20 10:14 01/05/20 10:14 01/05/20 10:14 01/05/20 10:14 DDX IBNLT: very likely CHF exacerbation. Possible component of COPD, asthma, other lung disease, PNA/bronchitis, anemia, ACS, etc. Provider Orders Category Date Time Status ELECTROCARDIOGRAM [CARD] Stat Cardiology 01/05/20 11:16 Ordered Cardiac Monitoring Continuous Care 01/05/20 11:33 Active EKG needed NOW Care 01/05/20 11:16 Completed Isolation Precautions As directed Care 01/05/20 11:36 Active CBC WITH DIFFERENTIAL Stat Lab 01/05/20 11:55 Completed COMP METABOLIC PANEL Stat Lab 01/05/20 11:55 Completed COVID-19 Stat Lab 01/05/20 11:55 Received N-TERMINAL BNP Stat Lab 01/05/20 11:55 Completed TROPONIN I ([facility]) Stat Lab 01/05/20 11:55 Completed Acetaminophen Injection [Ofirmev Injection -] Medication 01/05/20 11:33 Discontinued 1,000 mg IVPB ONCE ONE Acetaminophen Injection [Ofirmev Injection -] 100 ml Medication 01/05/20 11:48 Discontinued IVPB UD Lidocaine 5% Patch [Lidoderm Patch -] Medication 01/05/20 11:48 Discontinued 1 patch .ROUTE .STK-MED ONE Lidocaine 5% Patch [Lidoderm Patch -] Medication 01/05/20 11:33 Discontinued 1 patch TP ONCE ONE Lidocaine Patch Removal [Lidoderm Patch Removal] Medication 01/05/20 22:00 Active 1 each MC DAILY@2200 IV Insert NOW Phy Order 01/05/20 11:33 Completed Medications Generic Name Dose Route Start Last Admin Trade Name Freq PRN Reason Stop Dose Admin Carvedilol 12.5 mg 01/05/20 22:00 Coreg - PO BID [facility] Clopidogrel Bisulfate 75 mg 01/06/20 10:00 Plavix - PO DAILY [facility] Cyanocobalamin 100 mcg 01/06/20 10:00 Vitamin B12 - PO DAILY [facility] Ferrous Sulfate 325 mg 01/06/20 10:00 Feosol - PO DAILY [facility] Hydralazine HCl 25 mg 01/05/20 22:00 Apresoline - PO BID [facility] Insulin Aspart 1 vial 01/05/20 16:30 Novolog Vial Sliding Scale - SQ TIDAC [facility] Protocol Isosorbide Dinitrate 10 mg 01/05/20 18:00 Isordil - PO BIDISORDIL [facility] Miscellaneous 1 each 01/05/20 22:00 Lidoderm Patch Removal MC DAILY@2200 [facility] Mupirocin 1 applic 01/05/20 22:00 Bactroban 2% Ointment - TP BID [facility] Pantoprazole Sodium 40 mg 01/06/20 10:00 Protonix - PO DAILY [facility] Rosuvastatin Calcium 20 mg 01/05/20 22:00 Crestor - PO HS [facility] Tramadol HCl 50 mg 01/05/20 13:30 Ultram - PO DAILY PRN PAIN LEVEL 7 - 10 Discontinued Medications Generic Name Dose Route Start Last Admin Trade Name Freq PRN Reason Stop Dose Admin Acetaminophen 1,000 mg 01/05/20 11:33 01/05/20 12:03 Ofirmev Injection - IVPB 01/05/20 11:34 1,000 mg ONCE ONE Administration Furosemide 40 mg 01/05/20 13:38 Lasix Injection - IVPUSH 01/05/20 13:39 ONCE ONE Furosemide Confirm 01/05/20 14:01 Lasix Injection - Administered 01/05/20 14:02 Dose 40 mg .ROUTE .STK-MED ONE Acetaminophen Confirm 01/05/20 11:48 Ofirmev Injection - Administered 01/05/20 11:49 Dose 100 mls @ ud IVPB .STK-MED ONE Lidocaine 1 patch 01/05/20 11:33 01/05/20 11:50 Lidoderm Patch - TP 01/05/20 11:34 1 patch ONCE ONE Administration Lidocaine Confirm 01/05/20 11:48 Lidoderm Patch - Administered 01/05/20 11:49 Dose 1 patch .ROUTE .STK-MED ONE Lab Results WBC 5.4 K/mm3 (4.0-10.0) 01/05/20 11:55 RBC 2.56 M/mm3 (4.00-5.60) L 01/05/20 11:55 Hgb 8.5 GM/dL (11.7-16.9) L 01/05/20 11:55 Hct 25.9 % (35.4-49) L D 01/05/20 11:55 MCV 101.2 fl (80-96) H 01/05/20 11:55 MCH 33.4 pg (25.7-33.7) 01/05/20 11:55 MCHC 33.0 g/dl (32.0-35.9) 01/05/20 11:55 RDW 16.3 % (11.9-15.9) H 01/05/20 11:55 Plt Count 114 K/MM3 (134-434) L D 01/05/20 11:55 MPV 10.0 fl (7.5-11.1) 01/05/20 11:55 Absolute Neuts (auto) 3.8 K/mm3 (1.5-8.0) 01/05/20 11:55 Neutrophils % 69.0 % (42.8-82.8) 01/05/20 11:55 Lymphocytes % 15.0 % (8-40) D 01/05/20 11:55 Monocytes % 10.9 % (3.8-10.2) H 01/05/20 11:55 Eosinophils % 3.7 % (0-4.5) 01/05/20 11:55 Basophils % 1.4 % (0-2.0) 01/05/20 11:55 Nucleated RBC % 0 % (0-0) 01/05/20 11:55 Sodium 137 mmol/L (136-145) 01/05/20 11:55 Potassium 5.0 mmol/L (3.5-5.1) 01/05/20 11:55 Chloride 103 mmol/L (98-107) 01/05/20 11:55 Carbon Dioxide 23 mmol/L (21-32) 01/05/20 11:55 Anion Gap 11 MMOL/L (8-16) 01/05/20 11:55 BUN 69.0 mg/dL (7-18) H 01/05/20 11:55 Creatinine 2.7 mg/dL (0.55-1.3) H 01/05/20 11:55 Est GFR (CKD-EPI)AfAm 26.48 01/05/20 11:55 Est GFR (CKD-EPI)NonAf 22.85 01/05/20 11:55 Random Glucose 154 mg/dL (74-106) H 01/05/20 11:55 Calcium 8.7 mg/dL (8.5-10.1) 01/05/20 11:55 Total Bilirubin 1.0 mg/dL (0.2-1) 01/05/20 11:55 AST 19 U/L (15-37) 01/05/20 11:55 ALT 18 U/L (13-61) 01/05/20 11:55 Alkaline Phosphatase 79 U/L (45-117) 01/05/20 11:55 Troponin I < 0.02 ng/ml (0.00-0.05) 01/05/20 11:55 B-Natriuretic Peptide 9096.9 pg/ml (5-125) H 01/05/20 11:55 Total Protein 7.1 g/dl (6.4-8.2) 01/05/20 11:55 Albumin 3.5 g/dl (3.4-5.0) 01/05/20 11:55 RAD/CHEST X-RAY PORTABLE* Portable chest: Cough. Pain. A single view of the chest has been submitted. Since 12/10/2019 at 1005 hours there is no significant change. Again noted is the large heart, normal aorta, normal adrienne, sternal sutures and clips and clear lungs. The angles are sharp. The soft tissues are intact. There are degenerative changes. Impression: No acute chest pathology. The Pt is unsafe for discharge at this time. They require further hospital observation, workup, and treatment. Pt needs IV meds 2/2 likely bowel edema as PO medications likely less effective. Admission per resident note. Heart Score/ECG Review #1 01/05/20 12:04 Sinus rhythm with frequent PVCs (which are new from last EKG), with ventricular rate of 64, sinus beats with normal axis, TWI and STD in I and II which are the same as prior EKG from 12/10/19 Discharge - Discharge Information Problems reviewed: Yes Clinical Impression/Diagnosis: ROWELL (dyspnea on exertion) Lower back pain Qualifiers: Chronicity: acute Back pain laterality: right Sciatica presence: without sc iatica Qualified Code(s): M54.5 - Low back pain CKD (chronic kidney disease) Qualifiers: Chronic kidney disease stage: unspecified stage Qualified Code(s): N18.9 - Chronic kidney disease, unspecified Anemia Qualifiers: Anemia type: unspecified type Qualified Code(s): D64.9 - Anemia, unspecified Condition: Guarded - Admission Yes - Follow up/Referral - Patient Discharge Instructions - Post Discharge Activity
--- NOTE | 2020-01-05 15:53 | CONSULT ---
Consult Consult Specialty:: Nephrology Reason for Consultation:: CKD - History of Present Illness Chief Complaint: back pain History of Present Illness: Pt is a 69 year old male with pmhx of ckd, htn, dm, anemia, cad who presents to the ER with back pain. He recently suffered a fall. I was called to evaluate him for CKD. He has long standing chronic kidney disease. He maintains outpt follow up. He is on lasix 40 mg daily at home. He is not compliant with diet including fluids and salt intake. He denies shortness of breath. He says he has chronic swelling in his legs. - History Source History Provided By: Patient - Past Medical History Cardio/Vascular: Yes: HTN, Hyperlipdemia Renal/: Yes: Renal Inusuff - Past Surgical History Past Surgical History: Yes: Bypass - Alcohol/Substance Use Hx Alcohol Use: No - Smoking History Smoking history: Never smoked Have you smoked in the past 12 months: No If you are a former smoker, when did you quit?: 12yrs old stopped - Social History History of Recent Travel: No Home Medications - Allergies Allergies/Adverse Reactions: Allergies Allergy/AdvReac Type Severity Reaction Status Date / Time NO Inhibitors Allergy Unknown Verified 01/05/20 10:52 lisinopril AdvReac Cough Verified 01/05/20 10:52 - Home Medications Home Medications: Ambulatory Orders Omeprazole 40 mg PO DAILY 09/28/19 Carvedilol 12.5 mg PO Q12H 12/10/19 Clopidogrel Bisulfate [Clopidogrel] 75 mg PO DAILY 12/10/19 Cyanocobalamin [Vitamin B12 -] 1 tab PO DAILY 12/10/19 Ferrous Sulfate [Iron] 325 mg PO DAILY 12/10/19 Hydralazine HCl 25 mg PO BID 12/10/19 Isosorbide Dinitrate [Isordil] 10 mg PO BID 12/10/19 Rosuvastatin [Crestor -] 20 mg PO HS 12/10/19 Mupirocin Ointment [Bactroban 2% Ointment -] 1 applic TP BID applic 12/14/19 Furosemide 40 mg PO DAILY #10 tablet 12/15/19 Tramadol HCl 50 mg PO PRN 01/05/20 Family Medical History Family History: Denies Family Hx Cardiac Disorders: Father ( at age 54) Family Hx Diabetes: Mother Review of Systems - Review of Systems Constitutional: reports: No Symptoms Eyes: reports: No Symptoms HENT: reports: No Symptoms Neck: reports: No Symptoms Cardiovascular: reports: No Symptoms Respiratory: reports: No Symptoms Gastrointestinal: reports: No Symptoms Genitourinary: reports: No Symptoms Musculoskeletal: reports: Back Pain Integumentary: reports: No Symptoms Neurological: reports: No Symptoms Endocrine: reports: No Symptoms Hematology/Lymphatic: reports: No Symptoms Psychiatric: reports: No Symptoms Physical Exam Vital Signs: Vital Signs Temperature 98.4 F 01/05/20 15:25 Pulse Rate 60 01/05/20 15:25 Respiratory Rate 15 01/05/20 15:25 Blood Pressure 135/76 01/05/20 15:25 O2 Sat by Pulse Oximetry (%) 96 01/05/20 15:25 Constitutional: Yes: Calm Eyes: Yes: Conjunctiva Clear HENT: Yes: Atraumatic Neck: Yes: Supple Cardiovascular: Yes: S1, S2 Respiratory: Yes: CTA Bilaterally Gastrointestinal: Yes: Normal Bowel Sounds, Soft Renal/: Yes: WNL Edema: Yes Edema: LLE: 2+, RLE: 2+ Neurological: Yes: Oriented Psychiatric: Yes: Oriented Labs: CBC, BMP 01/05/20 11:55 01/05/20 11:55 Assessment/Plan Current Medications Generic Name Dose Route Start Last Admin Trade Name Abrahamq PRN Reason Stop Dose Admin Carvedilol 12.5 mg 01/05/20 22:00 Coreg - PO BID [facility] Clopidogrel Bisulfate 75 mg 01/06/20 10:00 Plavix - PO DAILY [facility] Cyanocobalamin 100 mcg 01/06/20 10:00 Vitamin B12 - PO DAILY [facility] Ferrous Sulfate 325 mg 01/06/20 10:00 Feosol - PO DAILY [facility] Hydralazine HCl 25 mg 01/05/20 22:00 Apresoline - PO BID [facility] Insulin Aspart 1 vial 01/05/20 16:30 Novolog Vial Sliding Scale - SQ TIDAC [facility] Protocol Isosorbide Dinitrate 10 mg 01/05/20 18:00 Isordil - PO BIDISORDIL [facility] Lidocaine 1 patch 01/06/20 10:00 Lidoderm Patch - TP DAILY [facility] Miscellaneous 1 each 01/05/20 22:00 Lidoderm Patch Removal DAILY@2200 [facility] Miscellaneous 1 each 01/05/20 22:00 Lidoderm Patch Removal MC DAILY@2200 [facility] Mupirocin 1 applic 01/05/20 22:00 Bactroban 2% Ointment - TP BID [facility] Pantoprazole Sodium 40 mg 01/06/20 10:00 Protonix - PO DAILY [facility] Rosuvastatin Calcium 20 mg 01/05/20 22:00 Crestor - PO HS [facility] Tramadol HCl 50 mg 01/05/20 13:30 Ultram - PO DAILY PRN PAIN LEVEL 7 - 10 Impression 1. CKD 2. back pain 3. hld 4. htn 5. dm 6. proteinuria 7. pancytopenia on last admission, improving Plan - restart lasix - monitor volume status - follow cxr - avoid nsaids - pt was on 40 mg of lasix daily at home, may need higher dose, will follow - renal function stable
[2020-01-05] MEDS: FUROSEMIDE 40 MG TABLET (FP) PO SCH (17:30)
[2020-01-05] MEDS: INSULIN SLIDING SCALE (NOVOLOG) 1 VIAL SQ SCH (17:34)
[2020-01-05] MEDS ORDERED: PT OWN MED DRAWER 7, Y5N ONE (18:33)
[2020-01-05 19:42] LABS: BASO % 1.5 % (0-2.0); EOS % 4.1 % (0-4.5); HEMATOCRIT 25.4 % (35.4-49); HEMOGLOBIN 8.3 GM/dL (11.7-16.9); LYMPH % 18.7 % (8-40); MCH 33.5 pg (25.7-33.7); MCHC 32.8 g/dl (32.0-35.9); MEAN PLT VOLUME 10.3 fl (7.5-11.1); MONO % 12.2 % (3.8-10.2); NEUT % 63.5 % (42.8-82.8); PLATELET COUNT 97 K/MM3 (134-434); RBC 2.49 M/mm3 (4.00-5.60); RDW 16.6 % (11.9-15.9); WHITE BLOOD COUNT 4.7 K/mm3 (4.0-10.0)
[2020-01-05 20:10] LABS: CHOLESTEROL 123 mg/dL (50-200); HDL CHOLESTEROL 33 mg/dL (40-60); LDL CHOLESTEROL (ONLY SJRH) 70 mg/dL (5-100); TRIGLYCERIDES 87 mg/dL (0-150)
[2020-01-05] MEDS: ISOSORBIDE DINITRATE 10 MG TABLET (FP) PO SCH (20:58)
[2020-01-05] MEDS: ROSUVASTATIN CA 20 MG TABLET (FP) PO SCH (21:01)
[2020-01-05] MEDS: CARVEDILOL 12.5 MG TABLET (FP) PO SCH (21:01)
[2020-01-05] MEDS: hydrALAZINE HCL 25 MG TABLET (FP) PO SCH (21:01)
[2020-01-05] MEDS ORDERED: LIDOCAINE PATCH REMOVAL MC SCH (22:00)
[2020-01-06] MEDS: MUPIROCIN 2% TOPICAL OINTMENT 22 GM TUBE TP SCH ×3 (01:10→21:45)
[2020-01-06] MEDS: LIDOCAINE PATCH REMOVAL MC SCH ×2 (01:12→21:48)
[2020-01-06] MEDS ORDERED: ACETAMINOPHEN 325 MG TABLET (FP) PO ONE (05:50)
[2020-01-06] MEDS: INSULIN SLIDING SCALE (NOVOLOG) 1 VIAL SQ SCH ×3 (06:15→16:59)
[2020-01-06 07:43] LABS: BASO % 1.4 % (0-2.0); EOS % 4.3 % (0-4.5); HEMATOCRIT 27.4 % (35.4-49); LYMPH % 19.5 % (8-40); MCH 33.3 pg (25.7-33.7); MCHC 32.7 g/dl (32.0-35.9); MEAN CELL VOLUME 101.7 fl (80-96); MEAN PLT VOLUME 10.7 fl (7.5-11.1); MONO % 10.6 % (3.8-10.2); NEUT % 64.2 % (42.8-82.8); PLATELET COUNT 96 K/MM3 (134-434); RBC 2.69 M/mm3 (4.00-5.60); RDW 16.5 % (11.9-15.9); WHITE BLOOD COUNT 4.7 K/mm3 (4.0-10.0)
[2020-01-06 07:45] LABS: ALBUMIN 3.6 g/dl (3.4-5.0); ALK PHOS 76 U/L (45-117); ANION GAP 11 MMOL/L (8-16); BLOOD UREA NITROGEN 71.5 mg/dL (7-18); CALCIUM 8.9 mg/dL (8.5-10.1); CHLORIDE 102 mmol/L (98-107); CO2 25 mmol/L (21-32); CREATININE 2.9 mg/dL (0.55-1.3); GLUCOSE,RANDOM 181 mg/dL (74-106); MAGNESIUM 2.6 mg/dL (1.8-2.4); POTASSIUM 4.9 mmol/L (3.5-5.1); SGOT/AST 15 U/L (15-37); SGPT/ALT 18 U/L (13-61); SODIUM 138 mmol/L (136-145); TOT PROT 7.1 g/dl (6.4-8.2)
[2020-01-06] MEDS ORDERED: PT OWN MED DRAWER 7, Y5N ONE ×2 (07:50→08:26)
[2020-01-06] MEDS ORDERED: traMADol HCL 50 MG TABLET PO PRN (09:10)
--- NOTE | 2020-01-06 09:30 | CON.CARD ---
Consult Consult Specialty:: Cardiology Referred by:: Hospitalist Service Reason for Consultation:: Cardiac evaluation - History of Present Illness Chief Complaint: Generalized weakness History of Present Illness: Patient is a 69 year old male with underlying history of CAD s/p CABG (1996 at [facility]), s/p PCI/stent, angina pectoris, HTN, hypercholesterolemia, PAD s/p toe amputation and DM who presented wuith i ncreased weakness and fatigue. He also complained of dyspnea on exertion and dizziness intermittently. He feels better and appears stable this AM. He denies chest pain or palpitations. He denies PND or orthopnea. He denies fever or chills. He denies nausea, vomiting, diarrhea or abdominal pain. He denies headache. front desk monitor reveals ST changes but may be due to underlying RBBB. Also reveals PVCs and 1st degree AV block. He is followed at the wound center (Dr. Cain Bledsoe) at [facility]. Rug Hooker: Librado Eckert MD at [facility] - History Source History Provided By: Patient, Medical Record Limitations to Obtaining History: No Limitations - Past Medical History Cardio/Vascular: Yes: CAD, HTN, Hyperlipdemia Renal/: Yes: Renal Inusuff - Past Surgical History Past Surgical History: Yes: Bypass, Stent - Alcohol/Substance Use Hx Alcohol Use: Yes (Social) - Smoking History Smoking history: Former smoker Have you smoked in the past 12 months: No If you are a former smoker, when did you quit?: 12yrs old stopped - Social History History of Recent Travel: No Home Medications - Allergies Allergies/Adverse Reactions: Allergies Allergy/AdvReac Type Severity Reaction Status Date / Time NO Inhibitors Allergy Unknown Verified 01/05/20 10:52 lisinopril AdvReac Cough Verified 01/05/20 10:52 - Home Medications Home Medications: Ambulatory Orders Omeprazole 40 mg PO DAILY 09/28/19 Carvedilol 12.5 mg PO Q12H 12/10/19 Clopidogrel Bisulfate [Clopidogrel] 75 mg PO DAILY 12/10/19 Cyanocobalamin [Vitamin B12 -] 1 tab PO DAILY 12/10/19 Ferrous Sulfate [Iron] 325 mg PO DAILY 12/10/19 Hydralazine HCl 25 mg PO BID 12/10/19 Isosorbide Dinitrate [Isordil] 10 mg PO BID 12/10/19 Rosuvastatin [Crestor -] 20 mg PO HS 12/10/19 Mupirocin Ointment [Bactroban 2% Ointment -] 1 applic TP BID applic 12/14/19 Furosemide 40 mg PO DAILY #10 tablet 12/15/19 Tramadol HCl 50 mg PO PRN 01/05/20 Family Medical History Family Hx Cardiac Disorders: Father ( at age 54 with ID) Family Hx Diabetes: Mother Review of Systems - Review of Systems Constitutional: reports: Weakness. denies: Chills, Fever Cardiovascular: denies: Chest Pain, Palpitations, Shortness of Breath Respiratory: denies: Cough, Hemoptysis, Orthopnea, PND, SOB, SOB on Exertion Gastrointestinal: denies: Abdominal Pain, Constipation, Diarrhea, Melena, Nausea, Rectal Bleeding, Vomiting Genitourinary: denies: Dysuria, Hematuria Musculoskeletal: denies: Back Pain, Joint Pain Neurological: denies: Dizziness, Headache, Seizure, Syncope Vital Signs: Vital Signs Temperature 97 F L 01/06/20 07:53 Pulse Rate 54 L 01/06/20 07:53 Respiratory Rate 01/06/20 08:17 Blood Pressure 144/90 01/06/20 07:53 O2 Sat by Pulse Oximetry (%) 95 01/06/20 08:17 Eyes: Yes: PERRL HENT: Yes: Atraumatic Neck: Yes: Supple Respiratory: Yes: CTA Bilaterally Gastrointestinal: Yes: Normal Bowel Sounds, Soft. No: Tenderness Cardiovascular: Yes: Regular Rate and Rhythm JVD: No PMI: Non-Displaced Heart Sounds: Yes: S1, S2 Extremities: Yes: Amputation Edema: Yes Edema: LLE: 1+, RLE: 1+ - Other Data Labs, Other Data: CBC, BMP 01/06/20 05:44 01/06/20 05:44 Troponin, BNP 01/05/20 01/05/20 01/05/20 11:55 11:55 19:10 Troponin I < 0.02 < 0.02 B-Natriuretic Peptide 9096.9 H Laboratory Results - last 24 hr 01/05/20 01/05/20 01/05/20 11:55 11:55 11:55 WBC 5.4 RBC 2.56 L Hgb 8.5 L Hct 25.9 L D MCV 101.2 H MCH 33.4 MCHC 33.0 RDW 16.3 H Plt Count 114 L D MPV 10.0 Absolute Neuts (auto) 3.8 Neutrophils % 69.0 Lymphocytes % 15.0 D Monocytes % 10.9 H Eosinophils % 3.7 Basophils % 1.4 Nucleated RBC % 0 Sodium 137 Potassium 5.0 Chloride 103 Carbon Dioxide 23 Anion Gap 11 BUN 69.0 H Creatinine 2.7 H Est GFR (CKD-EPI)AfAm 26.48 Est GFR (CKD-EPI)NonAf 22.85 POC Glucometer Random Glucose 154 H Calcium 8.7 Magnesium Total Bilirubin 1.0 AST 19 ALT 18 Alkaline Phosphatase 79 Troponin I < 0.02 B-Natriuretic Peptide 9096.9 H Total Protein 7.1 Albumin 3.5 Triglycerides Cholesterol Total LDL Cholesterol HDL Cholesterol 01/05/20 01/05/20 01/05/20 17:33 17:44 19:10 WBC RBC Hgb Hct MCV MCH MCHC RDW Plt Count MPV Absolute Neuts (auto) Neutrophils % Lymphocytes % Monocytes % Eosinophils % Basophils % Nucleated RBC % Sodium Potassium Chloride Carbon Dioxide Anion Gap BUN Creatinine Est GFR (CKD-EPI)AfAm Est GFR (CKD-EPI)NonAf POC Glucometer 256 237 Random Glucose Calcium Magnesium Total Bilirubin AST ALT Alkaline Phosphatase Troponin I < 0.02 B-Natriuretic Peptide Total Protein Albumin Triglycerides 87 Cholesterol 123 Total LDL Cholesterol 70 HDL Cholesterol 33 L 01/05/20 01/05/20 01/06/20 19:10 21:39 05:44 WBC 4.7 4.7 RBC 2.49 L 2.69 L Hgb 8.3 L 9.0 L Hct 25.4 L 27.4 L MCV 102.0 H 101.7 H MCH 33.5 33.3 MCHC 32.8 32.7 RDW 16.6 H 16.5 H Plt Count 97 L 96 L MPV 10.3 10.7 Absolute Neuts (auto) 3.0 3.0 Neutrophils % 63.5 64.2 Lymphocytes % 18.7 D 19.5 Monocytes % 12.2 H 10.6 H Eosinophils % 4.1 4.3 Basophils % 1.5 1.4 Nucleated RBC % 0 0 Sodium Potassium Chloride Carbon Dioxide Anion Gap BUN Creatinine Est GFR (CKD-EPI)AfAm Est GFR (CKD-EPI)NonAf POC Glucometer 137 Random Glucose Calcium Magnesium Total Bilirubin AST ALT Alkaline Phosphatase Troponin I B-Natriuretic Peptide Total Protein Albumin Triglycerides Cholesterol Total LDL Cholesterol HDL Cholesterol 01/06/20 01/06/20 05:44 06:06 WBC RBC Hgb Hct MCV MCH MCHC RDW Plt Count MPV Absolute Neuts (auto) Neutrophils % Lymphocytes % Monocytes % Eosinophils % Basophils % Nucleated RBC % Sodium 138 Potassium 4.9 Chloride 102 Carbon Dioxide 25 Anion Gap 11 BUN 71.5 H Creatinine 2.9 H Est GFR (CKD-EPI)AfAm 24.29 Est GFR (CKD-EPI)NonAf 20.96 POC Glucometer 182 Random Glucose 181 H Calcium 8.9 Magnesium 2.6 H Total Bilirubin 1.0 AST 15 ALT 18 Alkaline Phosphatase 76 Troponin I B-Natriuretic Peptide Total Protein 7.1 Albumin 3.6 Triglycerides Cholesterol Total LDL Cholesterol HDL Cholesterol Sinus rhythm RBBB, ST abnormalities (nonspecific), PVC Imaging - Results Chest X-ray: Report Reviewed (No acute chest pathology) EKG: Report Reviewed Problem List - Problems (1) Anemia Code(s): D64.9 - ANEMIA, UNSPECIFIED Qualifiers: Anemia type: unspecified type Qualified Code(s): D64.9 - Anemia, unspecified (2) CAD (coronary artery disease) Code(s): I25.10 - ATHSCL HEART DISEASE OF [place] CORONARY ARTERY W/O ANG PCTRS (3) CKD (chronic kidney disease) Code(s): N18.9 - CHRONIC KIDNEY DISEASE, UNSPECIFIED Qualifiers: Chronic kidney disease stage: unspecified stage Qualified Code(s): N18.9 - Chronic kidney disease, unspecified (4) Chronic venous hypertension with ulcer Code(s): I87.319 - CHRONIC VENOUS HYPERTENSION W ULCER OF UNSP LOW EXTRM; L97.909 - NON-PRS CHRONIC ULC UNSP PRT OF UNSP LOW LEG W UNSP SEVERITY (5) ROWELL (dyspnea on exertion) Code(s): R06.00 - DYSPNEA, UNSPECIFIED (6) Dyslipidemia Code(s): E78.5 - HYPERLIPIDEMIA, UNSPECIFIED (7) Hypertension Code(s): I10 - ESSENTIAL (PRIMARY) HYPERTENSION (8) Type 2 diabetes mellitus Code(s): E11.9 - TYPE 2 DIABETES MELLITUS WITHOUT COMPLICATIONS (9) Fatigue Code(s): R53.83 - OTHER FATIGUE Qualifiers: Fatigue type: unspecified Qualified Code(s): R53.83 - Other fatigue (10) PVD (peripheral vascular disease) with claudication Code(s): I73.9 - PERIPHERAL VASCULAR DISEASE, UNSPECIFIED (11) Acute on chronic heart failure Code(s): I50.9 - HEART FAILURE, UNSPECIFIED Assessment/Plan 1. CAD s/p CABG, PCI/stent, angina pectoris 2. HTN 3. Hypercholesterolemia 4. Diabetes Mellitus 5. PAD s/p amputation 6. Lower extremity wound 7. RBBB 8. PVCs 9. Generalized weakness 10. Anemia 11. CKD PLAN: 1. Continue Carvedilol 12.5 mg BID, Hydralazine 25 mg BID and Isordil 10 mg BID 2. Continue Plavix 75 mg QD 3. Lasix 40 mg QD and monitor renal function and electrolytes 4. Continue Crestor 20 mg QHS 5. Telemetry monitoring. Troponins negative. No immediate cardiac intervention is needed Follow up with Dr. Librado Eckert at [facility] upon discharge Thank you for the consultation Harley Wen MD
[2020-01-06] MEDS: LIDOCAINE 5% TOPICAL PATCH TP SCH (09:33)
[2020-01-06] MEDS: PANTOPRAZOLE 40 MG TABLET PO SCH (09:35)
[2020-01-06] MEDS: FERROUS SO4 325 MG TABLET (FP) PO SCH (09:35)
[2020-01-06] MEDS: CLOPIDOGREL BISULFATE 75 MG TABLET (FP) PO SCH (09:35)
[2020-01-06] MEDS: FUROSEMIDE 40 MG TABLET (FP) PO SCH (09:36)
[2020-01-06] MEDS: CYANOCOBALAMIN (VITAMIN B-12) 100 MCG TABLET PO SCH (09:36)
[2020-01-06] MEDS: hydrALAZINE HCL 25 MG TABLET (FP) PO SCH ×2 (09:38→21:45)
[2020-01-06] MEDS: ISOSORBIDE DINITRATE 10 MG TABLET (FP) PO SCH ×2 (09:38→17:00)
[2020-01-06] MEDS: CARVEDILOL 12.5 MG TABLET (FP) PO SCH ×2 (09:38→21:45)
--- NOTE | 2020-01-06 12:45 | PN ---
Progress Note, Physician History of Present Illness: Pt seen and examined at bedside. He is awake and alert. He denies shortness of breath. He complains of edema. - Current Medication List Current Medications: Active Medications Carvedilol (Coreg -) 12.5 mg PO BID [facility] Last Admin: 01/06/20 09:38 Dose: 12.5 mg Documented by: Clopidogrel Bisulfate (Plavix -) 75 mg PO DAILY [facility] Last Admin: 01/06/20 09:35 Dose: 75 mg Documented by: Cyanocobalamin (Vitamin B12 -) 100 mcg PO DAILY [facility] Last Admin: 01/06/20 09:36 Dose: 100 mcg Documented by: Ferrous Sulfate (Feosol -) 325 mg PO DAILY [facility] Last Admin: 01/06/20 09:35 Dose: 325 mg Documented by: Furosemide (Lasix -) 40 mg PO DAILY [facility] Last Admin: 01/06/20 09:36 Dose: 40 mg Documented by: Hydralazine HCl (Apresoline -) 25 mg PO BID [facility] Last Admin: 01/06/20 09:38 Dose: 25 mg Documented by: Insulin Aspart (Novolog Vial Sliding Scale -) 1 vial SQ TIDAC [facility]; Protocol Last Admin: 01/06/20 11:28 Dose: 4 units Documented by: Isosorbide Dinitrate (Isordil -) 10 mg PO BIDISORDIL [facility] Last Admin: 01/06/20 09:38 Dose: 10 mg Documented by: Lidocaine (Lidoderm Patch -) 1 patch TP DAILY [facility] Last Admin: 01/06/20 09:33 Dose: 1 patch Documented by: Miscellaneous (Lidoderm Patch Removal) 1 each MC DAILY@2200 [facility] Last Admin: 01/06/20 01:12 Dose: Not Given Documented by: Mupirocin (Bactroban 2% Ointment -) 1 applic TP BID [facility] Last Admin: 01/06/20 09:33 Dose: 1 applic Documented by: Pantoprazole Sodium (Protonix -) 40 mg PO DAILY [facility] Last Admin: 01/06/20 09:35 Dose: 40 mg Documented by: Rosuvastatin Calcium (Crestor -) 20 mg PO HS [facility] Last Admin: 01/05/20 21:01 Dose: 20 mg Documented by: Tramadol HCl (Ultram -) 50 mg PO Q8H PRN PRN Reason: PAIN LEVEL 7 - 10 Last Admin: 01/06/20 09:35 Dose: 50 mg Documented by: - Objective Vital Signs: Vital Signs Temperature 97 F L 01/06/20 07:53 Pulse Rate 54 L 01/06/20 07:53 Respiratory Rate 20 01/06/20 08:17 Blood Pressure 144/90 01/06/20 07:53 O2 Sat by Pulse Oximetry (%) 95 01/06/20 08:17 Constitutional: Yes: Calm Eyes: Yes: Conjunctiva Clear HENT: Yes: Atraumatic Neck: Yes: Supple Cardiovascular: Yes: S1, S2 Respiratory: Yes: CTA Bilaterally Gastrointestinal: Yes: Normal Bowel Sounds, Soft Genitourinary: Yes: WNL Musculoskeletal: Yes: WNL Edema: Yes Edema: LLE: 2+, RLE: 2+ Neurological: Yes: Oriented Psychiatric: Yes: Oriented Labs: CBC, BMP 01/06/20 05:44 01/06/20 05:44 Assessment/Plan Current Medications Generic Name Dose Route Start Last Admin Trade Name Freq PRN Reason Stop Dose Admin Carvedilol 12.5 mg 01/05/20 22:00 01/06/20 09:38 Coreg - PO 12.5 mg BID [facility] Administration Clopidogrel Bisulfate 75 mg 01/06/20 10:00 01/06/20 09:35 Plavix - PO 75 mg DAILY [facility] Administration Cyanocobalamin 100 mcg 01/06/20 10:00 01/06/20 09:36 Vitamin B12 - PO 100 mcg DAILY [facility] Administration Ferrous Sulfate 325 mg 01/06/20 10:00 01/06/20 09:35 Feosol - PO 325 mg DAILY [facility] Administration Furosemide 40 mg 01/05/20 16:00 01/06/20 09:36 Lasix - PO 40 mg DAILY [facility] Administration Hydralazine HCl 25 mg 01/05/20 22:00 01/06/20 09:38 Apresoline - PO 25 mg BID [facility] Administration Insulin Aspart 1 vial 01/05/20 16:30 01/06/20 11:28 Novolog Vial Sliding Scale - SQ 4 units TIDAC [facility] Administration Protocol Isosorbide Dinitrate 10 mg 01/05/20 18:00 01/06/20 09:38 Isordil - PO 10 mg BIDISORDIL [facility] Administration Lidocaine 1 patch 01/06/20 10:00 08/16/20 09:33 Lidoderm Patch - TP 1 patch DAILY [facility] Administration Miscellaneous 1 each 01/05/20 22:00 01/06/20 01:12 Lidoderm Patch Removal MC Not Given DAILY@2200 [facility] Mupirocin 1 applic 01/05/20 22:00 01/06/20 09:33 Bactroban 2% Ointment - TP 1 applic BID [facility] Administration Pantoprazole Sodium 40 mg 01/06/20 10:00 01/06/20 09:35 Protonix - PO 40 mg DAILY [facility] Administration Rosuvastatin Calcium 20 mg 01/05/20 22:00 01/05/20 21:01 Crestor - PO 20 mg HS [facility] Administration Tramadol HCl 50 mg 01/06/20 09:10 01/06/20 09:35 Ultram - PO 50 mg Q8H PRN Administration PAIN LEVEL 7 - 10 Impression 1. CKD 2. back pain 3. hld 4. htn 5. dm 6. proteinuria 7. 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
--- NOTE | 2020-01-06 17:43 | PN ---
Physical Exam: SUBJECTIVE: Patient seen and examined at bedside, endorses R HIP pain, denies CP/SOB, follows with [facility] V[facility] Supervisor at [facility], VSS. OBJECTIVE: Vital Signs Period Temp Pulse Resp BP Sys/Espinosa Pulse Ox Last 24 Hr 97 F-98.3 F 52-67 20-20 127-145/64-90 95-96 GENERAL: Obese, NAD, AAox3, speaking in full sentences HEENT NC/AT, EOMI, neck supple LUNGS: CTAB, no crackles HEART: S1, S2+, RRR ABDOMEN: Obese, Soft, NT, ND, BS+ EXTREMITIES: 2+ pulses, warm, well-perfused, 1+ edema NEUROLOGICAL: Cranial nerves II through XII grossly intact. Normal speech, gait not observed. PSYCH: Normal mood, normal affect. SKIN: Warm, dry, normal turgor, no rashes or lesions noted MSK: pain just above R buttock, TTP, no visible rash Laboratory Results - last 24 hr 01/05/20 01/05/20 01/05/20 17:44 19:10 19:10 WBC 4.7 RBC 2.49 L Hgb 8.3 L Hct 25.4 L MCV 102.0 H MCH 33.5 MCHC 32.8 RDW 16.6 H Plt Count 97 L MPV 10.3 Absolute Neuts (auto) 3.0 Neutrophils % 63.5 Lymphocytes % 18.7 D Monocytes % 12.2 H Eosinophils % 4.1 Basophils % 1.5 Nucleated RBC % 0 Sodium Potassium Chloride Carbon Dioxide Anion Gap BUN Creatinine Est GFR (CKD-EPI)AfAm Est GFR (CKD-EPI)NonAf POC Glucometer 237 Random Glucose Calcium Magnesium Total Bilirubin AST ALT Alkaline Phosphatase Troponin I < 0.02 Total Protein Albumin Triglycerides 87 Cholesterol 123 Total LDL Cholesterol 70 HDL Cholesterol 33 L 01/05/20 01/06/20 01/06/20 21:39 05:44 05:44 WBC 4.7 RBC 2.69 L Hgb 9.0 L Hct 27.4 L MCV 101.7 H MCH 33.3 MCHC 32.7 RDW 16.5 H Plt Count 96 L MPV 10.7 Absolute Neuts (auto) 3.0 Neutrophils % 64.2 Lymphocytes % 19.5 Monocytes % 10.6 H Eosinophils % 4.3 Basophils % 1.4 Nucleated RBC % 0 Sodium 138 Potassium 4.9 Chloride 102 Carbon Dioxide 25 Anion Gap 11 BUN 71.5 H Creatinine 2.9 H Est GFR (CKD-EPI)AfAm 24.29 Est GFR (CKD-EPI)NonAf 20.96 POC Glucometer 137 Random Glucose 181 H Calcium 8.9 Magnesium 2.6 H Total Bilirubin 1.0 AST 15 ALT 18 Alkaline Phosphatase 76 Troponin I < 0.02 Total Protein 7.1 Albumin 3.6 Triglycerides Cholesterol Total LDL Cholesterol HDL Cholesterol 01/06/20 01/06/20 01/06/20 06:06 11:27 16:54 WBC RBC Hgb Hct MCV MCH MCHC RDW Plt Count MPV Absolute Neuts (auto) Neutrophils % Lymphocytes % Monocytes % Eosinophils % Basophils % Nucleated RBC % Sodium Potassium Chloride Carbon Dioxide Anion Gap BUN Creatinine Est GFR (CKD-EPI)AfAm Est GFR (CKD-EPI)NonAf POC Glucometer 182 206 170 Random Glucose Calcium Magnesium Total Bilirubin AST ALT Alkaline Phosphatase Troponin I Total Protein Albumin Triglycerides Cholesterol Total LDL Cholesterol HDL Cholesterol Active Medications Generic Name Dose Route Start Last Admin Trade Name Freq PRN Reason Stop Dose Admin Carvedilol 12.5 mg 01/05/20 22:00 01/06/20 09:38 Coreg - PO 12.5 mg BID [facility] Administration Clopidogrel Bisulfate 75 mg 01/06/20 10:00 01/06/20 09:35 Plavix - PO 75 mg DAILY [facility] Administration Cyanocobalamin 100 mcg 01/06/20 10:00 01/06/20 09:36 Vitamin B12 - PO 100 mcg DAILY [facility] Administration Ferrous Sulfate 325 mg 01/06/20 10:00 01/06/20 09:35 Feosol - PO 325 mg DAILY [facility] Administration Furosemide 40 mg 01/05/20 16:00 01/06/20 09:36 Lasix - PO 40 mg DAILY [facility] Administration Hydralazine HCl 25 mg 01/05/20 22:00 01/06/20 09:38 Apresoline - PO 25 mg BID [facility] Administration Insulin Aspart 1 vial 01/05/20 16:30 01/06/20 16:59 Novolog Vial Sliding Scale - SQ 2 units TIDAC [facility] Administration Protocol Isosorbide Dinitrate 10 mg 01/05/20 18:00 01/06/20 17:00 Isordil - PO 10 mg BIDISORDIL [facility] Administration Lidocaine 1 patch 01/06/20 10:00 01/06/20 09:33 Lidoderm Patch - TP 1 patch DAILY [facility] Administration Miscellaneous 1 each 01/05/20 22:00 01/06/20 01:12 Lidoderm Patch Removal MC Not Given DAILY@2200 [facility] Mupirocin 1 applic 01/05/20 22:00 01/06/20 09:33 Bactroban 2% Ointment - TP 1 applic BID [facility] Administration Pantoprazole Sodium 40 mg 01/06/20 10:00 01/06/20 09:35 Protonix - PO 40 mg DAILY [facility] Administration Rosuvastatin Calcium 20 mg 01/05/20 22:00 01/05/20 21:01 Crestor - PO 20 mg HS [facility] Administration Tramadol HCl 50 mg 01/06/20 09:10 01/06/20 09:35 Ultram - PO 50 mg Q8H PRN Administration PAIN LEVEL 7 - 10 ASSESSMENT/PLAN: 69 M LBP s/p fall , r/o HIP fx HTN HLD CHF CABG CKD Morbid obesity T2DM GERD PAD Plan: Cont. current HF medications CT R hip r/o fracture Cont. Ultram for pain Tele monitoring Cardiology following, cont. current management PT evaluation DVT ppx: Heparin SC Visit type - Emergency Visit Emergency Visit: Yes ED Registration Date: 01/05/20 Care time: The patient presented to the Emergency Department on the above date and was hospitalized for further evaluation of their emergent condition. - New Patient This patient is new to me today: Yes Date on this admission: 01/06/20 - Critical Care Critical Care patient: No - Discharge Referral Referred to [facility] No - Medication Review Med list reviewed for High Risk Meds patients 65 and older: Yes
--- NOTE | 2020-01-06 17:56 | EKG ---
Test Reason : Blood Pressure : / mmHG Vent. Rate : 053 BPM Atrial Rate : 055 BPM P-R Int : 000 ms QRS Dur : 156 ms QT Int : 520 ms P-R-T Axes : 000 088 196 degrees QTc Int : 487 ms SINUS BRADYCARDIA WITH 1ST DEGREE A-V BLOCK and PVCs RIGHT BUNDLE BRANCH BLOCK T WAVE ABNORMALITY, CONSIDER INFEROLATERAL ISCHEMIA ABNORMAL ECG Confirmed by MD MCCORD MOYSES ([id number]) on 01/06/2020 5:56:19 PM Referred By: Jameson RUSSELL Confirmed By:HERBIE MCCORD MD
--- NOTE | 2020-01-06 18:20 | EKG ---
Test Reason : Blood Pressure : / mmHG Vent. Rate : 064 BPM Atrial Rate : 064 BPM P-R Int : 336 ms QRS Dur : 150 ms QT Int : 472 ms P-R-T Axes : 017 088 261 degrees QTc Int : 486 ms SINUS RHYTHM WITH 1ST DEGREE A-V BLOCK WITH FREQUENT PREMATURE VENTRICULAR COMPLEXES RIGHT BUNDLE BRANCH BLOCK T WAVE ABNORMALITY, CONSIDER INFEROLATERAL ISCHEMIA ABNORMAL ECG Confirmed by MD SURI, HERBIE ([id number]) on 01/06/2020 6:20:23 PM Referred By: Confirmed By:HERBIE MCCORD MD
[2020-01-06] MEDS: HEPARIN NA (PORCINE) 5,000 UNITS/ML 1ML VIAL SQ SCH (21:45)
[2020-01-06] MEDS: ROSUVASTATIN CA 20 MG TABLET (FP) PO SCH (21:45)
[2020-01-07] MEDS: HEPARIN NA (PORCINE) 5,000 UNITS/ML 1ML VIAL SQ SCH ×2 (06:41→14:27)
[2020-01-07] MEDS: INSULIN SLIDING SCALE (NOVOLOG) 1 VIAL SQ SCH ×3 (06:41→16:49)
--- NOTE | 2020-01-07 08:49 | PN ---
Progress Note, Physician - Current Medication List Current Medications: Active Medications Carvedilol (Coreg -) 12.5 mg PO BID [facility] Last Admin: 01/06/20 21:45 Dose: 12.5 mg Documented by: Clopidogrel Bisulfate (Plavix -) 75 mg PO DAILY [facility] Last Admin: 01/06/20 09:35 Dose: 75 mg Documented by: Cyanocobalamin (Vitamin B12 -) 100 mcg PO DAILY [facility] Last Admin: 01/06/20 09:36 Dose: 100 mcg Documented by: Ferrous Sulfate (Feosol -) 325 mg PO DAILY [facility] Last Admin: 01/06/20 09:35 Dose: 325 mg Documented by: Furosemide (Lasix -) 40 mg PO DAILY [facility] Last Admin: 01/06/20 09:36 Dose: 40 mg Documented by: Heparin Sodium (Porcine) (Heparin -) 5,000 unit SQ TID [facility] Last Admin: 01/07/20 06:41 Dose: 5,000 unit Documented by: Hydralazine HCl (Apresoline -) 25 mg PO BID [facility] Last Admin: 01/06/20 21:45 Dose: 25 mg Documented by: Insulin Aspart (Novolog Vial Sliding Scale -) 1 vial SQ TIDAC [facility]; Protocol Last Admin: 01/07/20 06:41 Dose: 2 units Documented by: Isosorbide Dinitrate (Isordil -) 10 mg PO BIDISORDIL [facility] Last Admin: 01/06/20 17:00 Dose: 10 mg Documented by: Lidocaine (Lidoderm Patch -) 1 patch TP DAILY [facility] Last Admin: 01/06/20 09:33 Dose: 1 patch Documented by: Miscellaneous (Lidoderm Patch Removal) 1 each MC DAILY@2200 [facility] Last Admin: 01/06/20 21:48 Dose: 1 each Documented by: Mupirocin (Bactroban 2% Ointment -) 1 applic TP BID [facility] Last Admin: 01/06/20 21:45 Dose: 1 applic Documented by: Pantoprazole Sodium (Protonix -) 40 mg PO DAILY [facility] Last Admin: 01/06/20 09:35 Dose: 40 mg Documented by: Rosuvastatin Calcium (Crestor -) 20 mg PO HS [facility] Last Admin: 01/06/20 21:45 Dose: 20 mg Documented by: Tramadol HCl (Ultram -) 50 mg PO Q8H PRN PRN Reason: PAIN LEVEL 7 - 10 Last Admin: 01/06/20 09:35 Dose: 50 mg Documented by: - Objective Vital Signs: Vital Signs Temperature 97 F L 01/07/20 05:38 Pulse Rate 78 01/07/20 05:38 Respiratory Rate 20 01/07/20 05:38 Blood Pressure 130/77 01/07/20 05:38 O2 Sat by Pulse Oximetry (%) 99 01/06/20 22:00 Labs: CBC, BMP 01/06/20 05:44 01/06/20 05:44 Assessment/Plan 1. CAD s/p CABG, PCI/stent, angina pectoris 2. HTN 3. Hypercholesterolemia 4. Diabetes Mellitus 5. PAD s/p amputation 6. Lower extremity wound 7. RBBB 8. PVCs 9. Generalized weakness post fall, r/o hip fracture 10. Anemia 11. CKD PLAN: 1. Continue Carvedilol 12.5 mg BID, Hydralazine 25 mg BID and Isordil 10 mg BID 2. Continue Plavix 75 mg QD 3. Lasix 40 mg QD and monitor renal function and electrolytes 4. Continue Crestor 20 mg QHS 5. Telemetry monitoring. Troponins negative. No immediate cardiac intervention is needed 6. F/u right hip CT r/o fracture Follow up with Dr. Librado Eckert at [facility] upon discharge
[2020-01-07] MEDS: CLOPIDOGREL BISULFATE 75 MG TABLET (FP) PO SCH (09:26)
[2020-01-07] MEDS: PANTOPRAZOLE 40 MG TABLET PO SCH (09:26)
[2020-01-07] MEDS: CARVEDILOL 12.5 MG TABLET (FP) PO SCH (09:26)
[2020-01-07] MEDS: CYANOCOBALAMIN (VITAMIN B-12) 100 MCG TABLET PO SCH (09:26)
[2020-01-07] MEDS: FUROSEMIDE 40 MG TABLET (FP) PO SCH (09:26)
[2020-01-07] MEDS: FERROUS SO4 325 MG TABLET (FP) PO SCH (09:26)
[2020-01-07] MEDS: hydrALAZINE HCL 25 MG TABLET (FP) PO SCH (09:26)
[2020-01-07] MEDS: ISOSORBIDE DINITRATE 10 MG TABLET (FP) PO SCH ×2 (09:26→17:38)
[2020-01-07] MEDS: LIDOCAINE 5% TOPICAL PATCH TP SCH (09:27)
--- NOTE | 2020-01-07 09:58 | PN ---
Progress Note, Physician Chief Complaint: Events noted Had CT of lumbar vertebrae and lower extremity yesterday and felt dizzy when he returned to his room. Also vomited. Currently intermittent dizziness History of Present Illness: Patient was seen and examined. Awake and alert. Chart was reviewed. Denies chest pain. SOB or palpitations - Current Medication List Current Medications: Active Medications Carvedilol (Coreg -) 12.5 mg PO BID [facility] Last Admin: 01/07/20 09:26 Dose: 12.5 mg Documented by: Clopidogrel Bisulfate (Plavix -) 75 mg PO DAILY [facility] Last Admin: 01/07/20 09:26 Dose: 75 mg Documented by: Cyanocobalamin (Vitamin B12 -) 100 mcg PO DAILY [facility] Last Admin: 01/07/20 09:26 Dose: 100 mcg Documented by: Ferrous Sulfate (Feosol -) 325 mg PO DAILY [facility] Last Admin: 01/07/20 09:26 Dose: 325 mg Documented by: Furosemide (Lasix -) 40 mg PO DAILY [facility] Last Admin: 01/07/20 09:26 Dose: 40 mg Documented by: Heparin Sodium (Porcine) (Heparin -) 5,000 unit SQ TID [facility] Last Admin: 01/07/20 06:41 Dose: 5,000 unit Documented by: Hydralazine HCl (Apresoline -) 25 mg PO BID [facility] Last Admin: 01/07/20 09:26 Dose: 25 mg Documented by: Insulin Aspart (Novolog Vial Sliding Scale -) 1 vial SQ TIDAC [facility]; Protocol Last Admin: 01/07/20 06:41 Dose: 2 units Documented by: Isosorbide Dinitrate (Isordil -) 10 mg PO BIDISORDIL [facility] Last Admin: 01/07/20 09:26 Dose: 10 mg Documented by: Lidocaine (Lidoderm Patch -) 1 patch TP DAILY [facility] Last Admin: 01/07/20 09:27 Dose: 1 patch Documented by: Miscellaneous (Lidoderm Patch Removal) 1 each MC DAILY@2200 [facility] Last Admin: 01/06/20 21:48 Dose: 1 each Documented by: Mupirocin (Bactroban 2% Ointment -) 1 applic TP BID [facility] Last Admin: 01/06/20 21:45 Dose: 1 applic Documented by: Pantoprazole Sodium (Protonix -) 40 mg PO DAILY [facility] Last Admin: 01/07/20 09:26 Dose: 40 mg Documented by: Rosuvastatin Calcium (Crestor -) 20 mg PO HS [facility] Last Admin: 01/06/20 21:45 Dose: 20 mg Documented by: Tramadol HCl (Ultram -) 50 mg PO Q8H PRN PRN Reason: PAIN LEVEL 7 - 10 Last Admin: 01/06/20 09:35 Dose: 50 mg Documented by: - Objective Vital Signs: Vital Signs Temperature 98.2 F 01/07/20 09:00 Pulse Rate 60 01/07/20 09:00 Respiratory Rate 01/07/20 09:00 Blood Pressure 130/52 L 01/07/20 09:00 O2 Sat by Pulse Oximetry (%) 99 01/07/20 09:00 Eyes: Yes: PERRL HENT: Yes: Atraumatic Neck: Yes: Supple Cardiovascular: Yes: Regular Rate and Rhythm, S1, S2 Respiratory: Yes: CTA Bilaterally Gastrointestinal: Yes: Normal Bowel Sounds, Soft. No: Tenderness Edema: No Neurological: Yes: Weakness Additional Findings/Remarks: - Review of Systems Constitutional: reports: Weakness. denies: Chills, Fever Cardiovascular: denies: Chest Pain, Palpitations, Shortness of Breath Respiratory: denies: Cough, Hemoptysis, Orthopnea, PND, SOB, SOB on Exertion Gastrointestinal: denies: Abdominal Pain, Constipation, Diarrhea, Melena, Nausea, Rectal Bleeding, Vomiting Genitourinary: denies: Dysuria, Hematuria Musculoskeletal: denies: Back Pain, Joint Pain Neurological: (+) Dizziness, denies: Headache, Seizure, Syncope Labs: CBC, BMP 01/06/20 05:44 01/06/20 05:44 Problem List - Problems (1) Anemia Code(s): D64.9 - ANEMIA, UNSPECIFIED Qualifiers: Anemia type: unspecified type Qualified Code(s): D64.9 - Anemia, unspecified (2) CAD (coronary artery disease) Code(s): I25.10 - ATHSCL HEART DISEASE OF [place] CORONARY ARTERY W/O ANG PCTRS (3) CKD (chronic kidney disease) Code(s): N18.9 - CHRONIC KIDNEY DISEASE, UNSPECIFIED Qualifiers: Chronic kidney disease stage: unspecified stage Qualified Code(s): N18.9 - Chronic kidney disease, unspecified (4) Chronic venous hypertension with ulcer Code(s): I87.319 - CHRONIC VENOUS HYPERTENSION W ULCER OF UNSP LOW EXTRM; L97.909 - NON-PRS CHRONIC ULC UNSP PRT OF UNSP LOW LEG W UNSP SEVERITY (5) ROWELL (dyspnea on exertion) Code(s): R06.00 - DYSPNEA, UNSPECIFIED (6) Dyslipidemia Code(s): E78.5 - HYPERLIPIDEMIA, UNSPECIFIED (7) Hypertension Code(s): I10 - ESSENTIAL (PRIMARY) HYPERTENSION (8) Type 2 diabetes mellitus Code(s): E11.9 - TYPE 2 DIABETES MELLITUS WITHOUT COMPLICATIONS (9) Fatigue Code(s): R53.83 - OTHER FATIGUE Qualifiers: Fatigue type: unspecified Qualified Code(s): R53.83 - Other fatigue (10) PVD (peripheral vascular disease) with claudication Code(s): I73.9 - PERIPHERAL VASCULAR DISEASE, UNSPECIFIED (11) Acute on chronic heart failure Code(s): I50.9 - HEART FAILURE, UNSPECIFIED Assessment/Plan 1. CAD s/p CABG, PCI/stent, angina pectoris 2. HTN 3. Hypercholesterolemia 4. Diabetes Mellitus 5. PAD s/p amputation 6. Lower extremity wound 7. RBBB 8. PVCs 9. Generalized weakness and dizziness 10. Anemia 11. CKD PLAN: 1. Continue Carvedilol 12.5 mg BID, Hydralazine 25 mg BID and Isordil 10 mg BID 2. Continue Plavix 75 mg QD 3. Lasix 40 mg QD and monitor renal function and electrolytes (Cr 2.9) 4. Continue Crestor 20 mg QHS 5. Telemetry monitoring. Troponins negative. No immediate cardiac intervention is needed. Echocardiography was done with Dr. Eckert in November. Further testing including stress testing can be done as outpatient with his product/industry consultant. Follow up with Dr. Librado Eckert at [facility] upon discharge Thank you for the consultation Harley Wen MD
[2020-01-07] MEDS: MUPIROCIN 2% TOPICAL OINTMENT 22 GM TUBE TP SCH (11:16)
--- NOTE | 2020-01-07 11:25 | PN ---
Progress Note, Physician History of Present Illness: Pt seen and examined at bedside. he is awake and alert. he complains of edema but no shortness of breath. - Current Medication List Current Medications: Active Medications Carvedilol (Coreg -) 12.5 mg PO BID [facility] Last Admin: 01/07/20 09:26 Dose: 12.5 mg Documented by: Clopidogrel Bisulfate (Plavix -) 75 mg PO DAILY [facility] Last Admin: 01/07/20 09:26 Dose: 75 mg Documented by: Cyanocobalamin (Vitamin B12 -) 100 mcg PO DAILY [facility] Last Admin: 01/07/20 09:26 Dose: 100 mcg Documented by: Ferrous Sulfate (Feosol -) 325 mg PO DAILY [facility] Last Admin: 01/07/20 09:26 Dose: 325 mg Documented by: Furosemide (Lasix -) 40 mg PO DAILY [facility] Last Admin: 01/07/20 09:26 Dose: 40 mg Documented by: Heparin Sodium (Porcine) (Heparin -) 5,000 unit SQ TID [facility] Last Admin: 01/07/20 06:41 Dose: 5,000 unit Documented by: Hydralazine HCl (Apresoline -) 25 mg PO BID [facility] Last Admin: 01/07/20 09:26 Dose: 25 mg Documented by: Insulin Aspart (Novolog Vial Sliding Scale -) 1 vial SQ TIDAC [facility]; Protocol Last Admin: 01/07/20 11:15 Dose: 4 units Documented by: Isosorbide Dinitrate (Isordil -) 10 mg PO BIDISORDIL [facility] Last Admin: 01/07/20 09:26 Dose: 10 mg Documented by: Lidocaine (Lidoderm Patch -) 1 patch TP DAILY [facility] Last Admin: 01/07/20 09:27 Dose: 1 patch Documented by: Miscellaneous (Lidoderm Patch Removal) 1 each MC DAILY@2200 [facility] Last Admin: 01/06/20 21:48 Dose: 1 each Documented by: Mupirocin (Bactroban 2% Ointment -) 1 applic TP BID [facility] Last Admin: 01/07/20 11:16 Dose: Not Given Documented by: Pantoprazole Sodium (Protonix -) 40 mg PO DAILY [facility] Last Admin: 01/07/20 09:26 Dose: 40 mg Documented by: Rosuvastatin Calcium (Crestor -) 20 mg PO HS [facility] Last Admin: 01/06/20 21:45 Dose: 20 mg Documented by: Tramadol HCl (Ultram -) 50 mg PO Q8H PRN PRN Reason: PAIN LEVEL 7 - 10 Last Admin: 01/06/20 09:35 Dose: 50 mg Documented by: - Objective Vital Signs: Vital Signs Temperature 98.2 F 01/07/20 09:00 Pulse Rate 60 01/07/20 09:00 Respiratory Rate 20 01/07/20 09:00 Blood Pressure 130/52 L 01/07/20 09:00 O2 Sat by Pulse Oximetry (%) 99 01/07/20 09:00 Constitutional: Yes: Calm Eyes: Yes: Conjunctiva Clear HENT: Yes: Atraumatic Neck: Yes: Supple Cardiovascular: Yes: S1, S2 Respiratory: Yes: CTA Bilaterally Gastrointestinal: Yes: Normal Bowel Sounds, Soft Genitourinary: Yes: WNL Musculoskeletal: Yes: WNL Edema: Yes Edema: LLE: 1+, RLE: 1+ Neurological: Yes: Oriented Psychiatric: Yes: Oriented Labs: CBC, BMP 01/06/20 05:44 01/06/20 05:44 Assessment/Plan Current Medications Generic Name Dose Route Start Last Admin Trade Name Freq PRN Reason Stop Dose Admin Carvedilol 12.5 mg 01/05/20 22:00 01/07/20 09:26 Coreg - PO 12.5 mg BID [facility] Administration Clopidogrel Bisulfate 75 mg 01/06/20 10:00 01/07/20 09:26 Plavix - PO 75 mg DAILY [facility] Administration Cyanocobalamin 100 mcg 01/06/20 10:00 01/07/20 09:26 Vitamin B12 - PO 100 mcg DAILY [facility] Administration Ferrous Sulfate 325 mg 01/06/20 10:00 01/07/20 09:26 Feosol - PO 325 mg DAILY [facility] Administration Furosemide 40 mg 01/05/20 16:00 01/07/20 09:26 Lasix - PO 40 mg DAILY [facility] Administration Heparin Sodium (Porcine) 5,000 unit 01/06/20 22:00 01/07/20 06:41 Heparin - SQ 5,000 unit TID [facility] Administration Hydralazine HCl 25 mg 01/05/20 22:00 01/07/20 09:26 Apresoline - PO 25 mg BID [facility] Administration Insulin Aspart 1 vial 01/05/20 16:30 01/07/20 11:15 Novolog Vial Sliding Scale - SQ 4 units TIDAC [facility] Administration Protocol Isosorbide Dinitrate 10 mg 01/05/20 18:00 01/07/20 09:26 Isordil - PO 10 mg BIDISORDIL [facility] Administration Lidocaine 1 patch 01/06/20 10:00 01/07/20 09:27 Lidoderm Patch - TP 1 patch DAILY [facility] Administration Miscellaneous 1 each 01/05/20 22:00 01/06/20 21:48 Lidoderm Patch Removal MC 1 each DAILY@2200 [facility] Administration Mupirocin 1 applic 01/05/20 22:00 01/07/20 11:16 Bactroban 2% Ointment - TP Not Given BID [facility] Pantoprazole Sodium 40 mg 01/06/20 10:00 01/07/20 09:26 Protonix - PO 40 mg DAILY [facility] Administration Rosuvastatin Calcium 20 mg 01/05/20 22:00 01/06/20 21:45 Crestor - PO 20 mg HS [facility] Administration Tramadol HCl 50 mg 01/06/20 09:10 01/06/20 09:35 Ultram - PO 50 mg Q8H PRN Administration PAIN LEVEL 7 - 10 Impression 1. CKD 2. back pain 3. hld 4. htn 5. dm 6. proteinuria 7. 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
[2020-01-07 12:34] LABS: BASO % 0.9 % (0-2.0); EOS % 3.6 % (0-4.5); HEMOGLOBIN 9.3 GM/dL (11.7-16.9); MCH 33.8 pg (25.7-33.7); MCHC 33.1 g/dl (32.0-35.9); MEAN CELL VOLUME 102.1 fl (80-96); MEAN PLT VOLUME 10.4 fl (7.5-11.1); MONO % 8.4 % (3.8-10.2); NEUT % 78.1 % (42.8-82.8); PLATELET COUNT 105 K/MM3 (134-434); RBC 2.74 M/mm3 (4.00-5.60); RDW 16.1 % (11.9-15.9); WHITE BLOOD COUNT 4.8 K/mm3 (4.0-10.0)
[2020-01-07] MEDS ORDERED: ACETAMINOPHEN 1000 MG/100 ML VIAL (NON FORMULARY) IVPB ONE (12:48)
[2020-01-07 13:03] LABS: ALBUMIN 3.4 g/dl (3.4-5.0); BILIRUBIN,TOTAL 0.9 mg/dL (0.2-1); CALCIUM 9.1 mg/dL (8.5-10.1); CREATININE 2.4 mg/dL (0.55-1.3); POTASSIUM 4.3 mmol/L (3.5-5.1); TOT PROT 7.1 g/dl (6.4-8.2)
[2020-01-07] MEDS ORDERED: MAGNESIUM 1GM/D5W 100ML - 100 ML IVPB IVPB ONE (13:24)
[2020-01-07] MEDS ORDERED: METOCLOPRAMIDE HCL INJECTION 10 MG/2 ML VIAL IVPUSH ONE (13:24)
--- NOTE | 2020-01-07 13:46 | DS ---
Physical Exam: SUBJECTIVE: Patient seen and examined. No acute events overnight. OBJECTIVE: Vital Signs Period Temp Pulse Resp BP Sys/Espinosa Pulse Ox Last 24 Hr 97 F-98.2 F 52-78 18-20 130-158/52-79 96-100 PHYSICAL EXAM GENERAL: The patient is awake, in no acute distress. HEAD: Normal with no signs of trauma. EYES: conjunctiva clear. ENT: moist mucous membranes. LUNGS: Breath sounds equal, clear to auscultation bilaterally, no wheezes, no crackles, no accessory muscle use. HEART: Regular rate and rhythm, S1, S2 ABDOMEN: Soft, nontender, nondistended, normoactive bowel sounds EXTREMITIES: 2+ radial pulses, warm, well-perfused, no edema. NEUROLOGICAL:Normal speech, gait not observed. PSYCH: Normal mood, normal affect. SKIN: Warm, dry, normal turgor, no rashes or lesions noted. LABS Laboratory Results - last 24 hr 01/05/20 01/06/20 01/07/20 11:55 16:54 05:36 WBC RBC Hgb Hct MCV MCH MCHC RDW Plt Count MPV Absolute Neuts (auto) Neutrophils % Lymphocytes % Monocytes % Eosinophils % Basophils % Nucleated RBC % Sodium Potassium Chloride Carbon Dioxide Anion Gap BUN Creatinine Est GFR (CKD-EPI)AfAm Est GFR (CKD-EPI)NonAf POC Glucometer 170 170 Random Glucose Calcium Total Bilirubin AST ALT Alkaline Phosphatase Total Protein Albumin COVID-19 ([facility]ACK[facility]N) Not detected 01/07/20 01/07/20 01/07/20 11:14 12:00 12:00 WBC 4.8 RBC 2.74 L Hgb 9.3 L Hct 28.0 L MCV 102.1 H MCH 33.8 H MCHC 33.1 RDW 16.1 H Plt Count 105 L MPV 10.4 Absolute Neuts (auto) 3.7 Neutrophils % 78.1 D Lymphocytes % 9.0 D Monocytes % 8.4 Eosinophils % 3.6 Basophils % 0.9 Nucleated RBC % 0 Sodium 138 Potassium 4.3 Chloride 100 Carbon Dioxide 27 Anion Gap 11 BUN 67.0 H Creatinine 2.4 H Est GFR (CKD-EPI)AfAm 30.53 Est GFR (CKD-EPI)NonAf 26.34 POC Glucometer 205 Random Glucose 213 H Calcium 9.1 Total Bilirubin 0.9 AST 18 ALT 15 Alkaline Phosphatase 82 Total Protein 7.1 Albumin 3.4 COVID-19 ([facility]ACK[facility]N) HOSPITAL COURSE: Date of Admission:01/05/20 Date of Discharge: 01/07/20 Pt. is a 29 y.o. M presenting for ROWELL and back pain. Pt. treatch for acute CHF exacerbation and strongly encouraged to follow up with PCP and control and recovery combat rescue as detailed below. LE CT shows no acute pathology. Lumbar CT shows degenerative disc disease with slight nerve impingement on the left at L5. Pt. was seen by cardiology and Nephrology. Hospital follow up and medicatio adjustments as detailed below. Minutes to complete discharge: 30 Discharge Summary Problems reviewed: Yes Reason For Visit: LOW BACK PAIN/DYSPNEA ON EXERTION/FATIGUE Current Active Problems Anemia (Acute) Back pain (Acute) CAD (coronary artery disease) (Acute) CKD (chronic kidney disease) (Acute) Chronic anemia (Acute) Chronic venous hypertension with ulcer (Acute) ROWELL (dyspnea on exertion) (Acute) Dyslipidemia (Acute) Heart failure, diastolic, with acute decompensation (Acute) Hypertension (Acute) Lower back pain (Acute) Stage 3b chronic kidney disease (Acute) Type 2 diabetes mellitus (Acute) Condition: Guarded - Instructions Diet, Activity, Other Instructions: You came in for lower back pain and shortness of breath with activity. We imaged your back and saw that you have a mild/slight nerve impingment on one the left lower back (L5). We gave you a Lidoderm Patch for this. You were seen by nephrology here for your chronic kidney disease, that got better when we restarted you Lasix. You were seen here by Cardiology who agrees that you should have a stress test as outpatient. Please continue your medications as they were prescribed. We have started you on a Lidoderm Patch as needed for your back pain. Please remove after 24 hours. Please avoid temperature changes to the patch as this will affect how it works. Please apply to left lower back. Please follow up with your School Traffic Guard, Dr. Hearn within 1 week. Please follow up with your PCP within 1 week. Please follow up with your Sales Representative [employer] within 1 week, to schedule a stress test. Please follow up with your Neurologist within 1 week, for your back pain management. We have provided Dr. Trejo for you. Referrals: Rufus Trejo MD [Staff Physician] - 1 Week Lonny Maravilla MD [Primary Care Provider] - 1 Week ON STAFF,NOT [Non Staff, Medical] - Janna Hearn MD [Staff Physician] - 1 Week Disposition: HOME - Home Medications Comprehensive Discharge Medication List: Ambulatory Orders Omeprazole 40 mg PO DAILY 09/28/19 Carvedilol 12.5 mg PO Q12H 12/10/19 Clopidogrel Bisulfate [Clopidogrel] 75 mg PO DAILY 12/10/19 Cyanocobalamin [Vitamin B12 -] 1 tab PO DAILY 12/10/19 Ferrous Sulfate [Iron] 325 mg PO DAILY 12/10/19 Hydralazine HCl 25 mg PO BID 12/10/19 Isosorbide Dinitrate [Isordil] 10 mg PO BID 12/10/19 Rosuvastatin [Crestor -] 20 mg PO HS 12/10/19 Mupirocin Ointment [Bactroban 2% Ointment -] 1 applic TP BID applic 12/14/19 Furosemide 40 mg PO DAILY #10 tablet 12/15/19 Tramadol HCl 50 mg PO PRN 01/05/20 Lidocaine 5% Patch [Lidoderm -] 1 patch TP DAILY #30 patch 01/07/20 This patient is new to me today: Yes Date on this admission: 01/07/20 Emergency Visit: Yes ED Registration Date: 01/05/20 Care time: The patient presented to the Emergency Department on the above date and was hospitalized for further evaluation of their emergent condition. Critical Care patient: No - Discharge Referral Referred to [facility] Med P.C.: No ATTENDING PHYSICIAN STATEMENT I saw and evaluated the patient. I reviewed the resident's note and discussed the case with the resident. I agree with the resident's findings and plan as documented. SUBJECTIVE: OBJECTIVE: ASSESSMENT AND PLAN:
--- NOTE | 2020-01-07 15:57 | EKG ---
Test Reason : Blood Pressure : / mmHG Vent. Rate : 063 BPM Atrial Rate : 063 BPM P-R Int : 000 ms QRS Dur : 154 ms QT Int : 498 ms P-R-T Axes : 000 087 -84 degrees QTc Int : 509 ms SINUS RHYTHM WITH 1ST DEGREE AV BLOCK AND WITH FREQUENT PREMATURE VENTRICULAR COMPLEXES RIGHT BUNDLE BRANCH BLOCK ST- T WAVE ABNORMALITY, CONSIDER INFEROLATERAL ISCHEMIA ABNORMAL ECG WHEN COMPARED WITH ECG OF 06-JAN-2020 08:25, NO CLINICAL INFORMATION IS AVAILABLE Confirmed by LONI MONROY MD ([id number]) on 01/07/2020 3:57:14 PM Referred By: RASHAAD Conway DR Confirmed By:LONI MONROY MD
[2020-01-07] MEDS ORDERED: INSULIN (NOVOLOG) ASPART 100 UNITS/ML 10ML VIAL ONE (17:01)
[2020-01-07] MEDS ORDERED: PT OWN MED DRAWER 7, Y5N ONE (17:35)
[2020-01-07 18:01] VITALS: BP 137/61; PULSE 60; TEMP 98
--- NOTE | 2020-01-07 20:17 | PN ---
Teaching Attending Note Name of Resident: Rufus Paulson ATTENDING PHYSICIAN STATEMENT I saw and evaluated the patient. I reviewed the resident's note and discussed the case with the resident. I agree with the resident's findings and plan as documented. SUBJECTIVE: Patient seen and examined at bedside, denies complaints, had some episodes of nausea related to opioid use, cleared by Cardiology for OP follow up with [facility] at [facility]. [place] home. OBJECTIVE: Vital Signs Period Temp Pulse Resp BP Sys/Espinosa Pulse Ox Last 24 Hr 97 F-98.3 F 52-67 20-20 127-145/64-90 95-96 GENERAL: Obese, NAD, AAox3, speaking in full sentences HEENT NC/AT, EOMI, neck supple LUNGS: CTAB, no crackles HEART: S1, S2+, RRR ABDOMEN: Obese, Soft, NT, ND, BS+ EXTREMITIES: 2+ pulses, warm, well-perfused, 1+ edema NEUROLOGICAL: Cranial nerves II through XII grossly intact. Normal speech, gait not observed. PSYCH: Normal mood, normal affect. SKIN: Warm, dry, normal turgor, no rashes or lesions noted MSK: pain just above R buttock, TTP, no visible rash Vital Signs - 24 hr 01/06/20 01/06/20 01/07/20 21:00 22:00 02:00 Temperature 97.1 F L Pulse Rate 64 69 Respiratory 20 18 Rate Blood Pressure 147/79 145/77 O2 Sat by Pulse 100 99 Oximetry (%) 01/07/20 01/07/20 01/07/20 05:38 09:00 14:00 Temperature 97 F L 98.2 F 97.8 F Pulse Rate 78 60 64 Respiratory 20 20 20 Rate Blood Pressure 130/77 130/52 L 130/58 L O2 Sat by Pulse 99 Oximetry (%) 01/07/20 17:58 Temperature 98.0 F Pulse Rate 60 Respiratory 20 Rate Blood Pressure 137/61 O2 Sat by Pulse 96 Oximetry (%) Laboratory Results - last 24 hr 01/05/20 01/07/20 01/07/20 11:55 05:36 11:14 WBC RBC Hgb Hct MCV MCH MCHC RDW Plt Count MPV Absolute Neuts (auto) Neutrophils % Lymphocytes % Monocytes % Eosinophils % Basophils % Nucleated RBC % Sodium Potassium Chloride Carbon Dioxide Anion Gap BUN Creatinine Est GFR (CKD-EPI)AfAm Est GFR (CKD-EPI)NonAf POC Glucometer 170 205 Random Glucose Calcium Total Bilirubin AST ALT Alkaline Phosphatase Total Protein Albumin COVID-19 (JACKELYN) Not detected 01/07/20 01/07/20 01/07/20 12:00 12:00 16:30 WBC 4.8 RBC 2.74 L Hgb 9.3 L Hct 28.0 L MCV 102.1 H MCH 33.8 H MCHC 33.1 RDW 16.1 H Plt Count 105 L MPV 10.4 Absolute Neuts (auto) 3.7 Neutrophils % 78.1 D Lymphocytes % 9.0 D Monocytes % 8.4 Eosinophils % 3.6 Basophils % 0.9 Nucleated RBC % 0 Sodium 138 Potassium 4.3 Chloride 100 Carbon Dioxide 27 Anion Gap 11 BUN 67.0 H Creatinine 2.4 H Est GFR (CKD-EPI)AfAm 30.53 Est GFR (CKD-EPI)NonAf 26.34 POC Glucometer 248 Random Glucose 213 H Calcium 9.1 Total Bilirubin 0.9 AST 18 ALT 15 Alkaline Phosphatase 82 Total Protein 7.1 Albumin 3.4 COVID-19 ([facility]ACKELYN) Home Medications Medication Instructions Recorded Omeprazole 40 mg PO DAILY 09/28/19 Carvedilol 12.5 mg PO Q12H 12/10/19 Clopidogrel Bisulfate [Clopidogrel] 75 mg PO DAILY 12/10/19 Cyanocobalamin [Vitamin B12 -] 1 tab PO DAILY 12/10/19 Ferrous Sulfate [Iron] 325 mg PO DAILY 12/10/19 Hydralazine HCl 25 mg PO BID 12/10/19 Isosorbide Dinitrate [Isordil] 10 mg PO BID 12/10/19 Rosuvastatin [Crestor -] 20 mg PO HS 12/10/19 Mupirocin Ointment [Bactroban 2% 1 applic TP BID applic 12/14/19 Ointment -] Furosemide 40 mg PO DAILY #10 tablet 12/15/19 Tramadol HCl 50 mg PO PRN 01/05/20 Lidocaine 5% Patch [Lidoderm -] 1 patch TP DAILY #30 patch 01/07/20 ASSESSMENT AND PLAN: 69 M LBP s/p fall , r/o HIP fx HTN HLD CHF CABG CKD Morbid obesity T2DM GERD PAD Plan: Cont. current HF medications CT hip unrevealing except for OA changes DC Ultram, Tylenol for pain DC home with Cardiology follow up at [facility]
== END 2020-01-07 18:28 | disposition home or self-care (01) ==
LOC: JER 10:13 → JERBED 13:15 → J4W 16:38
PROVIDERS: ADMIT Internal Medicine
PROC: 3E033NZ Introduction of Analgesics, Hypnotics, Sedatives into Peripheral Vein, Percutaneous Approach (ICD-10-PCS; principal; 2020-01-05)
PROC: 3E033GC Introduction of Other Therapeutic Substance into Peripheral Vein, Percutaneous Approach (ICD-10-PCS; 2020-01-05)
PROC: 3E023GC Introduction of Other Therapeutic Substance into Muscle, Percutaneous Approach (ICD-10-PCS; 2020-01-05)
PROC: 3E013VG Introduction of Insulin into Subcutaneous Tissue, Percutaneous Approach (ICD-10-PCS; 2020-01-05)
DX: I13.0 Hypertensive heart and chronic kidney disease with heart failure and stage 1 through stage 4 chronic kidney disease, or unspecified chronic kidney disease (principal); I73.9 Peripheral vascular disease, unspecified; E13.22 Other specified diabetes mellitus with diabetic chronic kidney disease; M54.5 Low back pain; D64.9 Anemia, unspecified; Z95.1 Presence of aortocoronary bypass graft; R06.00 Dyspnea, unspecified; W18.39XA Other fall on same level, initial encounter; Y93.89 Activity, other specified; Y92.89 Other specified places as the place of occurrence of the external cause; E78.5 Hyperlipidemia, unspecified; Z95.5 Presence of coronary angioplasty implant and graft; K21.9 Gastro-esophageal reflux disease without esophagitis; E66.01 Morbid (severe) obesity due to excess calories; Z68.30 Body mass index [BMI] 30.0-30.9, adult; Z88.8 Allergy status to other drugs, medicaments and biological substances; Z87.891 Personal history of nicotine dependence; Z79.4 Long term (current) use of insulin
CPT/HCPCS: 36415; 71045-TC-FY; 72131-TC; 73700-TC-RT; 80048; 80053; 80061; 82962; 83721; 83735; 83880; 84484; 85025; 87081; 93005; 93010; 96372; 96374; 96375; 97116-GP; 97161-GP; 99285-25; G0378; J0131; J1644; U0003